=== PATIENT | female | born 1940 | race Caucasian/White ===

== ENCOUNTER → 2017-11-06 15:48 | Outpatient (CLI) | payer MEDICARE, SELFPAY ==
--- NOTE | 2017-11-06 | IMM_PTH ---
PATIENT: BRYANT MILIAN LOC: [facility] U#:[id number] AGE/SX: 85/F ROOM: RE11/06/[address]: Dr. Fer Banda MD : 1940 BED: DIS: SPEC #: [id number] RECD: 11/10/17 10:45 STATUS: PENG REQ #: [id number] LUIS M: 11/06/17 00:[address]: Fer Banda DEPT: IMMUNOHISTOCHEMISTRY RECD BY: Gricel Cooper ENTERED: 11/10/17 10:47 SP TYPE: IMMUNO OTHR DR: JULIA Romo Tissues: Right breast, NOS Procedures: CALPONIN-1 (add) CK5-6 (add) CK8 (add) E-CAD (add) HER2 VERONICA (add) KI-67 (add) P53 (add) MT (add) IN SITU HYBRIDIZATION P40 (add) ER (initial) PHYSICIAN & INSTITUTION [address] [address] SPECIMEN INFORMATION: Tissue Source: Right breast Clinical Info: Abnormal mammogram Specimen Number: [id number] CPT code: 93531, 26488 x6, 74290 x3 METHODOLOGY: Deparaffinized sections of prefer/formalin-fixed tissue or PAP/DQ stained slides are incubated with monoclonal/polyclonal antibodies/oligonucleotide probes. Localization is made via biotin free immunoperoxidase method. Appropriate controls are performed and reacted as expected. Results on target cell population are indicated in the following table: RESULTS: ANTIBODY / CLONE RESULT P53 (DO-7) negative, 0% Ki-67 (30-9) positive, low CK8 (69fcbyY41) positive CK5-6 (D5 & 1684) negative Calponin-1 (JO848C) negative P40 (BC28) negative E-Cad (ECH-6) positive MORPHOMETRIC ANALYSIS ER (clone 6F11) >95%, strong MT (clone 16/1E2) 72%, strong to moderate Her-2Neu (clone CB11) 1-2+ The prognostic test for HER2 is performed on formalin-fixed paraffin embedded tissue. A 3+ (positive) staining pattern is defined as intense, homogeneous, complete, circumferential membranous staining in >10% of contiguous tumor cells. A similar weak (2+) staining pattern is interpreted as equivocal. ZACARIAS follow-up testing is recommended for all equivocal cases. Positivity/negativity for ER/MT is reported if > or < 1% of the tumor cells are immuno- reactive, respectively. The ASCO/CAP criteria is used for scoring. Reference: Journal of Clinical Oncology, 2013; 31:8926-5680 & 2010; 16:0679-0579. Duration of fixation: 77 Hrs; Sample Adequate: Yes. These assays have not been validated on decalcified tissues. Results should be interpreted with caution given the likelihood of false negativity on decalcified specimens. These tests were developed and their performance characteristics determined by [facility]. They may not have been cleared or approved by the U.S. Food and Drug Administration. The FDA has determined that such clearance or approval is not necessary. 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 Positive for estrogen receptors (favorable prognostic indicator). Positive for progesterone receptors (favorable prognostic indicator). Equivocal for overexpression of ITQ3wxt. SJ:radha 11/11/17 ADDENDUM ADDENDUM ADDENDUM ADDENDUM ADDENDUM ADDENDUM ADDENDUM ADDENDUM ADDENDUM ADDENDUM ADDENDUM ADDENDUM ADDENDUM ADDENDUM ADDENDUM ADDENDUM ADDENDUM ADDENDUM ADDENDUM ADDENDUM ADDENDUM 11/12/2017 14:09 ADDENDUM 11/12/2017 14:09 ADDENDUM 11/12/2017 14:09 ADDENDUM 11/12/2017 14:09 ADDENDUM 11/12/2017 14:09 IN SITU HYBRIDIZATION (ZACARIAS) FOR HER2 Interpretation: Not Amplified HER2 : CEP-17 Ratio: 1.17 Average HER2 Signal: 3.75 Average CEP-17 Signal: 3.2 Number of Tumor Cells Scanned: 50 Interpretative Information: The INFORM HER2 Dual ZACARIAS DNA Probe Cocktail assay is performed on formalin-fixed paraffin embedded tissue and determines HER2 gene status by detecting HER2 copies via silver in situ hybridization (SISH) and Chromosome 17 copies via chromogenic red in situ hybridization on tumor cells. A minimum of 20 cells representing > 10% of contiguous and homogeneous invasive tumor cells were analyzed. HER2 gene status is classified as Non-amplified (HER2/Chr17 ratio < 2.0) or Amplified (HER2/Chr17 ratio greater than or equal to 2.0). If the resulting HER2/Chr17 ratio falls within 1.8 - 2.2 (Borderline), retesting by FISH is recommended. Reference: Jerri AC, Ambrosio NICOLE, Mildred DG, et al: Recommendations for Human Epidermal Growth Factor Receptor 2 Testing in Breast Cancer: [place] Society of Clinical Oncology / College of [employer] Clinical Practice Guideline Update. J Clin Oncol 31:3134-3836, 2013.
--- NOTE | 2017-11-06 14:15 | BRBX_PTH ---
PATIENT: BRYANT MILIAN LOC: [facility] U#:[id number] AGE/SX: 85/F ROOM: RE11/06/[address]: Dr. Fer Banda MD : 1940 BED: DIS: SPEC #: [id number] RECD: 11/06/17 15:38 STATUS: PENG MERI #: [id number] LUIS M: 11/06/17 14:[address]: Fer Banda DEPT: SURGICAL PATHOLOGY RECD BY: Gricel Cooper ENTERED: 11/07/17 15:30 SP TYPE: BREAST BX OTHR DR: JULIA Romo Tissues: Right breast, NOS Procedures: Surgery Specimen Level IV HEADER OPERATION: Ultrasound-guided needle core biopsy right breast PRE-OP DIAGNOSIS: Abnormal mammogram right breast TISSUE SUBMITTED: Needle core biopsy right breast ISCHEMIC TIME: 30 seconds FIXATION TIME: 77 hours MICROSCOPIC DIAGNOSIS Right breast, ultrasound-guided core biopsy: Invasive ductal carcinoma. Nuclear grade ? 2 Maximal length ? 7 mm AM:radha 11/10/17 COMMENT ER/OR/Wtl0xuo studies are being performed on sections of tumor and the results from this study will be reported separately ([id number]). Case has been reviewed in consultation with Dr. Miles who concurs with the above diagnosis. IDC:[id number] MICROSCOPIC DESCRIPTION Slides are reviewed. GROSS DESCRIPTION Received in fixative is one container labeled with the patient's name and designated right breast biopsy. The specimen consists of multiple elongated fragments of bond-yellow fibroadipose tissue that in aggregate measure 1.6 x 0.2 x 0.1 cm. The entire specimen is submitted in one cassette. / SJ:radha 11/07/17 TC:0 CPT: 62902 ADDENDUM ADDENDUM ADDENDUM ADDENDUM ADDENDUM ADDENDUM ADDENDUM ADDENDUM ADDENDUM ADDENDUM 05/24/2019 09:33 ADDENDUM 05/24/2019 09:33 ADDENDUM 05/24/2019 09:33 ADDENDUM 05/24/2019 09:33 ADDENDUM 05/24/2019 09:33 This addendum is added to incorporate an outside pathology consultation report. The case was examined at [facility] (#[id number]) and the following diagnosis was rendered. Right breast, ultrasound-guided core biopsy: Invasive ductal carcinoma, provisional histologic grade 2. Please see complete above mentioned consultation report in EMR
== END ==
PROVIDERS: Family Provider Physician Assistant; PCP Physician Assistant; Visit Provider Surgery
DX: R92.8 Other abnormal and inconclusive findings on diagnostic imaging of breast (principal); C50.911 Malignant neoplasm of unspecified site of right female breast
CPT/HCPCS: 88305; 88341; 88342; 88368

== ENCOUNTER → 2017-11-24 10:53 | Outpatient (CLI) | payer MEDICARE, SELFPAY ==
--- NOTE | 2017-11-24 11:30 | PET_ITS ---
EXAMINATION: FDG PET CT INDICATIONS: A 77-year-old female with reported history of carcinoma of the breast presenting for initial staging examination. COMPARISON EXAMINATION: None available. INDEX LESION SIZE SUV INTERPRETATION Right breast 14.2 mm x 24.5 mm (frame 165) 3.7 Fulfills quantitative criteria for viable neoplasm Right axilla (n R 2) 14.8 mm largest (frame 186) 2.5 (max) Fulfills quantitative criteria for viable neoplasm NON-INDEX LESION SIZE SUV INTERPRETATION Bilateral thoracic perihilum 2.0 (max) Quantitative criteria for viable neoplasm are not fulfilled TECHNIQUE: Following the intravenous administration of 13.62 mCi of F-18 deoxyglucose via the left antecubital fossa, multiplanar image acquisitions of the neck, chest, abdomen and pelvis to level of mid thigh, obtained at one hour post radiopharmaceutical administration contemporaneously interpreted with the current CT of the neck, chest, abdomen and pelvis to level of mid thigh, dated 11/24/17 via coregistration reveal: SERUM GLUCOSE LEVEL: 89 mg/dl. HEIGHT: 65 inches. WEIGHT: 102 lbs. FINDINGS: 1. Focal increased glucose metabolism is defined in the right breast generating a calculated maximum standard uptake value of 3.7. The maximal axial diameter of the corresponding hypermetabolic soft tissue density on review of CT of the thorax dated 11/24/17 is 14.2 mm (transverse) x 24.5 mm (AP). 2. Several foci of increased glucose concentration are manifest within the right axilla generating a calculated maximum standard uptake value of 2.5. The maximal axial diameter of the largest, most conspicuous hypermetabolic soft tissue density on review of CT of the thorax dated 11/24/17 is 14.8 mm (AP). 3. Normal physiologic distribution of the radiopharmaceutical is apparent in the hepatic (2.6) and splenic parenchyma, both renal units, bladder and visualized intestinal tract. There is symmetric and preserved glucose metabolism noted in the visualized portion of the frontal, occipital, temporal and parietal lobes of the cerebral cortex, as well as cerebral hemispheres and basal ganglia. Diffuse intestinal tract activity is noted throughout all four quadrants of the abdominal-pelvic retroperitoneum, mesentery consistent with normal physiologic distribution of the radiopharmaceutical. There is an increase in glucose concentration observed in the ascending and descending thoracic aorta. Prominent glucose concentration is demonstrated in the second-fifth lumbar vertebrae contiguous to the facet joints most consistent with degenerative arthritis. An increase in glucose concentration is defined in the paravertebral soft tissue musculature of the upper thoracic and lower lumbar spine most consistent with a component of muscle tension artifact. Pertinent CT findings are as follows. CHEST: Atherosclerotic calcification is defined in the thoracic aorta without evidence of dilatation, aneurysm formation. Coronary arterial calcification is observed. Bilateral axillary soft tissue densities are non-glucose avid. There are no parenchymal densities-nodules defined in the right-left hemithorax demonstrating discernible, quantitatively significant increased glucose metabolism. Calcification is defined within the right breast. A small hiatal hernia is defined. ABDOMEN AND PELVIS: Atherosclerotic calcification is defined in the abdominal aorta without evidence of dilatation, aneurysm formation. Pelvic arterial calcification is demonstrated. Right-left inguinal soft tissue densities are ametabolic. Calcifications are noted in the bilateral lower hemipelvis. SKELETAL: Degenerative changes defined in the cervical, thoracic and lumbar spine demonstrate no evidence for glucose hypermetabolism. PET/PET/CT Tumor Base -Thigh Init IMPRESSION: 1. ABNORMAL EXAMINATION INDICATIVE OF MALIGNANT VIABLE NEOPLASM. 2. Increased glucose concentration defined in the right breast fulfills quantitative criteria for viable neoplasm. 3. Right axillary hypermetabolic foci fulfill quantitative criteria for malignant transformation. 4. Enhanced glucose concentration visualized in the ascending and descending thoracic aorta is commensurate with activated leukocytes associated with atherosclerotic plaque formation. (Lenore et al, Clinical Nuclear Medicine 29:93, 2004). 5. Bilateral thoracic perihilar mild increased glucose concentration does not fulfill quantitative criteria for viable neoplasm. (Faiza et al, Journal of Clinical Oncology 16:2142, 1998). 6. No other quantitatively significant hypermetabolic abnormalities are noted. There is no definitive scintigraphic evidence of distant metastatic disease. Electronic Signature Ike Lucero D.O. Electronically Signed: Ike Lucero DO at 23:55 EDT Tel , Service support ,
== END ==
PROVIDERS: Family Provider Physician Assistant; PCP Physician Assistant; Visit Provider Internal Medicine Hematology & Oncology
DX: C50.111 Malignant neoplasm of central portion of right female breast (principal)
CPT/HCPCS: 78815; A9552; A4216

== ENCOUNTER → 2017-11-26 13:13 | Outpatient (CLI) | payer MEDICARE, SELFPAY ==
--- NOTE | 2017-11-26 13:15 | ECHOCS_ITS ---
Reason For Study: PRE OP (pre chemo) Procedure This was a 2D Doppler, Color Flow transthoracic echocardiogram. The study was technically limited. The study was technically difficult. Contrast injection was performed. Poor accoustic windows. Exam performed in department. Left Ventricle Normal size and thickness. The estimated ejection fraction is 75 %. Stage 1 diastolic dysfunction. No regional wall motion abnormalities noted. Right Ventricle Normal size and thickness. Normal systolic function. Atria Normal left atrium. Normal right atrium. Normal atrial septum. Mitral Valve The mitral valve is structurally normal. No prolapse or stenosis seen. Tricuspid Valve Normal tricuspid valve. Trivial tricuspid valve insufficiency. Right ventricular systolic pressure estimated to be 20 mmHg. Aortic Valve Normal aortic valve. Trisinus/trileaflet aortic valve. Pulmonic Valve Normal pulmonic valve. Trivial pulmonic valve insufficiency. Great Vessels Normal aortic root. Normal arch. Normal inferior vena cava. Inferior vena cava collapse with sniff. Pericardium/Pleural No pericardial effusion. MMode/2D Measurements & Calculations LVIDd: 3.4 cm IVSd: 1.2 cm Ao root diam: 3.0 cm LVIDs: 2.0 cm LVPWd: 1.1 cm LA dimension: 2.4 cm FS: 41.3 % Doppler Measurements & Calculations MV E max cecil: 74.7 cm/sec Lat Peak E' Cecil: 6.5 cm/sec Med Peak E' Cecil: 8.5 cm/sec MV A max cecil: 92.1 cm/sec E/E' lat: 11.5 E/E' med: 8.8 MV E/A: 0.81 Ao V2 max: 96.2 cm/sec LV V1 max: 64.0 cm/sec PA V2 max: 143.8 cm/sec Ao max P.7 mmHg LV V1 max P.7 mmHg TR max cecil: 191.4 cm/sec TR max P.7 mmHg Interpretation Summary The estimated ejection fraction is 75 %. Stage 1 diastolic dysfunction. Trivial tricuspid valve insufficiency. Right ventricular systolic pressure estimated to be 20 mmHg. The study was technically adequate. There is no comparison study available. Contrast injection was performed. Ordering Physician: Javan Castro Referring Physician: Javan Castro Performed By: Chelita Vasquez RDCS, RVT
== END ==
PROVIDERS: Family Provider Physician Assistant; PCP Physician Assistant; Visit Provider Internal Medicine Hematology & Oncology
DX: Z01.818 Encounter for other preprocedural examination (principal)
CPT/HCPCS: 93306; Q9957; A4216; C8929

== ENCOUNTER → 2018-11-03 | Outpatient (CLI) | payer MEDICARE, SELFPAY ==
[2018-10-27 11:29] VITALS: BMI 17.1
--- NOTE | 2018-11-03 10:53 | MRI_ITS ---
STUDY: BILATERAL BREAST MR WITHOUT AND WITH CONTRAST REASON FOR EXAM: Female, 78 years old. History of right breast cancer diagnosed in October 2017. Follow-up. TECHNIQUE: Multi-sequence multi-echo imaging of both breasts was performed with a dedicated breast coil. T1-weighted and T2-weighted images were performed before the administration of contrast. T1-weighted images were also performed after the administration of 9 IV Dotarem without complications. COMPARISON: Prior breast ultrasound dated August 25, 2018. Prior bilateral diagnostic mammogram dated October 09, 2017. FINDINGS: RIGHT BREAST: The breast tissue is scattered fibroglandular densities with minimal background enhancement. There are postsurgical changes noted in the right breast. There are no abnormal enhancing masses or areas of non-mass enhancement in the right breast. LEFT BREAST: The breast tissue is scattered fibroglandular densities with minimal background enhancement. There are no abnormal enhancing masses or areas of non-mass enhancement in the left breast. There are no enlarged or abnormal lymph nodes. There is no abnormality in the visualized regions of the chest or liver. MRI/Breast Bilateral W/O and W IMPRESSION: No abnormality noted on the bilateral breast MRI examination with contrast. CATEGORY: BIRADS Category 2: Benign. A letter regarding these results will be sent to the patient by the facility within 30 days. Electronically Signed: Rakesh Roque MD at 11:42 EDT , Service support ,
== END | disposition home or self-care (01) ==
PROVIDERS: Family Provider Physician Assistant; PCP Physician Assistant; Referring Provider Internal Medicine Hematology & Oncology; Visit Provider Internal Medicine Hematology & Oncology
DX: C50.911 Malignant neoplasm of unspecified site of right female breast (principal); C77.9 Secondary and unspecified malignant neoplasm of lymph node, unspecified
CPT/HCPCS: 77049; A9575; A4216; C8908

== ENCOUNTER 2019-06-30 10:32 | Inpatient (IN) | payer MEDICARE, SELFPAY ==
[2018-11-05 13:41] VITALS: BMI 17.1
[2019-06-30 10:33] VITALS: BP 167/65; PULSE 91; RESP 16; TEMP 37.2; O2SAT 98; BMI 18.1
[2019-06-30] MEDS: morphine 8 MG/ML Syringe SC (11:04)
--- NOTE | 2019-06-30 11:34 | ED.VIS.GEN ---
History of Present Illness Chief Complaint: Lower Extremity Injury Informant: Patient, Family Onset: Today Current Severity: Mild Narrative: Patient is status post right mastectomy related to breast cancer, she indicates she basically was trying to get up from the chair the seat cushion moved and she fell landing on her right hip this morning she did not strike her head, her only complaint is right hip pain she is unable to walk and brought in for evaluation Past Medical History - Allergies and Home Meds Allergies/Adverse Reactions: Allergies Penicillins Allergy (Intermediate, Verified 06/30/19 10:40) Magalis Primary Care Physician: Dannielle Blanco PA [Primary Care Provider] - Past Medical History: - - Recent right mastectomy related to breast cancer at [facility] Smoking Status: Current every day smoker Review of Systems General: Denies: Chills, Fever, Sweats Eyes: Denies: Visual changes - bilaterally, Diplopia ENT: Denies: Rhinorrhea, Sore throat Cardiovascular: Denies: Chest pain, Palpitations Respiratory: Denies: Dyspnea, Cough, Dyspnea on exertion Gastrointestinal: Denies: Abdominal pain, Nausea, Vomiting, Diarrhea, Melena, Hematochezia Genitourinary: Denies: Dysuria, Hematuria, Frequency Musculoskeletal: Reports: Extremity Pain, - - Right hip pain. Denies: Back pain Skin: Reports: - - Some minor postop discomfort related to the right mastectomy nothing related to the fall. Denies: Rash, Wounds Neurological: Denies: Headache, Weakness, Numbness Physical Exam Vital Signs/Narrative: Vital Signs Temp Pulse Resp BP Pulse Ox 06/30/19 10:33 99 F 91 16 167/65 H 98 General: Well nourished, Well developed, No Acute Distress Head: Normocephalic, Atraumatic Eyes: Perrl, EOMI ENT: Moist mucous membranes, No rhinorrhea Neck: Supple, Nontender Cardiovascular: Regular rate, Regular rhythm, No murmurs Respiratory: No distress, CTA bilaterally, Chest nontender, - - Right mastectomy incisions intact there is minor discomfort she states is basically postoperative nothing new or different Abdomen: Soft, Nontender, Nondistended, Normal bowel sounds Back: Nontender, Normal Inspection Extremities: No edema, Tenderness, - - She has decreased range of motion to the right hip with pain on palpation the knee tib-fib ankle and foot are unremarkable dorsi and plantar flexion normal neurovascular function normal the back is unremarkable the pelvis is stable the left lower extremity is unremarkable Skin: Normal color, No rash Neurological: Alert, Oriented x3, Cranial nerves II-XII grossly intact, Normal Strength, Normal Sensation Psychological: Normal affect, Normal Mood Diagnostic/Tx/Re-eval - Medical Decision Making Given all of the above x-rays obtained morphine for pain The patient's hip x-ray shows femoral neck subcapital fracture right screening labs chest x-ray other work-up pending at this time given all the above she was told of the above she would like to stay at [facility] for management of hip fracture we have contacted the hospitalist orthopedics [employer] will arrange admission Screening labs will be reviewed by the inpatient team Admit stable Final impression Right hip fracture secondary to fall Recent right mastectomy related to breast cancer ED Disposition - Plan for ED Patient: Referrals: Dannielle Blanco PA [Primary Care Provider] -
--- NOTE | 2019-06-30 11:51 | RAD_ITS ---
STUDY: X-RAY - PELVIS AND RIGHT HIP REASON FOR EXAM: Female, 79 years old. Right hip pain TECHNIQUE: 3 views of the pelvis and hip. COMPARISON: None. FINDINGS: There is impacted nondisplaced fracture of the right proximal femur at the femoral neck. The remainder of the osseous structures appear intact Moderate degenerative bilateral hip joint space narrowing. No significant soft tissue swelling. Prominent stool burden. IMPRESSION: Impacted right femoral neck fracture. Electronically Signed: Mike Alatorre, at 12:50 EST Tel , Service support , RAD/HIP, UNI W/ Pelvis 2-3 Views
--- NOTE | 2019-06-30 11:51 | RAD_ITS ---
STUDY: X-RAY CHEST REASON FOR EXAM: Female, 79 years old. Trauma TECHNIQUE: Single frontal view of the chest. COMPARISON: None. FINDINGS: Cardiac silhouette unremarkable. Pulmonary vascularity unremarkable. Aorta unremarkable. Surgical clips are seen overlying the right chest wall. No focal airspace opacities. No pleural effusions. Upper abdomen unremarkable. Osseous structures intact. No pneumothorax. RAD/Chest 1 View (Portable) IMPRESSION: No acute cardiopulmonary findings Electronically Signed: Mike Alatorre, at 12:52 EST Tel , Service support ,
--- NOTE | 2019-06-30 11:53 | EKG12_ITS ---
Test Reason : FALL Blood Pressure : / mmHG Vent. Rate : 072 BPM Atrial Rate : 072 BPM P-R Int : 172 ms QRS Dur : 072 ms QT Int : 404 ms P-R-T Axes : 080 058 075 degrees QTc Int : 442 ms Normal sinus rhythm Low voltage QRS Septal infarct , age undetermined Abnormal ECG Confirmed by BHARAT OCHOA, ISAIAH ([id number]), science editor OFE LOPEZ ([id number]) on 07/04/2019 9:48:34 AM Referred By: Chico Veliz Confirmed By:ROSA NICHOLSON MD
--- NOTE | 2019-06-30 11:57 | NURSING ---
NO OLD EKGS
[2019-06-30 12:39] LABS: Bacteria 0 SEEN /hpf (None Seen); Mucous, Urine 0 SEEN /hpf (<or=2+); Red Blood Cells-Urine 0 SEEN /hpf (0-5); Squamous Epithelial Cells - UA 0 SEEN /hpf (5-10); White Blood Cells 0 SEEN /hpf (0-5)
[2019-06-30 12:40] LABS: Color, Urine Yellow (Yellow); Glucose, Dipstick Normal (Normal); Ketone-Dipstick Negative (Negative); Leukocyte Esterase-Dipstick Negative /ul (Negative); Nitrite-Dipstick Negative (Negative); Occult Blood-Urine Negative /ul (Negative); Protein-Dipstick Negative (Negative); Urine Bilirubin Dipstick Negative (Negative); Urine Clarity Clear (Clear); Urine Urobilinogen Normal (Normal)
--- NOTE | 2019-06-30 12:56 | HP.PCM_ITS ---
Problem List (1) Status post fall Status: Acute (2) Hip fracture, right Status: Acute Qualifiers: Encounter type: initial encounter Fracture type: closed Qualified Code(s): S72.001A - Fracture of unspecified part of neck of right femur, initial encounter for closed fracture (3) Primary cancer of right female breast Status: Chronic (4) Regional lymph node metastasis present Status: Chronic (5) Tobacco dependency Status: Chronic (6) Bruit of left carotid artery Status: Chronic (7) Chronic rhinitis Status: Chronic (8) Thyromegaly Status: Chronic (9) Multinodular goiter Status: Chronic (10) Mild anemia Status: Chronic (11) Cholelithiases Status: Chronic (12) History of skin cancer Status: Chronic (13) Hemangioma Status: Chronic (14) Lentigo Status: Chronic (15) Keratosis Status: Chronic (16) Tobacco abuse Status: Chronic (17) Lung nodule Status: Chronic (18) Breast mass in female Status: Chronic (19) SOB (shortness of breath) Status: Acute History of Present Illness Date of Admission: 06/30/19 Chief Complaint: Right hip pain The patient is a 79 year old F with past medical history single for tobacco dependence, hypertension, right breast cancer for which she underwent mastectomy with axillary lymph node dissection couple of weeks prior to her admission at [facility] who presented to the ED with right hip pain. Patient states she was in her usual state of health when she slipped off a kitchen stool and fell to the ground subsequently developed right hip pain. Presented to the ED as a result. Imaging studies obtained in the emergency department demonstrated subcapital femoral neck fracture involving the right hip. Orthopedic surgeon on-call was notified and patient admitted to regular nursing floor for further management. Past Medical History Past Medical History (Chronic Problems): Chronic Problems (Last Reviewed 06/30/19 @ 12:59 by Chico Veliz MD) Primary cancer of right female breast (Chronic) Regional lymph node metastasis present (Chronic) Tobacco dependency (Chronic) Bruit of left carotid artery (Chronic) Chronic rhinitis (Chronic) Thyromegaly (Chronic) Multinodular goiter (Chronic) Mild anemia (Chronic) Cholelithiases (Chronic) History of skin cancer (Chronic) Hemangioma (Chronic) Lentigo (Chronic) Keratosis (Chronic) Tobacco abuse (Chronic) Lung nodule (Chronic) Breast mass in female (Chronic) Medical History: Medical History (Last Reviewed 06/30/19 @ 12:59 by Chico Veliz MD) Primary cancer of right female breast (Chronic) C50.911 Regional lymph node metastasis present (Chronic) C77.9 Pneumonia (Resolved) J18.9 Status post fall (Acute) Z91.81 Menopause (Resolved) Z78.0 Weight loss (Resolved) R63.4 Fatigue (Resolved) R53.83 Facial pain (Resolved) R51 Nausea (Resolved) R11.0 Bruit of left carotid artery (Chronic) R09.89 Chronic diarrhea (Resolved) K52.9 Bronchitis (Resolved) J40 Chronic rhinitis (Chronic) J31.0 Otitis media (Resolved) H66.90 Hyponatremia (Resolved) E87.1 Thyromegaly (Chronic) E01.0 Multinodular goiter (Chronic) E04.2 Mild anemia (Chronic) D64.9 Cholelithiases (Chronic) K80.20 Neoplasm (Resolved) D49.9 History of skin cancer (Chronic) Z85.828 Hemangioma (Chronic) D18.00 Lentigo (Chronic) L81.4 Keratosis (Chronic) L57.0 Tobacco abuse (Chronic) Z72.0 Lung nodule (Chronic) R91.1 Breast mass in female (Chronic) N63.0 SOB (shortness of breath) (Acute) R06.02 Breast cancer, right Onset Date: ~10/2017 C50.911 Allergies Penicillins Allergy (Intermediate, Verified 06/30/19 10:40) Hives Home Medications: Ambulatory Orders Medication Instructions Recorded calcium carbonate 600 mg calcium 600 mg PO ONCE tab 08/02/17 (1,500 mg) tablet omega-3 fatty acids 1,000 mg 1,000 mg PO QDAY 08/02/17 capsule vitamin B complex no.2 ER 100 mg 1 tab PO DAILY 08/02/17 tablet,extended release lisinopril 10 mg tablet 5 mg PO QDAY 08/07/17 Lorazepam [Ativan] 0.5 mg PO BID PRN PRN 11/20/17 Cannabidiol (Cbd) Extract 100 mg PO DAILY 10/27/18 [Epidiolex] Surgical History: Surgical History (Last Reviewed 06/30/19 @ 12:59 by Chico Veliz MD) S/P partial hysterectomy (Resolved) Z90.711 H/O thyroglossal duct cyst Z87.798 S/P breast biopsy Z98.890 Smoking Status: Current every day smoker - *Family History Maternal Family History: Family History (Last Reviewed 06/30/19 @ 12:59 by Chico Veliz MD) Brother Arthritis Mother Heart disease Review of Systems Constitutional: Denies: Anorexia, Chills, Fever, Night Sweats, Weight Change HEENT: Denies: Head Aches, Sinus Congestion, Sinus Drainage Cardiovascular: Denies: Chest Pain, Orthopnea, Palpitations, Paroxysmal Noc. Dyspnea Respiratory: Denies: Cough, Shortness of breath at rest, Shortness of breath upon exertion, Sputum production Gastrointestinal: Denies: Abdominal Pain, Hematemesis, Hematochezia, Nausea, Melena, Vomiting Genitourinary: Denies: Dysuria, Frequency, Hematuria, Urgency Musculoskeletal: Reports: Joint Pain. Denies: Joint Tenderness Skin: Denies: Rash Neurological: Denies: Focal weakness, Numbness, Tingling Psychiatric: Denies: Homicidal Ideations, Suicidal Ideations Hematologic/ Lymphatic: Denies: Easy Bruising, Easy Bleeding VTE Information - Inpt Only VTE Present on Admission: No VTE Mechan Device Prophylaxis: SCD's VTE Pharm Prophylaxis ordered?: Yes Patient Problems: Active and Suspected Problems (Last Reviewed 06/30/19 @ 12:59 by Chico Veliz MD) Hip fracture, right (Acute) Objective: GENERAL: cooperative HEENT: Atraumatic; EYES; Anicteric, Normal Conjunctiva NECK; supple, normal thyroid, RESPIRATORY: Diminished to auscultation CARDIOVASCULAR: Regular S1 S2, GI: soft, normoactive bowel sounds, : No Renal angle tenderness; EXTREMITIES: No edema, no clubbing, MUSCULOSKELETAL: Right hip tenderness NEURO: Awake; no lateralizing signs. SKIN: No Rash PSYCH; Flat affect - Physical Exam Vitals/I&O's: Vital Signs Temp Pulse Resp BP Pulse Ox 99 F 91 16 167/65 H 98 06/30/19 10:33 06/30/19 10:33 06/30/19 10:33 06/30/19 10:33 06/30/19 10:33 Weight: 50.9 kg Body Mass Index (BMI) 18.1 Laboratory Results 06/30/19 12:35: Urine Color Yellow, Urine Clarity Clear, Urine pH 8.0, Ur Specific [place] 1.010, Urine Protein Negative, Urine Glucose (UA) Normal, Urine Ketones Negative, Urine Occult Blood Negative, Urine Nitrite Negative, Urine Bilirubin Negative, Urine Urobilinogen Normal, Ur Leukocyte Esterase Negative, Urine RBC 0 SEEN, Urine WBC 0 SEEN, Ur Squamous Epith Cells 0 SEEN, Urine Ba cteria 0 SEEN, Urine Mucus 0 SEEN Assessment/Plan All Active Problems (Last Reviewed 06/30/19 @ 12:59 by Chico Veliz MD) Educational circumstance (Resolved) Hip fracture, right (Acute) S/P partial hysterectomy (Resolved) Pneumonia (Resolved) Status post fall (Acute) Menopause (Resolved) Weight loss (Resolved) Fatigue (Resolved) Facial pain (Resolved) Nausea (Resolved) Chronic diarrhea (Resolved) Bronchitis (Resolved) Otitis media (Resolved) Hyponatremia (Resolved) Neoplasm (Resolved) SOB (shortness of breath) (Acute) Patient is an 79-year-old lady who presented with right hip pain following a fall imaging studies demonstrated right femur neck subcapital fracture 1. Status post right femoral neck fracture ~ Patient has been admitted to the regular nursing floor immobilized, started on pain medication, consult placed to orthopedic surgery (Case was discussed with Dr. Herrera) for definitive management Did review patient presurgery diagnostic data including EKG (normal sinus rhythm without any evidence of ischemia); Did review patient electrolytes and CBC. Patient risk for surgery estimated to be low to moderate would recommend pro ceeding with surgery without any further evaluation 2. Right breast cancer ~ Status post mastectomy at [facility] couple of weeks prior to patient admission patient had received neoadjuvant chemotherapy prior to surgery. She is scheduled to undergo radiation therapy 3. Hypertension ~ blood pressure controlled, home medications continued with dose adjustment as needed 4. Tobacco dependence ~counseled on cessation, offered nicotine patch for tobacco cravings 5. DVT prophylaxis ~ SCDs for now with plans to initiate low molecular with heparin following her procedure Advance planning; did discuss with the patient and family regarding advanced directives as well as CODE STATUS. Did explain the various scenarios involved ( FULL CODE, DNR CCA, DNR CCA with no intubation, and DNR CC and what each meant) patient elected to remain full code with intubation and CPR if needed. Order was placed. Time spent on discussion 18 minutes. Clinical Impression(s) from Imaging Studies Chest X-Ray 06/30/19 11:51 IMPRESSION: No acute cardiopulmonary findings Electronically Signed: Mike Alatorre, at 12:52 EST Tel , Service support , Code Visit Inpatient E&M: 88477 Init Hosp L3 Procedures: 03239 Advncd Care Plan 30 Min
[2019-06-30 13:03] VITALS: BP 141/65; PULSE 72; RESP 14; O2SAT 96
[2019-06-30 13:12] LABS: Absolute Neutrophil Count 8.2 X10^3/uL (2.0-7.7); Basophil# 0.02 X10^3/uL; Basophil% 0.2 % (0-1); Eosinophil# 0.03 X10^3/uL; Eosinophils% 0.3 % (0-5); Hematocrit 41.6 % (37-47); Hemoglobin 14.3 g/dL (12.0-15.0); Mean Corp Hgb Conc 34.4 g/dL (32-36); Mean Corpuscular Volume 87.2 fL (81-99); Mean Platelet Vol. 8.6 fl (6.2-12.0); Monocyte# 0.43 X10^3/uL; Monocyte% 4.1 % (0-10); NRBC Flagged by Analyzer 0 % (0-5); Neutrophil # 8.22 X10^3/uL (2.7-7.7); Neutrophil % 77.8 % (47-70); POSITIVE COUNT YES; Platelet Count 175 K/mm3 (150-450); RBC Distribution Width CV 12.2 % (11.6-14.6); RBC Distribution Width SD 39.1 fl (35.1-43.9); Red Blood Count 4.77 M/mm3 (4.2-5.4); White Blood Count 10.6 K/mm3 (4.4-11.0)
[2019-06-30 13:22] LABS: Prothrombin Time (Protime)PT. 12.6 SECONDS (11.7-14.9)
[2019-06-30 13:28] VITALS: BP 141/65; PULSE 72; RESP 17; O2SAT 96
[2019-06-30 13:29] LABS: AST(SGOT) 33 U/L (15-37); Alanine Aminotransfer ALT/SGPT 34 U/L (13-56); Albumin, Serum 3.7 g/dL (3.2-5.0); Alkaline Phosphatase 126 U/L (45-117); Anion Gap 6 (5-15); BUN 13 mg/dL (7-18); Calcium,Total 9.1 mg/dL (8.5-10.1); Chloride 100 mmol/L (98-107); Creatinine, Serum 0.76 mg/dL (0.55-1.02); EST Glomerular Filtration Rate 77 mL/min (>60); Est Glom Filt Rate - Afr Amer 94 mL/min (>60); Estimated Creatinine Clearance 36.05 ml/min; Globulin 3.7 g/dL (2.2-4.2); Glucose 84 mg/dL (74-106); Magnesium 2.1 mg/dL (1.6-2.6); Potassium 4.1 mmol/L (3.5-5.1); Protein, Total 7.4 g/dL (6.4-8.2); Sodium Level 133 mmol/L (136-145)
--- NOTE | 2019-06-30 13:36 | NURSING ---
306 HIP FX KITTOE
[2019-06-30 13:54] LABS: Differential Indicated SCAN CRITERIA MET
[2019-06-30 14:17] VITALS: BMI 18.1
[2019-06-30 15:20] VITALS: BMI 18.4
[2019-06-30 15:26] VITALS: BP 142/72; PULSE 84; RESP 16; TEMP 36.9; O2SAT 95
[2019-06-30] MEDS: Acetaminophen 325 MG Tablet 650 MG PO (16:00)
--- NOTE | 2019-06-30 16:07 | CON.PCM_ITS ---
Reason for Consult Date of Consultation: 06/30/19 History of Present Illness: The patient is a 79 year old F who had an unwitnessed fall onto her right hip. Complains of pain in her right hip only. Patient brought to the emergency room x-rays show a nondisplaced valgus impacted femoral neck fracture. Patient denies pain in other joints. Ortho consulted. See chart for further details regarding complex medical history. [] Past Medical History Past Medical History (Chronic Problems): Chronic Problems (Last Reviewed 06/30/19 @ 12:59 by Chico Veliz MD) Chronic anxiety (Chronic) Primary cancer of right female breast (Chronic) Regional lymph node metastasis present (Chronic) Tobacco dependency (Chronic) Bruit of left carotid artery (Chronic) Chronic rhinitis (Chronic) Thyromegaly (Chronic) Multinodular goiter (Chronic) Mild anemia (Chronic) Cholelithiases (Chronic) History of skin cancer (Chronic) Hemangioma (Chronic) Lentigo (Chronic) Keratosis (Chronic) Tobacco abuse (Chronic) Lung nodule (Chronic) Breast mass in female (Chronic) Medical History: Medical History (Last Reviewed 06/30/19 @ 12:59 by Chico Veliz MD) Primary cancer of right female breast (Chronic) C50.911 Regional lymph node metastasis present (Chronic) C77.9 Pneumonia (Resolved) J18.9 Status post fall (Acute) Z91.81 Menopause (Resolved) Z78.0 Weight loss (Resolved) R63.4 Fatigue (Resolved) R53.83 Facial pain (Resolved) R51 Nausea (Resolved) R11.0 Bruit of left carotid artery (Chronic) R09.89 Chronic diarrhea (Resolved) K52.9 Bronchitis (Resolved) J40 Chronic rhinitis (Chronic) J31.0 Otitis media (Resolved) H66.90 Hyponatremia (Resolved) E87.1 Thyromegaly (Chronic) E01.0 Multinodular goiter (Chronic) E04.2 Mild anemia (Chronic) D64.9 Cholelithiases (Chronic) K80.20 Neoplasm (Resolved) D49.9 History of skin cancer (Chronic) Z85.828 Hemangioma (Chronic) D18.00 Lentigo (Chronic) L81.4 Keratosis (Chronic) L57.0 Tobacco abuse (Chronic) Z72.0 Lung nodule (Chronic) R91.1 Breast mass in female (Chronic) N63.0 SOB (shortness of breath) (Acute) R06.02 Breast cancer, right Onset Date: ~10/2017 C50.911 Allergies Penicillins Allergy (Intermediate, Verified 06/30/19 10:40) Hives Home Medications: Ambulatory Orders Medication Instructions Recorded lisinopril 10 mg tablet 5 mg PO DAILY 08/07/17 Vitamin B Complex 1 tab PO DAILY 06/30/19 Acetaminophen [Tylenol Tablet] 650 mg PO Q6H PRN PRN tab 07/05/19 Calcium Carbonate/Vitamin D3 1 ea PO BID #1 tab 07/05/19 [Os-Johnie 500+D3 Caplet] Docusate Sodium [Colace] 100 mg PO BID cap 07/05/19 Enoxaparin [Lovenox] 40 mg SUBCUT DAILY@0600 syringe 07/05/19 Ensure Enlive 120 ml PO 4X/DAY liquid 07/05/19 Lorazepam [Ativan] 0.5 mg PO BID PRN PRN #14 tab 07/05/19 Nicotine [Nicoderm Cq] 21 mg TRANSDERM. DAILY patch 07/05/19 Ondansetron [Zofran] 4 mg PO Q8H PRN PRN vial 07/05/19 Polyethylene Glycol 3350 [Miralax] 17 gm PO BID packet 07/05/19 Sodium Chloride 0.65% [Bates Nasal 2 spray NASAL TID PRN PRN 07/05/19 [place]] spray.btl Surgical History: Surgical History (Last Reviewed 06/30/19 @ 12:59 by Chico Veliz MD) S/P partial hysterectomy (Resolved) Z90.711 H/O thyroglossal duct cyst Z87.798 S/P breast biopsy Z98.890 Smoking Status: Current every day smoker Tobacco Use: Cigarettes - *Family History Maternal Family History: Family History (Last Reviewed 06/30/19 @ 12:59 by Chico Veliz MD) Brother Arthritis Mother Heart disease Review of Systems Constitutional: Denies: Chills, Fever, Weight Change HEENT: Denies: Head Aches, Sinus Congestion, Sinus Drainage Cardiovascular: Denies: Chest Pain, Palpitations Respiratory: Denies: Cough, Shortness of breath at rest, Sputum production Gastrointestinal: Denies: Abdominal Pain, Nausea, Vomiting Genitourinary: Denies: Dysuria Musculoskeletal: Reports: Joint Pain - Right hip. Denies: Joint Tenderness Skin: Denies: Rash, Wounds Neurological: Denies: Numbness, Tingling, Focal weakness Psychiatric: Denies: Anxiety, Depression, Homicidal Ideations, Suicidal Ideations Hematologic/ Lymphatic: Denies: Easy Bruising, Easy Bleeding - Physical Exam Vitals/I&O's: Vital Signs Temp Pulse Resp BP Pulse Ox 98.4 F 84 16 142/72 H 95 06/30/19 15:26 06/30/19 15:26 06/30/19 15:26 06/30/19 15:26 06/30/19 15:26 Oxygen Delivery Method Room Air Weight: 111 lb Body Mass Index (BMI) 18.4 General: Alert, Oriented x3, Cooperative HEENT: Atraumatic, PERRLA, EOMI, Normocephalic Neck: Supple, No JVD, Negative Carotid Bruits Lungs: Clear to auscultation, Normal air movement Cardiovascular: Regular rate, No murmurs Abdomen: Bowel Sounds Present, Soft, Non Tender Extremities: No edema, Capillary Refill Less than 3 Seconds Skin: No rashes, No breakdown Musculoskeletal: No Tenderness to Palpation of Joints or Extremities, Tenderness - Date of Homans sign, pain with motion of the right hip, secondary survey negative, active range of motion passive range of motion intact ankle, negative Homans Neurological: Cranial nerves II-XII grossly intact Psych/Mental Status: Normal Affect, Appropriate Laboratory Results 06/30/19 12:35: Urine Color Yellow, Urine Clarity Clear, Urine pH 8.0, Ur Specific [place] 1.010, Urine Protein Negative, Urine Glucose (UA) Normal, Urine Ketones Negative, Urine Occult Blood Negative, Urine Nitrite Negative, Urine Bilirubin Negative, Urine Urobilinogen Normal, Ur Leukocyte Esterase Negative, Urine RBC 0 SEEN, Urine WBC 0 SEEN, Ur Squamous Epith Cells 0 SEEN, Urine Bacteria 0 SEEN, Urine Mucus 0 SEEN 06/30/19 13:02: WBC 10.6, RBC 4.77, Hgb 14.3, Hct 41.6, MCV 87.2, MCH 30.0, MCHC 34.4, RDW Std Deviation 39.1, RDW Coeff of [place] 12.2, Plt Count 175, MPV 8.6, Immature Gran % (Auto) 0.600, Neut % (Auto) 77.8 H, Lymph % (Auto) 17.0 L, [place] % (Auto) 4.1, Eos % (Auto) 0.3, Baso % (Auto) 0.2, Absolute Neuts (auto) 8.2 H, Absolute Lymphs (auto) 1.80, Nucleated RBC % 0 06/30/19 13:02: PT 12.6, INR 1.0 06/30/19 13:02: Sodium 133 L, Potassium 4.1, Chloride 100, Carbon Dioxide 27.0, Anion Gap 6, BUN 13, Creatinine 0.76, Estim Creat Clear Calc 36.05, Est GFR (MDRD) Af Amer 94, Est GFR (MDRD) Non-Af 77, BUN/Creatinine Ratio 17.0, Glucose 84, Calcium 9.1, Magnesium 2.1, Total Bilirubin 0.30, AST 33, ALT 34, Alkaline Phosphatase 126 H, Total Protein 7.4, Albumin 3.7, Globulin 3.7, Albumin/Globulin Ratio 1.0 Current Medications Acetaminophen (Tylenol) 650 mg PO Q6H PRN PRN PRN Reason: Pain Score 1-3/Temp > 100.7 F Al Hydroxide/Mg Hydroxide (Mylanta Ii) 30 ml PO Q6H PRN PRN PRN Reason: Gastric Burning Albuterol Sulfate (Ventolin Aerosols) 2.5 mg INHALATION Q2H PRN PRN PRN Reason: Shortness of Breath/Wheezing Enoxaparin Sodium (Lovenox) 40 mg SC DAILY@0600 [facility] Guaifenesin (Robitussin) 20 ml PO Q4H PRN PRN PRN Reason: COUGH Lisinopril (Zestril) 5 mg PO DAILY [facility] Lorazepam (Ativan) 0.5 mg PO BID PRN PRN PRN Reason: ANXIETY Magnesium Hydroxide (Milk Of Magnesia) 30 ml PO DAILY PRN PRN PRN Reason: Constipation Melatonin (Melatonin) 3 mg PO QHS PRN PRN PRN Reason: INSOMNIA Morphine Sulfate () 4 mg IV Q3H PRN PRN PRN Reason: Pain Score 6-10/10 Nicotine (Nicoderm Cq (Pbkc)) 21 mg TRANSDERM. DAILY [facility] Nitroglycerin (Nitrostat) 0.4 mg SUBLINGUAL Q5M PRN PRN Reason: CARDIAC/CHEST PAIN Ondansetron HCl (Zofran) 4 mg IV Q8H PRN PRN PRN Reason: NAUSEA/VOMITING Oxycodone HCl (Oxyir) 10 mg PO Q4H PRN PRN PRN Reason: Pain Score 4-5/10 Sodium Chloride () 10 - 40 ml IV UD PRN PRN Reason: SALINE FLUSH Assessment/Plan All Active Problems (Last Reviewed 06/30/19 @ 12:59 by Chico Veliz MD) Educational circumstance (Resolved) Hip fracture, right (Acute) S/P partial hysterectomy (Resolved) Pneumonia (Resolved) Status post fall (Acute) Menopause (Resolved) Weight loss (Resolved) Fatigue (Resolved) Facial pain (Resolved) Nausea (Resolved) Chronic diarrhea (Resolved) Bronchitis (Resolved) Otitis media (Resolved) Hyponatremia (Resolved) Neoplasm (Resolved) SOB (shortness of breath) (Acute) 2 OR tomorrow for right hip 3 cannulated screw fixation valgus impacted femoral neck fracture Discussed pros and cons to a 3 screws versus hemiarthroplasty. Patient is unable to be weightbearing on her right upper extremity due to the fact that she does had a mastectomy and tubes pulled recently due to her breast cancer and since she will be nonweightbearing and just had surgery recently we will attempt 3 screw fixation discussed in detail the risks associated with this including avascular necrosis and nonhealing of this and conversion to a hemiarthroplasty. Patient would like to try to the less invasive procedure as she is just again had surgery for breast cancer for her on her right side and this is a ipsilateral femoral neck fracture. We will follow her closely get repeat serial x-rays and if this does fail just remove the screws and converted to a theresa-at that time. Patient states no antecedent pain however we will still send reamings at the time of surgery d/t her breast CA Reviewed the pre-operative plans with the patient. Risks and benefits of the procedure were fully explained, including but not limited to infection, neurovascular injury, continued pain, arthritis, stiffness, need for further surgery, re-injury, DVT, PE, general risks of anesthesia, and loss of limb or life. The patient understands all the risks and does wish to proceed with written consent. Ancef 2 g on-call to the OR N.p.o. after midnight discussed with nurse Call with any concerns or questions This note was generated with [employer] software. It may contain incorrect words, spelling, and punctuation that were not noted in checking the note before signing. [id number] dr rdz
[2019-06-30] MEDS: Ondansetron 4 MG/2 ML Vial IV (16:08)
[2019-06-30] MEDS: 0.9% Saline Lock 10 ML Syringe IV ×2 (16:09→21:06)
[2019-06-30] MEDS: Dextrose 5%/0.9% NaCl 1,000 ML 75 ML IV (16:49)
[2019-06-30 19:40] VITALS: RESP 18; O2SAT 96
[2019-06-30 20:53] VITALS: BP 167/76; PULSE 93; RESP 18; TEMP 36.7; O2SAT 93
[2019-06-30] MEDS: Morphine 4 MG/ML Syringe IV (21:06)
[2019-07-01] VITALS (10 sets, daily range): BP systolic 140–185; BP diastolic 66–83; PULSE 78–96; RESP 16–28; TEMP 36.3–37.2; O2SAT 93–100; BMI 18.6; BMI 18.1
--- NOTE | 2019-07-01 | HIP_PTH ---
PATIENT: BRYANT MILIAN LOC: MS3 U#:[id number] AGE/SX: 79/F ROOM: PR306 RE06/30/[address]: Dr. Choco Quintero DO : 1940 BED: 1 DIS: 07/05/2019 SPEC #: [id number] RECD: 07/01/19 14:13 STATUS: PENG REQ #: [id number] LUIS M: 07/01/19 00:[address]: Diamond Herrera DEPT: SURGICAL PATHOLOGY RECD BY: Ludwin Renae ENTERED: 07/01/19 14:13 SP TYPE: TOTAL HIP OTHR DR: DO Dr. Chico Shine MD Melissa Palmer, PA Tissues: Hip, NOS Procedures: Decalcification bone/plaque Surgery Specimen Level IV Comments: @ Ordering doctor for DEC edited from to @ by DARION at 07/01/19 1448 @ Ordering doctor for SUIV edited from to @ by DARION at 07/01/19 1448 @ Submitting doctor edited from to @ by DARION at 07/01/19 1448 HEADER OPERATION: Percutaneous screw pinning PRE-OP DIAGNOSIS: Right hip fracture, acute TISSUE SUBMITTED: Bone and tissue right hip MICROSCOPIC DIAGNOSIS Bone and tissue, right hip: Pieces of benign fibroadipose tissue, fibroconnective tissue, skeletal muscle tissue and bone, with focal area of hemorrhage, clinically right hip fracture. SUKUMAR:jose 07/07/19 MICROSCOPIC DESCRIPTION Slides are reviewed. GROSS DESCRIPTION Received is one container labeled with the patient's name and designated bone and tissue right hip. The specimen consists of multiple minute fragments of reddish-bond soft tissue measuring in aggregate 1.5 x 0.5 x 0.1 cm. The specimen is submitted in its entirety in one cassette after decalcification. / AM:radha 07/01/19 TC: 5 CPT: 20136, 08371
[2019-07-01 05:48] LABS: Absolute Lymphocyte Count 0.99 X10^3/uL (0.83-4.51); Absolute Neutrophil Count 6.3 X10^3/uL (2.0-7.7); Basophil# 0.02 X10^3/uL; Basophil% 0.3 % (0-1); Eosinophil# 0.06 X10^3/uL; Eosinophils% 0.8 % (0-5); Hematocrit 33.3 % (37-47); Hemoglobin 11.4 g/dL (12.0-15.0); Lymphocyte # 0.99 X10^3/ul (4.0); Lymphocyte % 12.8 % (19-41); Mean Corp Hgb Conc 34.2 g/dL (32-36); Mean Corpuscular Hgb 29.9 pg (27.0-32.0); Mean Corpuscular Volume 87.4 fL (81-99); Mean Platelet Vol. 8.5 fl (6.2-12.0); Monocyte# 0.37 X10^3/uL; Monocyte% 4.8 % (0-10); NRBC Flagged by Analyzer 0 % (0-5); Neutrophil # 6.27 X10^3/uL (2.7-7.7); Neutrophil % 80.9 % (47-70); Platelet Count 230 K/mm3 (150-450); RBC Distribution Width CV 12.4 % (11.6-14.6); RBC Distribution Width SD 39.7 fl (35.1-43.9); Red Blood Count 3.81 M/mm3 (4.2-5.4); White Blood Count 7.7 K/mm3 (4.4-11.0)
[2019-07-01] MEDS: Dextrose 5%/0.9% NaCl 1,000 ML 75 ML IV (05:55)
[2019-07-01 06:05] LABS: Anion Gap 5 (5-15); BUN 17 mg/dL (7-18); BUN/Creat Ratio 23.3 RATIO (10-20); Calcium,Total 7.9 mg/dL (8.5-10.1); Chloride 105 mmol/L (98-107); Creatinine, Serum 0.73 mg/dL (0.55-1.02); EST Glomerular Filtration Rate 81 mL/min (>60); Est Glom Filt Rate - Afr Amer 99 mL/min (>60); Estimated Creatinine Clearance 35.66 ml/min; Glucose 241 mg/dL (74-106); Magnesium 1.8 mg/dL (1.6-2.6); Potassium 3.9 mmol/L (3.5-5.1); Sodium Level 134 mmol/L (136-145)
[2019-07-01 06:20] LABS: Thyroid Stim Hormone (TSH) 0.25 uIU/mL (0.358-3.74)
--- NOTE | 2019-07-01 08:46 | PCM.PN.HOSP ---
Patient Problems: Active and Suspected Problems (Last Reviewed 06/30/19 @ 12:59 by Chico Veliz MD) Hip fracture, right (Acute) Reason for Visit: right hip fracture Subjective: right hip fracture Objective: GENERAL: cooperative HEENT: Atraumatic; EYES; Anicteric, Normal Conjunctiva NECK; supple, normal thyroid, RESPIRATORY: Diminished to auscultation CARDIOVASCULAR: Regular S1 S2, GI: soft, normoactive bowel sounds, : No Renal angle tenderness; EXTREMITIES: No edema, no clubbing, MUSCULOSKELETAL: Right hip tenderness NEURO: Awake; no lateralizing signs. SKIN: No Rash PSYCH; Flat affect Vitals/I&O's: Vital Signs Temp Pulse Resp BP Pulse Ox 97.9 F 88 16 161/77 H 94 07/01/19 03:22 07/01/19 03:22 07/01/19 03:22 07/01/19 03:22 07/01/19 03:22 Oxygen Delivery Method Room Air Weight: 50.349 kg Body Mass Index (BMI) 18.4 Intake and Output for Last 24 Hours 06/29/19 06/30/19 07/01/19 23:59 23:59 23:59 Intake Total 1032.5 / 1032.5 Output Total 100 / 150 300 / 300 Balance -100 / -100 732.5 / 732.5 Laboratory Results 06/30/19 12:35: Urine Color Yellow, Urine Clarity Clear, Urine pH 8.0, Ur Specific [place] 1.010, Urine Protein Negative, Urine Glucose (UA) Normal, Urine Ketones Negative, Urine Occult Blood Negative, Urine Nitrite Negative, Urine Bilirubin Negative, Urine Urobilinogen Normal, Ur Leukocyte Esterase Negative, Urine RBC 0 SEEN, Urine WBC 0 SEEN, Ur Squamous Epith Cells 0 SEEN, Urine Bacteria 0 SEEN, Urine Mucus 0 SEEN 06/30/19 13:02: WBC 10.6, RBC 4.77, Hgb 14.3, Hct 41.6, MCV 87.2, MCH 30.0, MCHC 34.4, RDW Std Deviation 39.1, RDW Coeff of Fernando 12.2, Plt Count 175, MPV 8.6, Immature Gran % (Auto) 0.600, Neut % (Auto) 77.8 H, Lymph % (Auto) 17.0 L, [place] % (Auto) 4.1, Eos % (Auto) 0.3, Baso % (Auto) 0.2, Absolute Neuts (auto) 8.2 H, Absolute Lymphs (auto) 1.80, Nucleated RBC % 0 06/30/19 13:02: PT 12.6, INR 1.0 06/30/19 13:02: Sodium 133 L, Potassium 4.1, Chloride 100, Carbon Dioxide 27.0, Anion Gap 6, BUN 13, Creatinine 0.76, Estim Creat Clear Calc 36.05, Est GFR (MDRD) Af Amer 94, Est GFR (MDRD) Non-Af 77, BUN/Creatinine Ratio 17.0, Glucose 84, Calcium 9.1, Magnesium 2.1, Total Bilirubin 0.30, AST 33, ALT 34, Alkaline Phosphatase 126 H, Total Protein 7.4, Albumin 3.7, Globulin 3.7, Albumin/Globulin Ratio 1.0 07/01/19 05:18: WBC 7.7, RBC 3.81 L, Hgb 11.4 L, Hct 33.3 L, MCV 87.4, MCH 29.9, MCHC 34.2, RDW Std Deviation 39.7, RDW Coeff of Fernando 12.4, Plt Count 230, MPV 8.5, Immature Gran % (Auto) 0.400, Neut % (Auto) 80.9 H, Lymph % (Auto) 12.8 L, [place] % (Auto) 4.8, Eos % (Auto) 0.8, Baso % (Auto) 0.3, Absolute Neuts (auto) 6.3, Absolute Lymphs (auto) 0.99, Nucleated RBC % 0 07/01/19 05:18: Sodium 134 L, Potassium 3.9, Chloride 105, Carbon Dioxide 24.0, Anion Gap 5, BUN 17, Creatinine 0.73, Estim Creat Clear Calc 35.66, Est GFR (MDRD) Af Amer 99, Est GFR (MDRD) Non-Af 81, BUN/Creatinine Ratio 23.3 H, Glucose 241 H, Calcium 7.9 L, Magnesium 1.8 07/01/19 05:18: TSH 0.25 L 07/01/19 05:18: Blood Type O POSITIVE, Antibody Screen NEGATIVE Current Medications Acetaminophen (Tylenol) 650 mg PO Q6H PRN PRN PRN Reason: Pain Score 1-3/Temp > 100.7 F Last Admin: 06/30/19 16:00 Dose: 650 mg Documented by: Al Hydroxide/Mg Hydroxide (Mylanta Ii) 30 ml PO Q6H PRN PRN PRN Reason: Gastric Burning Albuterol Sulfate (Ventolin Aerosols) 2.5 mg INHALATION Q2H PRN PRN PRN Reason: Shortness of Breath/Wheezing Enoxaparin Sodium (Lovenox) 40 mg SC DAILY@0600 [facility] Guaifenesin (Robitussin) 20 ml PO Q4H PRN PRN PRN Reason: COUGH Dextrose/Sodium Chloride (Dextrose 5%/0.9% Nacl) 1,000 mls @ 75 mls/hr IV .[id number] [facility] Last Admin: 07/01/19 05:55 Dose: 75 mls/hr Documented by: Lisinopril (Zestril) 5 mg PO DAILY [facility] Lorazepam (Ativan) 0.5 mg PO BID PRN PRN PRN Reason: ANXIETY Magnesium Hydroxide (Milk Of Magnesia) 30 ml PO DAILY PRN PRN PRN Reason: Constipation Melatonin (Melatonin) 3 mg PO QHS PRN PRN PRN Reason: INSOMNIA Morphine Sulfate () 4 mg IV Q3H PRN PRN PRN Reason: Pain Score 6-10/10 Last Admin: 06/30/19 21:06 Dose: 4 mg Documented by: Nicotine (Nicoderm Cq (Pbkc)) 21 mg TRANSDERM. DAILY [facility] Last Admin: 06/30/19 16:48 Dose: 21 mg Documented by: Nitroglycerin (Nitrostat) 0.4 mg SUBLINGUAL Q5M PRN PRN Reason: CARDIAC/CHEST PAIN Ondansetron HCl (Zofran) 4 mg IV Q8H PRN PRN PRN Reason: NAUSEA/VOMITING Last Admin: 06/30/19 16:08 Dose: 4 mg Documented by: Oxycodone HCl (Oxyir) 10 mg PO Q4H PRN PRN PRN Reason: Pain Score 4-5/10 Sodium Chloride () 10 - 40 ml IV UD PRN PRN Reason: SALINE FLUSH Last Admin: 06/30/19 21:06 Dose: 10 ml Documented by: Medical Necessity - Tobacco Use Smoking Status: Current every day smoker Tobacco Use: Cigarettes Assessment/Plan All Active Problems (Last Reviewed 06/30/19 @ 12:59 by Chico Veliz MD) Educational circumstance (Resolved) Hip fracture, right (Acute) S/P partial hysterectomy (Resolved) Pneumonia (Resolved) Status post fall (Acute) Menopause (Resolved) Weight loss (Resolved) Fatigue (Resolved) Facial pain (Resolved) Nausea (Resolved) Chronic diarrhea (Resolved) Bronchitis (Resolved) Otitis media (Resolved) Hyponatremia (Resolved) Neoplasm (Resolved) SOB (shortness of breath) (Acute) Patient is an 79-year-old lady who presented with right hip pain following a fall imaging studies demonstrated right femur neck subcapital fracture 1. Status post right femoral neck fracture ~ Patient has been admitted to the regular nursing floor immobilized, started on pain medication, consult placed to orthopedic surgery (Case was discussed with Dr. Herrera) for definitive management Did review patient presurgery diagnostic data including EKG (normal sinus rhythm without any evidence of ischemia); Did review patient electrolytes and CBC. Patient has no previous history of congestive heart failure ischemic heart disease CVA diabetes or renal insufficiency. Patient risk for surgery estimated to be low to moderate would recommend proceeding with surgery without any further evaluation 2. Right breast cancer ~ Status post mastectomy at [facility] couple of weeks prior to patient admission patient had received neoadjuvant chemotherapy prior to surgery. She is scheduled to undergo radiation therapy 3. Hypertension ~ blood pressure controlled, home medications continued with dose adjustment as needed 4. Tobacco dependence ~counseled on cessation, offered nicotine patch for tobacco cravings 5. DVT prophylaxis ~ SCDs for now with plans to initiate low molecular with heparin following her procedure Code Visit Inpatient E&M: 23126 Subs Hosp L2
[2019-07-01] MEDS: Ondansetron 4 MG/2 ML Vial IV (10:08)
[2019-07-01] MEDS: Morphine 4 MG/ML Syringe IV (10:08)
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
--- NOTE | 2019-07-01 11:31 | NURSING ---
report given to mónica gill in ac-pt to or area
--- NOTE | 2019-07-01 12:00 | RAD_ITS ---
STUDY: X-RAY - RIGHT HIP REASON FOR EXAM: ORIF of hip fracture. TECHNIQUE: 2 intraoperative images of the hip. COMPARISON: Radiographs 06/30/2019. FINDINGS: There are 3 orthopedic screws transfixing a right femoral neck fracture in satisfactory alignment and position. Electronically Signed: Wes Fuentes MD at 14:04 EST Tel , Service support , RAD/Hip Min 2 Views (Portable)
[2019-07-01] MEDS: Cefazolin 2 GM in 0.9% Normal Saline 100 ML IV (12:15)
--- NOTE | 2019-07-01 12:28 | OP.PCM_ITS ---
Report of Operation Date of Procedure: 07/01/19 Anesthesiologist: Jose Luis Jeffrey Specimen's removed: bone from femoral neck Estimated Blood Loss (mL): 50cc Fluids Replaced: 600cc lr Description of Procedure: Preop note Patient is an 79-year-old female who fell onto her buttock right side at home. Patient sustained immediate pain x-rays in the ER showed a nondisplaced valgus impacted femoral neck fracture. Patient has a recent history can significant for breast cancer with radical mastectomy as well as lymph node dissection and is nonweightbearing on her right upper extremity. We discussed different treatment options for this including percutaneous screws versus hemiarthroplasty. Patient does has significant surgery as she is going to be nonweightbearing on her right upper extremity regardless we will attempt to do a less invasive surgical procedure with the risk of it not healing and converting to a hemiarthroplasty versus a larger hemiarthroplasty blood loss given the fact that this is valgus impacted nondisplaced is still treatment is 3 cannulated screws however we did discuss risks and benefits with the family. Risks including but not limited to blood loss, blood clot, infection, neurovascular, failure procedure, loss of life and loss of limb. We discussed morbidity mortality associated with hip fractures in the elderly's within the first year family acknowledge awareness. We will proceed with right hip cannulated screw fixation. Operative note Patient seen and examined preop holding area. Right leg was marked. Patient brought to the operating room placed supine on the operative table. Signed, anesthesia, antibiotics were administered. The right leg was prepped and draped in usual sterile fashion after she was placed in the fracture table. The left leg was then flexed Right-sided and all bony promises well-padded. We then attempted to see if we could reduce her at all we did do a slight reduction in abduction took a little bit of the valgus impaction out we confirmed lateral planes with an further malrotated bowel reduce the hip fracture. We then prepped and draped the right leg standard technique. We measured the with a guidepin for our correct angle insertion for our inferior central screw percutaneous. Timeout was performed. We then made incision over the lateral aspect of the femur right over the lesser trochanter the patient first guidewire center on the AP plane and inferior along the neck. We then placed using the bullet guide of superior and posterior or anterior superior and anterior posterior guidepins as well confirming in both AP and lateral planes good fixation and crossing the fracture site we then measured accordingly and plate and placed our screw fixation using short threads confirming in AP and lateral planes with the front thrusted across the fracture site which they did. We then irrigated the incision with copious amounts of sterile saline. The incision was closed with deep 2-0 Vicryl and samson on the skin. Sterile dressings were applied. Patient tired procedure well no complication transferred recovery room in stable condition. Postoperative note Nonweightbearing right lower extremity is nonweightbearing right upper stomach from breast surgery recently [facility] Physical therapy [facility] This note was generated with [employer]en[employer] dictation software. It may contain incorrect words, spelling, and punctuation that were not noted in checking the note before signing. Discussed with family in detail preoperatively and answered any questions that they had postoperatively as well about the need for her to most likely go to inpatient rehab if she is going be nonweightbearing for at least minimum of 6 weeks until we can see some healing and again the risk associated with this does not heal she develops avascular necrosis the need to conversion to hemiarthroplasty family is aware.
[2019-07-01] MEDS: Mupirocin Ointment 22gm Tube 1 APPLIC (13:33)
[2019-07-01] MEDS: 0.9% Normal Saline 1,000 ML 75 ML IV ×2 (14:30→23:06)
--- NOTE | 2019-07-01 14:32 | CASEMGMT ---
Social Work Note GENARO faxed initial referral to [facility]. GENARO placed a call to Gifty at [facility] and provided referral. GENARO informed Gifty that this worker doesn't have PT/OT yet but will fax PT/OT once available. Plan: [facility] pending acceptance and pre-cert Thao Fry SENIOR MECHANICAL ENGINEER, MEDICATION CARE MANAGER
--- NOTE | 2019-07-01 14:59 | CHAPLAIN ---
patient is out of the room; left a calling card
[2019-07-01] MEDS: Lisinopril 5 MG Tablet PO (15:09)
--- NOTE | 2019-07-01 15:39 | CASEMGMT ---
Social Work Note SW received call from Gifty at [facility] asking if pt has radiation treatment scheduled. GENARO updated Gifty that per pt she doesn't have radiation treatment scheduled yet and she needs to follow up with Dr. Adamson to discuss radiation treatment options. Gifty also states that pt currently takes CBC oils and pt won't be able to take those while at [facility]. GENARO informed Gifty that pt just got back to floor from surgery and this worker will update her tomorrow. GENARO also updated Gifty that PT/OT will likely work with pt tomorrow and then this worker will fax PT/OT when available. Gifty states understanding, states she is able to accept and will submit for pre-cert once PT/OT evaluations are completed. Plan: [facility] pending pre-cert Thao Fry MSW, RETAIL SALESWORKER
[2019-07-01] MEDS: Cefazolin 1 GM/50 ML BAG IV (20:43)
[2019-07-01] MEDS: Acetaminophen 325 MG Tablet 650 MG PO (20:55)
[2019-07-02 02:27] VITALS: BP 125/47; PULSE 71; RESP 16; TEMP 37; O2SAT 96
[2019-07-02] MEDS: Cefazolin 1 GM/50 ML BAG IV (04:51)
[2019-07-02] MEDS: Enoxaparin 40 MG/0.4 ML Syringe SC (04:51)
[2019-07-02 05:14] LABS: Absolute Lymphocyte Count 1.31 X10^3/uL (0.83-4.51); Absolute Neutrophil Count 5.5 X10^3/uL (2.0-7.7); Basophil# 0.01 X10^3/uL; Basophil% 0.1 % (0-1); Eosinophil# 0.02 X10^3/uL; Eosinophils% 0.3 % (0-5); Hemoglobin 9.9 g/dL (12.0-15.0); Lymphocyte # 1.31 X10^3/ul (4.0); Lymphocyte % 17.8 % (19-41); Mean Corp Hgb Conc 34.1 g/dL (32-36); Mean Corpuscular Hgb 29.8 pg (27.0-32.0); Mean Corpuscular Volume 87.3 fL (81-99); Mean Platelet Vol. 8.8 fl (6.2-12.0); Monocyte# 0.53 X10^3/uL; Monocyte% 7.2 % (0-10); NRBC Flagged by Analyzer 0 % (0-5); Neutrophil # 5.46 X10^3/uL (2.7-7.7); Neutrophil % 74.2 % (47-70); Platelet Count 179 K/mm3 (150-450); RBC Distribution Width CV 12.4 % (11.6-14.6); RBC Distribution Width SD 40.1 fl (35.1-43.9); Red Blood Count 3.32 M/mm3 (4.2-5.4); White Blood Count 7.4 K/mm3 (4.4-11.0)
[2019-07-02 05:29] LABS: BUN 14 mg/dL (7-18); Creatinine, Serum 0.66 mg/dL (0.55-1.02); EST Glomerular Filtration Rate 92 mL/min (>60); Estimated Creatinine Clearance 37.12 ml/min; Glucose 104 mg/dL (74-106)
[2019-07-02 05:30] LABS: Anion Gap 6 (5-15); BUN/Creat Ratio 21.2 RATIO (10-20); Chloride 107 mmol/L (98-107); Est Glom Filt Rate - Afr Amer 111 mL/min (>60); Potassium 4.1 mmol/L (3.5-5.1); Sodium Level 133 mmol/L (136-145)
[2019-07-02 07:11] VITALS: O2SAT 96
--- NOTE | 2019-07-02 07:18 | PCM.PN.HOSP ---
Patient Problems: Active and Suspected Problems (Last Reviewed 06/30/19 @ 12:59 by Chico Veliz MD) Hip fracture, right (Acute) Reason for Visit: Follow-up right hip fracture status post ORIF Subjective: Patient underwent right hip cannulated screw fixation on 07/01/[address] Nash. Seen this a.m. complains of some discomfort Objective: GENERAL: cooperative HEENT: Atraumatic; EYES; Anicteric, Normal Conjunctiva NECK; supple, normal thyroid, RESPIRATORY: Diminished to auscultation CARDIOVASCULAR: Regular S1 S2, GI: soft, normoactive bowel sounds, : No Renal angle tenderness; EXTREMITIES: No edema, no clubbing, MUSCULOSKELETAL: Right hip tenderness NEURO: Awake; no lateralizing signs. SKIN: No Rash PSYCH; Flat affect Vitals/I&O's: Vital Signs Temp Pulse Resp BP Pulse Ox 98.6 F 71 16 125/47 H 96 07/02/19 02:27 07/02/19 02:27 07/02/19 02:27 07/02/19 02:27 07/02/19 02:27 Oxygen Flow Rate (L/min) 2 Oxygen Delivery Method Room Air Weight: 52.4 kg Body Mass Index (BMI) 18.6 Intake and Output for Last 24 Hours 06/30/19 07/01/19 07/02/19 23:59 23:59 23:59 Intake Total 3012.50 / 3212.50 732.5 / 732.5 Output Total 100 / 150 875 / 1350 650 / 650 Balance -100 / -100 2137.50 / 1862.50 82.5 / 82.5 Laboratory Results 07/02/19 04:50: WBC 7.4, RBC 3.32 L, Hgb 9.9 L, Hct 29.0 L, MCV 87.3, MCH 29.8, MCHC 34.1, RDW Std Deviation 40.1, RDW Coeff of Fernando 12.4, Plt Count 179, MPV 8.8, Immature Gran % (Auto) 0.400, Neut % (Auto) 74.2 H, Lymph % (Auto) 17.8 L, [place] % (Auto) 7.2, Eos % (Auto) 0.3, Baso % (Auto) 0.1, Absolute Neuts (auto) 5.5, Absolute Lymphs (auto) 1.31, Nucleated RBC % 0 07/02/19 04:50: Sodium 133 L, Potassium 4.1, Chloride 107, Carbon Dioxide 20.0 L, Anion Gap 6, BUN 14, Creatinine 0.66, Estim Creat Clear Calc 37.12, Est GFR (MDRD) Af Amer 111, Est GFR (MDRD) Non-Af 92, BUN/Creatinine Ratio 21.2 H, Glucose 104, Calcium 8.0 L Current Medications Acetaminophen (Tylenol) 650 mg PO Q6H PRN PRN PRN Reason: Pain Score 1-3/Temp > 100.7 F Last Admin: 07/01/19 20:55 Dose: 650 mg Documented by: Al Hydroxide/Mg Hydroxide (Mylanta Ii) 30 ml PO Q6H PRN PRN PRN Reason: Gastric Burning Albuterol Sulfate (Ventolin Aerosols) 2.5 mg INHALATION Q2H PRN PRN PRN Reason: Shortness of Breath/Wheezing Enoxaparin Sodium (Lovenox) 40 mg SC DAILY@0600 [facility] Last Admin: 07/02/19 04:51 Dose: 40 mg Documented by: Guaifenesin (Robitussin) 20 ml PO Q4H PRN PRN PRN Reason: COUGH Sodium Chloride () 1,000 mls @ 75 mls/hr IV .[id number] [facility] Last Infusion: 07/02/19 05:11 Dose: 75 mls/hr Documented by: Lisinopril (Zestril) 5 mg PO DAILY [facility] Last Admin: 07/01/19 15:09 Dose: 5 mg Documented by: Lorazepam (Ativan) 0.5 mg PO BID PRN PRN PRN Reason: ANXIETY Magnesium Hydroxide (Milk Of Magnesia) 30 ml PO DAILY PRN PRN PRN Reason: Constipation Melatonin (Melatonin) 3 mg PO QHS PRN PRN PRN Reason: INSOMNIA Morphine Sulfate () 4 mg IV Q3H PRN PRN PRN Reason: Pain Score 6-10/10 Last Admin: 07/01/19 10:08 Dose: 4 mg Documented by: Nicotine (Nicoderm Cq (Pbkc)) 21 mg TRANSDERM. DAILY [facility] Last Admin: 07/01/19 15:09 Dose: 21 mg Documented by: Nitroglycerin (Nitrostat) 0.4 mg SUBLINGUAL Q5M PRN PRN Reason: CARDIAC/CHEST PAIN Nutritional Formula (Lactose Free) (Ensure Enlive) 120 ml PO 4X/DAY [facility] Ondansetron HCl (Zofran) 4 mg IV Q8H PRN PRN PRN Reason: NAUSEA/VOMITING Last Admin: 07/01/19 10:08 Dose: 4 mg Documented by: Oxycodone HCl (Oxyir) 10 mg PO Q4H PRN PRN PRN Reason: Pain Score 4-5/10 Sodium Chloride () 10 - 40 ml IV UD PRN PRN Reason: SALINE FLUSH Last Admin: 06/30/19 21:06 Dose: 10 ml Documented by: Medical Necessity - Tobacco Use Smoking Status: Current every day smoker Tobacco Use: Cigarettes Assessment/Plan All Active Problems (Last Reviewed 06/30/19 @ 12:59 by Chico Veliz MD) Educational circumstance (Resolved) Hip fracture, right (Acute) S/P partial hysterectomy (Resolved) Pneumonia (Resolved) Status post fall (Acute) Menopause (Resolved) Weight loss (Resolved) Fatigue (Resolved) Facial pain (Resolved) Nausea (Resolved) Chronic diarrhea (Resolved) Bronchitis (Resolved) Otitis media (Resolved) Hyponatremia (Resolved) Neoplasm (Resolved) SOB (shortness of breath) (Acute) Patient is an 79-year-old lady who presented with right hip pain following a fall imaging studies demonstrated right femur neck subcapital fracture 1. Status post right femoral neck fracture ~ Patient has been admitted to the regular nursing floor immobilized, started on pain medication, consult placed to orthopedic surgery (Case was discussed with Dr. Herrera) for definitive management ~07/02/2019; Patient underwent right hip cannulated screw fixation on 07/01/[address] Nash. Seen this a.m. complains of some discomfort 2. Right breast cancer ~ Status post mastectomy at [facility] couple of weeks prior to patient admission patient had received neoadjuvant chemotherapy prior to surgery. She is scheduled to undergo radiation therapy ?07/02/2019 Case was discussed with Dr. Tal Adamson patient's oncologist regarding subsequent care once patient is medically stable. Patient informed of our discussion. 3. Hypertension ~ blood pressure controlled, home medications continued with dose adjustment as needed 4. Tobacco dependence ~counseled on cessation, offered nicotine patch for tobacco cravings 5. DVT prophylaxis ~ on enoxaparin 6. Anemia ~ secondary to acute blood loss anemia following surgery monitoring H&H no indication for blood transfusion at this point Code Visit Inpatient E&M: 61361 Subs Hosp L2
[2019-07-02] MEDS: Lisinopril 5 MG Tablet PO (08:24)
[2019-07-02 08:25] VITALS: BP 143/66; PULSE 74; RESP 18; TEMP 37; O2SAT 95
--- NOTE | 2019-07-02 09:35 | CASEMGMT ---
Addendum entered by Thao Fry 07/02/19 11:58: GENARO did call Gifty at [facility] and updated her that PT/OT have been faxed and to submit for pre-cert. Gifty states she already submitted pre-cert to [facility] Addendum entered by Thao Fry 07/02/19 11:49: PT/OT evaluations are available. GENARO faxed PT/OT to [facility]. GENARO met with pt and updated her that [facility] is able to accept pt pending pre-cert. SW updated pt that she wont be able to take CBC oils at [facility]. Pt states understanding. SW updated pt that if pre-cert is not obtained today then pt will be at [facility] through weekend. Pt states understanding. GENARO completed [facility]escent [facility] in [place] and placed on chart with transportation form. GENARO placed green sheet on the chart in the event pre-cert is obtained. Plan: [facility] pending pre-cert Original Note: Social Work Note GENARO spoke with PT/OT who states they will see pt next. GENARO spoke with physician. Pt is not ready for discharge today but could discharge tomorrow to SNF if pre-cert is obtained today. SW to fax PT/OT when available. Plan: [facility] pending pre-cert Thao Fry PLACEMENT COORDINATOR, VELOCITY SHOOTER
--- NOTE | 2019-07-02 11:30 | PN.ORTHO_ITS ---
Subjective: Patient seen and examined at bedside. No complaints. Patient tolerating p.o.'s. No shortness of breath nausea vomiting diarrhea constipation or other issues. Neurovascularly intact. - Physical Exam Vitals/I&O's: Vital Signs Temp Pulse Resp BP Pulse Ox 98.6 F 74 18 143/66 H 95 07/02/19 08:25 07/02/19 08:25 07/02/19 08:25 07/02/19 08:25 07/02/19 08:25 Oxygen Flow Rate (L/min) 2 Oxygen Delivery Method Room Air Weight: 115 lb 8.356 oz Body Mass Index (BMI) 18.6 Intake and Output for Last 24 Hours 06/30/19 07/01/19 07/02/19 23:59 23:59 23:59 Intake Total 3012.50 / 3212.50 732.5 / 732.5 Output Total 100 / 150 875 / 1350 650 / 650 Balance -100 / -100 2137.50 / 1862.50 82.5 / 82.5 General: Alert, Oriented x3, Cooperative HEENT: Atraumatic, PERRLA, EOMI, Normocephalic Neck: Supple, No JVD, Negative Carotid Bruits Lungs: Clear to auscultation, Normal air movement Cardiovascular: Regular rate, No murmurs Abdomen: Bowel Sounds Present, Soft, Non Tender Extremities: No edema, Capillary Refill Less than 3 Seconds Skin: No rashes, No breakdown Musculoskeletal: No Tenderness to Palpation of Joints or Extremities, Tenderness - Incision site, no drainage, incision clean dry intact, active range of motion passive range of motion ankle intact, compartment soft sensation grossly intact, negative Homans Neurological: Cranial nerves II-XII grossly intact Psych/Mental Status: Normal Affect, Appropriate Laboratory Results 07/02/19 04:50: WBC 7.4, RBC 3.32 L, Hgb 9.9 L, Hct 29.0 L, MCV 87.3, MCH 29.8, MCHC 34.1, RDW Std Deviation 40.1, RDW Coeff of Fernando 12.4, Plt Count 179, MPV 8.8, Immature Gran % (Auto) 0.400, Neut % (Auto) 74.2 H, Lymph % (Auto) 17.8 L, Leslie % (Auto) 7.2, Eos % (Auto) 0.3, Baso % (Auto) 0.1, Absolute Neuts (auto) 5.5, Absolute Lymphs (auto) 1.31, Nucleated RBC % 0 07/02/19 04:50: Sodium 133 L, Potassium 4.1, Chloride 107, Carbon Dioxide 20.0 L , Anion Gap 6, BUN 14, Creatinine 0.66, Estim Creat Clear Calc 37.12, Est GFR (MDRD) Af Amer 111, Est GFR (MDRD) Non-Af 92, BUN/Creatinine Ratio 21.2 H, Glucose 104, Calcium 8.0 L Current Medications Acetaminophen (Tylenol) 650 mg PO Q6H PRN PRN PRN Reason: Pain Score 1-3/Temp > 100.7 F Last Admin: 07/01/19 20:55 Dose: 650 mg Documented by: Al Hydroxide/Mg Hydroxide (Mylanta Ii) 30 ml PO Q6H PRN PRN PRN Reason: Gastric Burning Albuterol Sulfate (Ventolin Aerosols) 2.5 mg INHALATION Q2H PRN PRN PRN Reason: Shortness of Breath/Wheezing Enoxaparin Sodium (Lovenox) 40 mg SC DAILY@0600 [facility] Last Admin: 07/02/19 04:51 Dose: 40 mg Documented by: Guaifenesin (Robitussin) 20 ml PO Q4H PRN PRN PRN Reason: COUGH Sodium Chloride () 1,000 mls @ 75 mls/hr IV .[id number] [facility] Last Infusion: 07/02/19 05:11 Dose: 75 mls/hr Documented by: Lisinopril (Zestril) 5 mg PO DAILY [facility] Last Admin: 07/02/19 08:24 Dose: 5 mg Documented by: Lorazepam (Ativan) 0.5 mg PO BID PRN PRN PRN Reason: ANXIETY Magnesium Hydroxide (Milk Of Magnesia) 30 ml PO DAILY PRN PRN PRN Reason: Constipation Melatonin (Melatonin) 3 mg PO QHS PRN PRN PRN Reason: INSOMNIA Morphine Sulfate () 4 mg IV Q3H PRN PRN PRN Reason: Pain Score 6-10/10 Last Admin: 07/01/19 10:08 Dose: 4 mg Documented by: Nicotine (Nicoderm Cq (Pbkc)) 21 mg TRANSDERM. DAILY [facility] Last Admin: 07/02/19 08:22 Dose: 21 mg Documented by: Nitroglycerin (Nitrostat) 0.4 mg SUBLINGUAL Q5M PRN PRN Reason: CARDIAC/CHEST PAIN Nutritional Formula (Lactose Free) (Ensure Enlive) 120 ml PO 4X/DAY [facility] Last Admin: 07/02/19 08:22 Dose: 120 ml Documented by: Ondansetron HCl (Zofran) 4 mg IV Q8H PRN PRN PRN Reason: NAUSEA/VOMITING Last Admin: 07/01/19 10:08 Dose: 4 mg Documented by: Oxycodone HCl (Oxyir) 10 mg PO Q4H PRN PRN PRN Reason: Pain Score 4-5/10 Sodium Chloride () 10 - 40 ml IV UD PRN PRN Reason: SALINE FLUSH Last Admin: 06/30/19 21:06 Dose: 10 ml Documented by: Medical Necessity - Tobacco Use Smoking Status: Current every day smoker Tobacco Use: Cigarettes Assessment/Plan All Active Problems (Last Reviewed 06/30/19 @ 12:59 by Chico Veliz MD) Educational circumstance (Resolved) Hip fracture, right (Acute) S/P partial hysterectomy (Resolved) Pneumonia (Resolved) Status post fall (Acute) Menopause (Resolved) Weight loss (Resolved) Fatigue (Resolved) Facial pain (Resolved) Nausea (Resolved) Chronic diarrhea (Resolved) Bronchitis (Resolved) Otitis media (Resolved) Hyponatremia (Resolved) Neoplasm (Resolved) SOB (shortness of breath) (Acute) pod1 right hip 3 cannulated screw fixation valgus impacted femoral neck fracture Patient discussed the patient her weightbearing status is predicated on whether or not she can weight-bear through her right upper extremity we are waiting phone call I discussed with nurse to call to see who performed her initial surgery this the for her breast mastectomy to get the phone number not even I can call him to determine whether or not her when she will be able to weight- bear through her right upper extremity that will dictate whether not when she can dictate ambulate to her lower extremity. When she is able to ambulate the right lower extremity she will be toe-touch weightbearing 30% Ancef Heparin Call with crease pain numbness tingling there is issues arise Follow-up in 2 weeks, staple removal at that time or if she is inpatient here at the hospital please call me and I will see the patient in the unit. Call with any concerns or questions This note was generated with [employer] dictation software. It may contain incorrect words, spelling, and punctuation that were not noted in checking the note before signing. [id number] dr rdz
[2019-07-02] MEDS: Acetaminophen 325 MG Tablet 650 MG PO (11:32)
[2019-07-02] MEDS: LORazepam 1 MG Tablet 0.5 MG PO (11:32)
--- NOTE | 2019-07-02 11:32 | RAD_ITS ---
STUDY: X-RAY - PELVIS AND RIGHT HIP REASON FOR EXAM: Follow-up right hip surgery 07/01/2019. TECHNIQUE: 3 views of the pelvis and hip. COMPARISON: Intraoperative images 07/01/2019. FINDINGS: There is vascular calcification. There are skin samson at the lateral aspect of the proximal right thigh and mild postoperative gas in the soft tissues. Normal bilateral iliac wings, sacroiliac joints and visualized sacrum. Normal bilateral superior and inferior pubic rami. Normal pubic symphysis. Normal bilateral ischial tuberosities. There are orthopedic screws transfixing a right femoral neck fracture in satisfactory alignment and position. Normal acetabulum. Normal hip joint. RAD/HIP, UNI W/ Pelvis 2-3 Views IMPRESSION: ORIF of right femoral neck fracture without interval change. Electronically Signed: Wes Fuentes MD at 15:48 EST Tel , Service support ,
[2019-07-02] MEDS: 0.9% Saline Lock 10 ML Syringe IV (13:04)
[2019-07-02 13:40] VITALS: BP 145/57; PULSE 83; RESP 18; TEMP 36.9; O2SAT 96
--- NOTE | 2019-07-02 14:54 | CHAPLAIN ---
Type of Pastoral Visit _x__ Initial Visit ___ Follow-up Visit ___ On-call Visit ___ General Patient Visit ___ Spiritual Assessment ___ Family Conference ___ Bereavement ___ Rapid Response ___ Code Blue ___ Other (describe below) Pastoral Care Referral From _x__ Patient _x__ Family ___ Nurse ___ Physician ___ Local Truck Driver ___ Chocolate Temperer ___ Other (describe below) Sacrament/Intervention _x__ Active listening ___ Anointing ___ Voodoo ___ Bereavement ___ Communion ___ Cheryle exploration ___ _x__ Life review _x__ Prayer ___ Reconciliation ___ Sacrament of Sick _x__ Supportive presence ___ Wedding ___ Other (describe below) Pastoral Comments
[2019-07-02 15:01] VITALS: PULSE 80
[2019-07-02] MEDS: Sodium Chloride 0.65% 1 SPRAY SPRAY.BTL 2 SPRAY NASAL (17:30)
[2019-07-02 19:45] VITALS: BP 157/68; PULSE 80; RESP 16; TEMP 36.8; O2SAT 96
[2019-07-02] MEDS: oxyCODONE 5 MG Tablet 10 MG PO (21:16)
[2019-07-03] VITALS (7 sets, daily range): BP systolic 137–165; BP diastolic 61–80; PULSE 80–96; RESP 16–20; TEMP 36.6–37.6; O2SAT 95–98
[2019-07-03] MEDS: Enoxaparin 40 MG/0.4 ML Syringe SC (06:19)
--- NOTE | 2019-07-03 07:37 | PN_ITS ---
Patient Problems: Active and Suspected Problems (Last Reviewed 06/30/19 @ 12:59 by Chico Veliz MD) Hip fracture, right (Acute) Reason for Visit: Follow-up hip fracture Subjective: Patient seen pain is tolerable. Awaiting insurance precertification prior to transfer to half-way facility Objective: GENERAL: cooperative HEENT: Atraumatic; EYES; Anicteric, Normal Conjunctiva NECK; supple, normal thyroid, RESPIRATORY: Diminished to auscultation CARDIOVASCULAR: Regular S1 S2, GI: soft, normoactive bowel sounds, : No Renal angle tenderness; EXTREMITIES: No edema, no clubbing, MUSCULOSKELETAL: Right hip tenderness NEURO: Awake; no lateralizing signs. SKIN: No Rash PSYCH; Flat affect Vitals/I&O's: Vital Signs Temp Pulse Resp BP Pulse Ox 99.7 F H 80 16 152/78 H 97 07/03/19 01:45 07/03/19 01:45 07/03/19 01:45 07/03/19 01:45 07/03/19 01:45 Oxygen Flow Rate (L/min) 2 Oxygen Delivery Method Room Air Weight: 52.4 kg Body Mass Index (BMI) 18.6 Intake and Output for Last 24 Hours 07/01/19 07/02/19 07/03/19 23:59 23:59 23:59 Intake Total 3012.50 / 3212.50 1750.0 / 1750.0 200 / 200 Output Total 875 / 1350 2900 / 3100 550 / 550 Balance 2137.50 / 1862.50 -1150.0 / -1350.0 -350 / -350 Current Medications Acetaminophen (Tylenol) 650 mg PO Q6H PRN PRN PRN Reason: Pain Score 1-3/Temp > 100.7 F Last Admin: 07/02/19 11:32 Dose: 650 mg Documented by: Al Hydroxide/Mg Hydroxide (Mylanta Ii) 30 ml PO Q6H PRN PRN PRN Reason: Gastric Burning Albuterol Sulfate (Ventolin Aerosols) 2.5 mg INHALATION Q2H PRN PRN PRN Reason: Shortness of Breath/Wheezing Enoxaparin Sodium (Lovenox) 40 mg SC DAILY@0600 [facility] Last Admin: 07/03/19 06:19 Dose: 40 mg Documented by: Guaifenesin (Robitussin) 20 ml PO Q4H PRN PRN PRN Reason: COUGH Lisinopril (Zestril) 5 mg PO DAILY [facility] Last Admin: 07/02/19 08:24 Dose: 5 mg Documented by: Lorazepam (Ativan) 0.5 mg PO BID PRN PRN PRN Reason: ANXIETY Last Admin: 07/02/19 11:32 Dose: 0.5 mg Documented by: Magnesium Hydroxide (Milk Of Magnesia) 30 ml PO DAILY PRN PRN PRN Reason: Constipation Melatonin (Melatonin) 3 mg PO QHS PRN PRN PRN Reason: INSOMNIA Morphine Sulfate () 4 mg IV Q3H PRN PRN PRN Reason: Pain Score 6-10/10 Last Admin: 07/01/19 10:08 Dose: 4 mg Documented by: Nicotine (Nicoderm Cq (Pbkc)) 21 mg TRANSDERM. DAILY [facility] Last Admin: 07/02/19 08:22 Dose: 21 mg Documented by: Nitroglycerin (Nitrostat) 0.4 mg SUBLINGUAL Q5M PRN PRN Reason: CARDIAC/CHEST PAIN Nutritional Formula (Lactose Free) (Ensure Enlive) 120 ml PO 4X/DAY [facility] Last Admin: 07/02/19 21:16 Dose: 120 ml Documented by: Ondansetron HCl (Zofran) 4 mg IV Q8H PRN PRN PRN Reason: NAUSEA/VOMITING Last Admin: 07/01/19 10:08 Dose: 4 mg Documented by: Oxycodone HCl (Oxyir) 10 mg PO Q4H PRN PRN PRN Reason: Pain Score 4-5/10 Last Admin: 07/02/19 21:16 Dose: 10 mg Documented by: Sodium Chloride () 10 - 40 ml IV UD PRN PRN Reason: SALINE FLUSH Last Admin: 07/02/19 13:04 Dose: 10 ml Documented by: Sodium Chloride ([place] Nasal [place]) 2 spray NASAL TID PRN PRN PRN Reason: NASAL DRYNESS Last Admin: 07/02/19 17:30 Dose: 2 sprays Documented by: Medical Necessity - Tobacco Use Smoking Status: Current every day smoker Tobacco Use: Cigarettes Assessment/Plan All Active Problems (Last Reviewed 06/30/19 @ 12:59 by Chico Veliz MD) Educational circumstance (Resolved) Hip fracture, right (Acute) S/P partial hysterectomy (Resolved) Pneumonia (Resolved) Status post fall (Acute) Menopause (Resolved) Weight loss (Resolved) Fatigue (Resolved) Facial pain (Resolved) Nausea (Resolved) Chronic diarrhea (Resolved) Bronchitis (Resolved) Otitis media (Resolved) Hyponatremia (Resolved) Neoplasm (Resolved) SOB (shortness of breath) (Acute) Patient is an 79-year-old lady who presented with right hip pain following a fall imaging studies demonstrated right femur neck subcapital fracture 1. Status post right femoral neck fracture ~ Patient has been admitted to the regular nursing floor immobilized, started on pain medication, consult placed to orthopedic surgery (Case was discussed with Dr. Herrera) for definitive management ~07/02/2019; Patient underwent right hip cannulated screw fixation on 07/01/[address] Nash. Seen this a.m. complains of some discomfort 07/03/2019.Patient seen pain is tolerable. Awaiting insurance precertification prior to transfer to half-way facility 2. Right breast cancer ~ Status post mastectomy at [facility] couple of weeks prior to patient admission patient had received neoadjuvant chemotherapy prior to surgery. She is scheduled to undergo radiation therapy ?07/02/2019 Case was discussed with Dr. Tal Adamson patient's oncologist regarding subsequent care once patient is medically stable. Patient informed of our discussion. 3. Hypertension ~ blood pressure controlled, home medications continued with dose adjustment as needed 4. Tobacco dependence ~counseled on cessation, offered nicotine patch for tobacco cravings 5. DVT prophylaxis ~ on enoxaparin 6. Anemia ~ secondary to acute blood loss anemia following surgery monitoring H&H no indication for blood transfusion at this point Code Visit Inpatient E&M: 55289 Subs Hosp L2
[2019-07-03] MEDS: oxyCODONE 5 MG Tablet 10 MG PO (09:29)
[2019-07-03] MEDS: Lisinopril 5 MG Tablet PO (10:43)
[2019-07-03] MEDS: LORazepam 1 MG Tablet 0.5 MG PO (12:48)
[2019-07-04] VITALS (7 sets, daily range): BP systolic 140–162; BP diastolic 71–86; PULSE 93–105; RESP 16–20; TEMP 36.6–37.3; O2SAT 93–97
[2019-07-04] MEDS: 0.9% Saline Lock 10 ML Syringe IV ×2 (05:32→15:33)
[2019-07-04] MEDS: Ondansetron 4 MG/2 ML Vial IV ×2 (05:33→15:33)
[2019-07-04] MEDS: Magnesium Hydroxide 30 ML UDC PO (05:33)
[2019-07-04] MEDS: Enoxaparin 40 MG/0.4 ML Syringe SC (05:39)
--- NOTE | 2019-07-04 07:57 | PN_ITS ---
Patient Problems: Active and Suspected Problems (Last Reviewed 06/30/19 @ 12:59 by Chico Veliz MD) Hip fracture, right (Acute) Reason for Visit: Follow-up right hip fracture Subjective: Patient seen had a relatively uneventful night. She did request for no further lab work to be drawn. Still awaiting for insurance precertification prior to [facility] Objective: GENERAL: cooperative HEENT: Atraumatic; EYES; Anicteric, Normal Conjunctiva NECK; supple, normal thyroid, RESPIRATORY: Diminished to auscultation CARDIOVASCULAR: Regular S1 S2, GI: soft, normoactive bowel sounds, : No Renal angle tenderness; EXTREMITIES: No edema, no clubbing, MUSCULOSKELETAL: Right hip tenderness NEURO: Awake; no lateralizing signs. SKIN: No Rash PSYCH; Flat affect Vitals/I&O's: Vital Signs Temp Pulse Resp BP Pulse Ox 99.2 F H 98 19 H 162/75 H 97 07/04/19 02:00 07/04/19 02:00 07/04/19 02:00 07/04/19 02:00 07/04/19 02:00 Oxygen Flow Rate (L/min) 2 Oxygen Delivery Method Room Air Weight: 52.4 kg Body Mass Index (BMI) 18.6 Intake and Output for Last 24 Hours 07/02/19 07/03/19 07/04/19 23:59 23:59 23:59 Intake Total 1750.0 / 1750.0 800 / 1040 440 / 440 Output Total 2900 / 3100 1050 / 1350 700 / 700 Balance -1150.0 / -1350.0 -250 / -310 -260 / -260 Current Medications Acetaminophen (Tylenol) 650 mg PO Q6H PRN PRN PRN Reason: Pain Score 1-3/Temp > 100.7 F Last Admin: 07/02/19 11:32 Dose: 650 mg Documented by: Al Hydroxide/Mg Hydroxide (Mylanta Ii) 30 ml PO Q6H PRN PRN PRN Reason: Gastric Burning Albuterol Sulfate (Ventolin Aerosols) 2.5 mg INHALATION Q2H PRN PRN PRN Reason: Shortness of Breath/Wheezing Enoxaparin Sodium (Lovenox) 40 mg SC DAILY@0600 [facility] Last Admin: 07/04/19 05:39 Dose: 40 mg Documented by: Guaifenesin (Robitussin) 20 ml PO Q4H PRN PRN PRN Reason: COUGH Lisinopril (Zestril) 5 mg PO DAILY [facility] Last Admin: 07/03/19 10:43 Dose: 5 mg Documented by: Lorazepam (Ativan) 0.5 mg PO BID PRN PRN PRN Reason: ANXIETY Last Admin: 07/03/19 12:48 Dose: 0.5 mg Documented by: Magnesium Hydroxide (Milk Of Magnesia) 30 ml PO DAILY PRN PRN PRN Reason: Constipation Last Admin: 07/04/19 05:33 Dose: 30 ml Documented by: Melatonin (Melatonin) 3 mg PO QHS PRN PRN PRN Reason: INSOMNIA Morphine Sulfate () 4 mg IV Q3H PRN PRN PRN Reason: Pain Score 6-10/10 Last Admin: 07/01/19 10:08 Dose: 4 mg Documented by: Nicotine (Nicoderm Cq (Pbkc)) 21 mg TRANSDERM. DAILY [facility] Last Admin: 07/03/19 10:43 Dose: 21 mg Documented by: Nitroglycerin (Nitrostat) 0.4 mg SUBLINGUAL Q5M PRN PRN Reason: CARDIAC/CHEST PAIN Nutritional Formula (Lactose Free) (Ensure Enlive) 120 ml PO 4X/DAY [facility] Last Admin: 07/03/19 22:07 Dose: 120 ml Documented by: Ondansetron HCl (Zofran) 4 mg IV Q8H PRN PRN PRN Reason: NAUSEA/VOMITING Last Admin: 07/04/19 05:33 Dose: 4 mg Documented by: Oxycodone HCl (Oxyir) 10 mg PO Q4H PRN PRN PRN Reason: Pain Score 4-5/10 Last Admin: 07/03/19 09:29 Dose: 10 mg Documented by: Sodium Chloride () 10 - 40 ml IV UD PRN PRN Reason: SALINE FLUSH Last Admin: 07/04/19 05:32 Dose: 10 ml Documented by: Sodium Chloride ([place] Nasal [place]) 2 spray NASAL TID PRN PRN PRN Reason: NASAL DRYNESS Last Admin: 07/02/19 17:30 Dose: 2 sprays Documented by: Medical Necessity - Tobacco Use Smoking Status: Current every day smoker Tobacco Use: Cigarettes Assessment/Plan All Active Problems (Last Reviewed 12/04/19 @ 12:59 by Chico Veliz MD) Educational circumstance (Resolved) Hip fracture, right (Acute) S/P partial hysterectomy (Resolved) Pneumonia (Resolved) Status post fall (Acute) Menopause (Resolved) Weight loss (Resolved) Fatigue (Resolved) Facial pain (Resolved) Nausea (Resolved) Chronic diarrhea (Resolved) Bronchitis (Resolved) Otitis media (Resolved) Hyponatremia (Resolved) Neoplasm (Resolved) SOB (shortness of breath) (Acute) Patient is an 79-year-old lady who presented with right hip pain following a fall imaging studies demonstrated right femur neck subcapital fracture 1. Status post right femoral neck fracture ~ Patient has been admitted to the regular nursing floor immobilized, started on pain medication, consult placed to orthopedic surgery (Case was discussed with Dr. Herrera) for definitive management ~07/02/2019; Patient underwent right hip cannulated screw fixation on 07/01/[address] Nash. Seen this a.m. complains of some discomfort 07/03/2019.Patient seen pain is tolerable. Awaiting insurance precertification prior to [facility] to [facility] 07/04/2019:Patient seen had a relatively uneventful night. She did request for no further lab work to be drawn. Still awaiting for insurance precertification prior to transfer to penitentiary facility 2. Right breast cancer ~ Status post mastectomy at [facility] couple of weeks prior to patient admission patient had received neoadjuvant chemotherapy prior to surgery. She is scheduled to undergo radiation therapy ?07/02/2019 Case was discussed with Dr. Tal Adamson patient's oncologist regarding subsequent care once patient is medically stable. Patient informed of our discussion. 3. Hypertension ~ blood pressure controlled, home medications continued with dose adjustment as needed 4. Tobacco dependence ~counseled on cessation, offered nicotine patch for tobacco cravings 5. DVT prophylaxis ~ on enoxaparin 6. Anemia ~ secondary to acute blood loss anemia following surgery monitoring H&H no indication for blood transfusion at this point Code Visit Inpatient E&M: 16076 Subs Hosp L2
[2019-07-04] MEDS: LORazepam 1 MG Tablet 0.5 MG PO (08:31)
[2019-07-04] MEDS: oxyCODONE 5 MG Tablet 10 MG PO ×2 (09:09→17:34)
[2019-07-04] MEDS: Lisinopril 5 MG Tablet PO (09:11)
[2019-07-05 03:48] VITALS: BP 153/78; PULSE 86; RESP 16; TEMP 36.9; O2SAT 96
[2019-07-05] MEDS: Polyethylene Glycol 3350 17 GM PACKET PO ×2 (03:49→09:28)
[2019-07-05] MEDS: Docusate Sodium 100 MG Capsule PO ×2 (03:49→09:29)
[2019-07-05] MEDS: Enoxaparin 40 MG/0.4 ML Syringe SC (06:09)
[2019-07-05 08:07] VITALS: BP 128/69; PULSE 90; RESP 16; TEMP 36.7; O2SAT 96
--- NOTE | 2019-07-05 09:24 | CASEMGMT ---
Addendum entered by Thao Fry 07/05/19 15:40: Discharge paperwork is complete. GENARO faxed completed discharge paperwork to [facility] including transfer to extended care facility, signed medication list and any scripts. Original in SNF folder and copy on pt's chart. GENARO completed [facility] last week, original in SNF folder and copy on pt's chart. Pt's DIL Pat is present in room at this time. Pt is able to discharge to SNF. Plan: [facility] today skilled with pt's family transporting via private vehicle Thao Fry MUTUEL DEPARTMENT MANAGER, [employer] Addendum entered by Thao Fry 07/05/19 14:12: RN updated this worker that pt's DIL Pat is now requesting to come to [facility] sooner than 4:00pm to transport pt. SW in to speak with pt. Pt currently on phone with Pat. 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 SW updated pt that this worker will relay the message to physician to complete discharge so Pat can come to [facility] as soon as she wants to to transport pt. Pt states understanding. Physician updated, states will complete discharge paperwork. Addendum entered by Thao Fry 07/05/19 13:26: Charge Nurse updated this worker that pt's DIL Pat will be at [facility] around 4:00pm. GENARO placed a call to Gifty at [facility] and left her a message that as soon as physician completes discharge paperwork this worker will fax them to SNF. GENARO also informed Gifty that pt's DIL Pat will be at [facility] around 4:00pm to transport pt. Addendum entered by Thao Fry 07/05/19 12:31: GENARO placed a call to Gifty at [facility] to get update on pre-cert. Gifty states pre-cert has been obtained and pt is able to discharge today to SNF. Physician and RN updated. Physician states pt plans on calling DIL to transport pt. Physician states he spoke with ortho physician who confirms pt is able to transport via private vehicle. Physician states pt's DIL will be later this afternoon and physician will complete discharge paperwork soon. GENARO updated RN. SW to fax discharge paperwork once completed. Pt's family to transport pt. Original Note: Social Work Note SW faxed updated clinicals to [facility]. Pt is medically ready once pre-cert is obtained. Plan: [facility] pending pre-cert Thao Fry MUTUEL DEPARTMENT MANAGER, [employer]RER
[2019-07-05] MEDS: Lisinopril 5 MG Tablet PO (09:29)
[2019-07-05] MEDS: oxyCODONE 5 MG Tablet 10 MG PO (12:23)
[2019-07-05] MEDS: LORazepam 1 MG Tablet 0.5 MG PO (12:25)
--- NOTE | 2019-07-05 15:20 | PCM.TXEXTCAR ---
- Diet 07/01/19 15:51 Diet: Regular Diet Is pt able to select menu?: No - Routine Orders/Code Status Code Status: Full Code - Wound(s) R breast Wound Type: Surgical Incision RIGHT HIP Wound Type: Surgical Incision - change dressing daily - Therapies Weight Bearing: Toe-touch weight bearing - 30 % right leg until seen by Orthopedics Physical Therapy: Eval and Treat Occupational Therapy: Eval and Treat - Problem/Diagnosis (1) Chronic anxiety Status: Chronic Current Visit: Yes (2) Hip fracture, right Status: Acute Current Visit: Yes (3) Primary cancer of right female breast Status: Chronic Current Visit: No (4) Tobacco dependency Status: Chronic Current Visit: No - Allergies/Procedures Done in Hospital Allergies/Adverse Reactions: Allergies Penicillins Allergy (Intermediate, Verified 06/30/19 10:40) Hives Procedures: - - stabilizing screws right hip - Type of Care/Length of Stay Estimated LOS: Convalescent Care Less Than 30 days Type of Care Needed: Skilled Rehab Potential: Good Prognosis: Good - Additional Orders/Day of Discharge Additional Orders: remove samson in two weeks H&P will serve as current which was dated: 06/30/19 Day of Discharge: 07/05/19 - Dietary and Speech Recommendations Dietitian Recommendations/Changes: Recommend advance diet to Regular Diet as medically able. Will provide Ensure Enlive 120ml 4xday once diet advances. - Follow Up Care Primary Care Physician: Dannielle Blanco PA [Primary Care Provider] - Please Follow Up With: Diamond Herrera DO When: in two weeks call for appointment-call Pat with appointment date
[2019-07-05 15:41] VITALS: BP 145/81; PULSE 95; RESP 16; TEMP 36.6; O2SAT 94
--- NOTE | 2019-07-08 08:46 | PCM.DC.SUM ---
Discharge Date and Diagnosis Date of Admission: 06/30/19 Date of Discharge: 07/05/19 - Primary Discharge Diagnosis #1 right femoral neck fracture secondary to osteoporosis #2 breast cancer newly diagnosed earlier this year #3 essential hypertension #4 anemia of blood loss secondary to expected blood loss from right femoral neck fracture - Secondary Discharge Diagnosis Chronic Problems (Last Reviewed 06/30/19 @ 12:59 by Chico Veliz MD) Chronic anxiety (Chronic) Primary cancer of right female breast (Chronic) Regional lymph node metastasis present (Chronic) Tobacco dependency (Chronic) Bruit of left carotid artery (Chronic) Chronic rhinitis (Chronic) Thyromegaly (Chronic) Multinodular goiter (Chronic) Mild anemia (Chronic) Cholelithiases (Chronic) History of skin cancer (Chronic) Hemangioma (Chronic) Lentigo (Chronic) Keratosis (Chronic) Tobacco abuse (Chronic) Lung nodule (Chronic) Breast mass in female (Chronic) Hospital Course and Treatment Operations: - - Insertion of percutaneous cannulated screws right hip 07/01/2019 Procedures: None Summary of Care Provided: The patient is a 79 year old F who was seen in the emergency room at [facility] after sustaining a fall at her home, she landed on her right side and was unable to bear weight following the fall. Work-up in the emergency room revealed her to have a nondisplaced valgus impacted femoral neck fracture on the right. Labs were unremarkable, patient was admitted to [place] [address], she was seen in consultation by orthopedic surgery and on 07/01/2019 underwent insertion of right hip cannulated screws to fixate the hip fracture. Patient did well postop and had no complications. On 07/05/2019, patient was seen and examined: On examination she appeared in good health and spirits. Vital signs as documented. Skin warm and dry and without overt rashes. Neck without JVD. Lungs clear. Heart exam notable for regular rhythm, normal sounds and absence of murmurs, rubs or gallops. Abdomen unremarkable and without evidence of organomegaly, masses, or abdominal aortic enlargement. Extremities nonedematous. Neuro: Cranial nerves II through XII are grossly intact, no focal motor deficits were noted, sensation to light touch and pinprick is intact. Psych: Patient is alert and oriented x3, she does not appear anxious or depressed On 07/05/2019, patient was seen and examined and felt to be in stable condition for discharge to an extended care facility for inpatient shelter services. I contacted the patient's surgeon who had performed a mastectomy on the patient several weeks before, the office called me back and told me the patient could use a walker without limitation. - Physical Exam Vitals/I&O's: Vital Signs Temp Pulse Resp BP Pulse Ox 97.9 F 95 16 145/81 H 94 07/05/19 15:41 07/05/19 15:41 07/05/19 15:41 07/05/19 15:41 07/05/19 15:41 Oxygen Flow Rate (L/min) 2 Oxygen Delivery Method Room Air Weight: 52.4 kg Body Mass Index (BMI) 18.6 Home Medications: Medications to take at Discharge lisinopril 10 mg tablet 5 mg PO DAILY 08/07/17 Vitamin B Complex 1 tab PO DAILY 06/30/19 Acetaminophen [Tylenol Tablet] 650 mg PO Q6H PRN PRN tab 07/05/19 Calcium Carbonate/Vitamin D3 [Os-Johnie 500+D3 Caplet] 1 ea PO BID #1 tab 07/05/19 Docusate Sodium [Colace] 100 mg PO BID cap 07/05/19 Enoxaparin [Lovenox] 40 mg SUBCUT DAILY@0600 syringe 07/05/19 Ensure Enlive 120 ml PO 4X/DAY liquid 07/05/19 Lorazepam [Ativan] 0.5 mg PO BID PRN PRN #14 tab 07/05/19 Nicotine [Nicoderm Cq] 21 mg TRANSDERM. DAILY patch 07/05/19 Ondansetron [Zofran] 4 mg PO Q8H PRN PRN vial 07/05/19 Oxycodone [Oxyir] 10 mg PO Q4H PRN PRN 7 Days #20 tab 07/05/19 Polyethylene Glycol 3350 [Miralax] 17 gm PO BID packet 07/05/19 Sodium Chloride 0.65% [[place] Nasal [place]] 2 spray NASAL TID PRN PRN spray.btl 07/05/19 Following Prescrptions Were Given to Patient: Lorazepam [Ativan] 0.5 mg PO BID PRN PRN #14 tab PRN Reason: Anxiety Prescription Printed Calcium Carbonate/Vitamin D3 [Os-Johnie 500+D3 Caplet] 1 ea PO BID #1 tab Oxycodone [Oxyir] 10 mg PO Q4H PRN PRN 7 Days #20 tab PRN Reason: Pain Score 4-5/10 Prescription Printed Primary Care Physician: Dannielle Blanco PA [Primary Care Provider] - Please Follow Up With: Diamond Herrera DO When: in two weeks call for appointment-call Pat with appointment date Disposition: Senior Care facility Minutes spent on discharge:: 33 Patient Condition:: Stable Medical Necessity - Tobacco Use Smoking Status: Current every day smoker Tobacco Use: Cigarettes Meaningful Use Info Meaningful Use Diagnoses (Choose all that apply): None applicable Code Visit Inpatient E&M: 92225 Disch Hosp
== END 2019-07-05 16:30 | disposition skilled nursing facility (03) | DRG 481 ==
LOC: ED 11:30 → MS3 13:02
PROVIDERS: Anesthesiology; Orthopaedic Surgery; Admitting Provider Internal Medicine; Emergency Provider Emergency Medicine; Family Provider Physician Assistant; PCP Physician Assistant; Referring Provider Internal Medicine; Visit Provider Internal Medicine
PROC: 0QS634Z Reposition Right Upper Femur with Internal Fixation Device, Percutaneous Approach (ICD-10-PCS; principal; 2019-07-01 11:30)
DX: S72.011A Unspecified intracapsular fracture of right femur, initial encounter for closed fracture (principal); D62 Acute posthemorrhagic anemia; Z68.1 Body mass index [BMI] 19.9 or less, adult; W08.XXXA Fall from other furniture, initial encounter; Y92.010 Kitchen of single-family (private) house as the place of occurrence of the external cause; F17.210 Nicotine dependence, cigarettes, uncomplicated; Z90.11 Acquired absence of right breast and nipple; C50.911 Malignant neoplasm of unspecified site of right female breast; I10 Essential (primary) hypertension; R63.6 Underweight
CPT/HCPCS: 36415; 71045; 73502; 76000; 80048; 80053; 81001; 83735; 84443; 85025; 85610; 86850; 86900; 86901; 88305; 88311; 93005; 97110; 97116; 97163; 97166; 97530; 97535; 97802; 99251; 99284; 99406; C1776; J7030; A4216; G0463; J2405

== ENCOUNTER → 2019-07-22 14:10 | Outpatient (CLI) | payer MEDICARE, SELFPAY ==
[2019-07-19 09:48] VITALS: BMI 18.1
--- NOTE | 2019-07-22 14:10 | RAD_ITS ---
STUDY: X-RAY - PELVIS AND RIGHT HIP REASON FOR EXAM: Female, 79 years old. POST OP TECHNIQUE: 3 views of the pelvis and hip. COMPARISON: July 02, 2019 FINDINGS: There is a non-specific bowel gas pattern. Normal visualized soft tissue structures. Normal bilateral iliac wings, sacroiliac joints and visualized sacrum. Normal bilateral superior and inferior pubic rami. Normal pubic symphysis. Normal bilateral ischial tuberosities. 3 cortical screws transfixing the right femur is stable since prior study. There is mild degenerative change of both hip joints. There is degenerative change in the lumbar spine. RAD/HIP, UNI W/ Pelvis 2-3 Views IMPRESSION: Status post open reduction internal fixation right hip. There is a persistent visualized subcapital femoral neck fracture. Degenerative change. Electronically Signed: Kaykay Beltran MD at 10:27 EST Tel , Service support ,
== END ==
PROVIDERS: Family Provider Physician Assistant; PCP Physician Assistant; Referring Provider Physician Assistant; Visit Provider Physician Assistant
DX: S72.001A Fracture of unspecified part of neck of right femur, initial encounter for closed fracture (principal)
CPT/HCPCS: 73502

== ENCOUNTER → 2019-08-12 13:42 | Outpatient (CLI) | payer MEDICARE, SELFPAY ==
[2019-07-22 14:17] VITALS: BMI 18.1
--- NOTE | 2019-08-12 13:43 | RAD_ITS ---
STUDY: X-RAY - PELVIS AND RIGHT HIP REASON FOR EXAM: Female, 79 years old. FOLLOW UP SURGERY VISIT TECHNIQUE: 3 views of the pelvis and hip. COMPARISON: Prior pelvis and hip radiographs of July 22, 2019 FINDINGS: There is a non-specific bowel gas pattern. Normal visualized soft tissue structures. There are multiple calcified phleboliths. The pelvic ring is intact. Stable degenerative changes of the sacroiliac joints. Normal bilateral superior and inferior pubic rami. Mild degenerative changes of the symphysis pubis. Normal bilateral ischial tuberosities. Status post right subcapital femoral fracture repair with 3 partially threaded femoral head and neck screws unchanged in alignment from prior exam. Normal acetabulum. There is mild articular joint space narrowing of the hip. RAD/HIP, UNI W/ Pelvis 2-3 Views IMPRESSION: Healing right subcapital femoral neck fracture with no change in bone or hardware alignment. Electronically Signed: Isabel Ureña MD at 17:15 EST , Service support ,
== END ==
PROVIDERS: PCP Physician Assistant; Referring Provider Physician Assistant; Visit Provider Physician Assistant
DX: S72.001A Fracture of unspecified part of neck of right femur, initial encounter for closed fracture (principal)
CPT/HCPCS: 73502

== ENCOUNTER 2019-11-11 18:40 | Emergency (ER) | payer MEDICARE, SELFPAY ==
[2019-08-12 14:06] VITALS: BMI 18.1
[2019-11-11 18:42] VITALS: BP 172/78; PULSE 102; RESP 17; TEMP 36.8; O2SAT 97; BMI 16.1
--- NOTE | 2019-11-11 19:32 | ED.DCSUM_ITS ---
History of Present Illness Chief Complaint: Lower Extremity Injury Informant: Patient Occurred: Days - 4 Mechanism/Context: Fall - tripped Context: Sudden Onset Timing: Continuous Quality of Pain: Aching Location: right hip/buttock Current Severity: Gone Maximum Severity: Severe Worsened by: WBing RLE, walking Relieved by: remaining still Associated Symptoms: Negative for: Parasthesia, Weakness, Loss of Funtion Narrative: Patient had a remote ORIF of the right hip due to a fall and fracture. She had a fall 4 days ago and has had difficulty walking on her right lower extremity since then, she fell to her buttock, she was complaining to her orthopedic doctor of the phone that she had pain in her right hip since the fall difficulty walking as a result. She was referred to the emergency department for further evaluation and radiography. - Past Medical History (1) Chronic anxiety Status: Chronic (2) Chronic rhinitis Status: Chronic (3) Lung nodule Status: Chronic (4) Mild anemia Status: Chronic (5) Multinodular goiter Status: Chronic (6) Primary cancer of right female breast Status: Chronic Past Medical History - Allergies and Home Meds Allergies/Adverse Reactions: Allergies Penicillins Allergy (Intermediate, Verified 11/11/19 18:42) [facility] Primary Care Physician: Dannielle Blanco PA [Primary Care Provider] - Lives: Alone Smoking Status: Current every day smoker Review of Systems General: Denies: Chills, Fever, Sweats Respiratory: Denies: Dyspnea, Cough, Dyspnea on exertion Gastrointestinal: Denies: Abdominal pain, Nausea, Vomiting, Diarrhea, Melena, Hematochezia Musculoskeletal: Reports: Extremity Pain. Denies: Neck pain, Back pain Skin: Reports: Rash - itchy redness right forearm. Denies: Abscess, Abrasions, Wounds Neurological: Denies: Headache, Weakness, Numbness Physical Exam Vital Signs/Narrative: Vital Signs Temp Pulse Resp BP Pulse Ox 11/11/19 18:42 98.2 F 102 H 17 172/78 H 97 Inital Vital Signs reviewed: Yes - Extremity Exam Right Pelvis: - - Tender to palpation in the right ischial tuberosity, focally. No crepitance or deformity. Stable pelvis, no other pelvic bone tenderness. Right Hip: - - Full range of motion, no tenderness at the greater trochanter, no pain in the groin or elsewhere with internal/external rotation.. Negative for: Limited ROM General: Well nourished, Well developed, - - nad Head: Normocephalic, Atraumatic Eyes: Perrl, EOMI ENT: No Trauma, Moist Mucous Membranes Neck: Nontender, Full ROM Back: Nontender. Negative for: CVA Tenderness - Right, CVA Tenderness - Left, Spinal Tenderness, Paraspinal Tenderness Skin: Normal color, No rash, No Trauma - Skin intact Neurological: Alert, Oriented x3, Cranial nerves II-XII grossly intact, Normal Strength, Normal Sensation Psychological: Normal affect, Normal Mood Diagnostic/Tx/Re-eval - Medical Decision Making On my interpretation, 3 view x-ray of the right hip and pelvis show a nondisplaced right inferior pubic ramus fracture. Since the patient is tender on her ischial tuberosity, and has full range of motion of the hip joint without any pain, this is consistent with her clinical exam. We discussed weightbearing as tolerated and pain control for treatment of this fracture. We also discussed safety at home and ADLs. She states she has an aide coming but not 24/7, and she does have a walker. We offered admission for placement/short-term rehab, she declines and states I will try it at home for now. We talked about analgesics, she declines narcotics since they have gave her significant constipation in the past, and she is doing okay with [id number]-[id number] medications and will try her walker for additional help. Message sent to orthopedics who agrees with this general plan. ED Disposition - Plan for ED Patient: Disposition: Home or Assisted Living Diagnosis: Closed fracture of right inferior pubic ramus Instructions: ED Fx Pelvis Referrals: Dannielle Blanco PA [Primary Care Provider] - Diamond Herrera DO [STAFF PHYSICIAN] - As Needed
--- NOTE | 2019-11-11 19:40 | RAD_ITS ---
STUDY: X-RAY - PELVIS AND RIGHT HIP REASON FOR EXAM: Female, 79 years old. Fall on Friday onto right hip. Continued pain. History of hip surgery in June. Patient currently receiving radiation therapy for breast cancer. TECHNIQUE: 3 views of the pelvis and hip. COMPARISON: The pelvis and right hip, August 12, 2019. FINDINGS: There is a non-specific bowel gas pattern. Normal visualized soft tissue structures. 4 Normal bilateral iliac wings, sacroiliac joints and visualized sacrum. Normal bilateral superior and inferior pubic rami. Normal pubic symphysis. Normal bilateral ischial tuberosities. Again seen a history of gamma nails transfixing femoral head and neck. There is no evidence of acute fracture or displacement. Normal acetabulum. There is mild articular joint space narrowing of the hip. RAD/HIP, UNI W/ Pelvis 2-3 Views IMPRESSION: Evidence of surgical fixation of a right femoral neck fracture. No acute fracture or dislocation. There is no major interval change. Electronically Signed: Jamie Espinosa DO at 19:57 EDT Tel [phone], Service support ,
[2019-11-11 20:50] VITALS: BP 164/71; PULSE 87; RESP 16; O2SAT 96
--- NOTE | 2019-11-15 11:25 | CM.ED ---
SOCIAL WORK RECEIVED CALL FROM PATIENT. PATIENT INQUIRING ABOUT [facility] PLACEMENT. PATIENT WAS SEEN IN THE EMERGENCY DEPARTMENT ON 11/11/19 AND IS THINKING MAY NEED [facility] PLACEMENT. PATIENT STATES HER INSURANCE IS IN NETWORK WITH [employer]. PATIENT IS STILL DECIDING IF SHE SHOULD GO TO [facility]. PATIENT OPEN TO THIS WORKER CONTACTING [facility] TO DISCUSS OPTIONS FOR PATIENT. CALL TO [employer], SPOKE WITH ANGELA. PER ANGELA, IS NOT TAKING ANYONE FROM HOME AND IS CURRENTLY NOT TAKING ANY ADMISSIONS. RETURNED CALL TO PATIENT AND UPDATED ON THE ABOVE. PATIENT STATES WILL DISCUSS WITH PRIMARY CARE PHYSICIAN, DR. LAWTON. PATIENT DOES HAVE PEOPLE ASSISTING HER IN HER HOME. PATIENT VOICES NO OTHER QUESTIONS AT THIS TIME. Leandra ALVES, TAB CUTTING MACHINE OPERATOR, SHOWROOM CONSULTANT.
== END 2019-11-11 20:52 | disposition home or self-care (01) ==
PROVIDERS: Emergency Provider Emergency Medicine; PCP Physician Assistant
DX: S32.591A Other specified fracture of right pubis, initial encounter for closed fracture (principal); F17.200 Nicotine dependence, unspecified, uncomplicated; W01.0XXA Fall on same level from slipping, tripping and stumbling without subsequent striking against object, initial encounter; Y93.89 Activity, other specified; Y92.009 Unspecified place in unspecified non-institutional (private) residence as the place of occurrence of the external cause; Y99.8 Other external cause status
CPT/HCPCS: 73502; 99282

== ENCOUNTER 2020-09-30 21:56 | Inpatient (IN) | payer MEDICARE, SELFPAY ==
[2020-09-30 21:57] VITALS: BP 150/81; PULSE 93; RESP 15; TEMP 36.4; O2SAT 97; BMI 15.5
--- NOTE | 2020-09-30 22:22 | RAD_ITS ---
HISTORY: fall EXAM: XR Chest 1 View: COMPARISON: June 30, 2019 FINDINGS: # of images incl. paperwork: 1 Right axillary surgical clips remain. Right hilar and mediastinal clips remain. Soft tissue within the region of the thyroid gland abuts displaces and narrows the trachea. This is unchanged. Lungs are hyperexpanded Calcific plaque within the aortic arch persists Lungs are clear. Heart is not enlarged. No acute osseous pathology perceived. Pulmonary vascularity is distinct. No effusions. RAD/Chest 1 View (Portable) IMPRESSION: Prominent soft tissue within the left side of the neck on the left side of the trachea abutting and displacing and narrowing the trachea likely related to thyromegaly. Right axillary and mediastinal clips. No acute cardiopulmonary disease.. at 2335 Reported and signed by: Ranjan Thornton MD Electronically Signed: Ranjan Thornton MD at 23:34 EST Tel , Service support ,
--- NOTE | 2020-09-30 22:22 | RAD_ITS ---
HISTORY: Fall. Injury. Exam is AP pelvis and 2 views of the left hip. Most recent comparison study is an AP pelvis and 2 views of the right hip from November 11, 2019. Findings: Fixation screws within the right femoral neck traversing an old, healed, right subcapital femoral neck fracture remain. Acute displaced left femoral neck fracture is present. The distal femoral neck and femur fracture fragments have migrated cranially by one half shaft width. Phleboliths are present. Atherosclerosis is present. Degenerative disc disease and scoliosis is present. Sacroiliac joints appear symmetric. RAD/HIP, UNI W/ Pelvis 2-3 Views IMPRESSION: Acute left femoral neck fracture with cranial migration of the distal fracture fragment by one half shaft width. at 2340 Reported and signed by: Ranjan Thornton MD Electronically Signed: Ranjan Thornton MD at 23:39 EST Tel , Service support ,
--- NOTE | 2020-09-30 22:23 | ED.DCSUM_ITS ---
History of Present Illness Chief Complaint: Fall Informant: Patient Occurred: Today Mechanism/Context: Same level fall Location: Left hip Quality of Pain: Aching Current Severity: Severe Maximum Severity: Severe Worsened by: Moving left lower extremity Relieved by: Nothing Associated Symptoms: Loss of function, Inability to ambulate. Negative for: Parasthesias, Weakness, Loss of consciousness, Amnesia Narrative: Patient states she was in her kitchen making coffee and she is not sure how she fell, but thinks it had something to do with her legs being weak and may be giving out, she denies any prodromal symptoms of any type and was feeling fine before this except for weakness in her legs for the past several weeks since she was discharged home from the hospital (not this one). She fell onto her left hip, she complains of pain there and inability to bear weight since then, she denies any other injury or hitting her head. She takes no anticoagulants. She remembers nothing about the fall. She states although she knows her legs have been weak lately, she lives at home by herself and she has not used anything to help her get around such as a cane, walker, etc. - Past Medical History (1) Chronic anxiety Status: Chronic (2) Chronic rhinitis Status: Chronic (3) Mild anemia Status: Chronic (4) Multinodular goiter Status: Chronic (5) Primary cancer of right female breast Status: Chronic Past Medical History - Allergies and Home Meds Allergies/Adverse Reactions: Allergies Penicillins Allergy (Intermediate, Verified 09/30/20 21:59) [facility] Doctors: [facility] Surgical History: - - Right hip ORIF Lives: Alone Smoking Status: Current every day smoker Review of Systems General: Denies: Chills, Fever, Sweats Eyes: Denies: Visual changes - bilaterally, Diplopia ENT: Denies: Rhinorrhea, Sore throat Cardiovascular: Denies: Chest pain, Palpitations Respiratory: Denies: Dyspnea, Cough, Dyspnea on exertion Gastrointestinal: Denies: Abdominal pain, Nausea, Vomiting, Diarrhea, Melena, Hematochezia Genitourinary: Denies: Dysuria, Hematuria, Frequency Musculoskeletal: Reports: Extremity Pain - Left hip only radiating down to her knee. Denies: Neck pain, Back pain, Swelling Skin: Denies: Rash, Wounds Neurological: Reports: Weakness - Both legs see HPI. Denies: Headache, Numbness Physical Exam Vital Signs/Narrative: Vital Signs Temp Pulse Resp BP Pulse Ox 09/30/20 21:57 97.5 F L 93 15 150/81 H 97 Inital Vital Signs reviewed: Yes General: Well nourished, Well developed, - - Thin no acute distress Head: Normocephalic, Atraumatic Eyes: Perrl, EOMI ENT: TM's clear, No hemotympanum or drainage, No trauma Neck: Nontender, Full ROM Cardiovascular: Regular rate, Regular rhythm, No murmurs. Negative for: Tachycardia Respiratory: No distress, CTA bilaterally, Chest nontender Abdomen: Soft, Nontender, Nondistended, Normal bowel sounds Back: Nontender. Negative for: Spinal Tenderness Extremeties: Tenderness left greater trochanter, left lower extremity in neutral position slightly externally rotated, shortened compared with the contralateral side. Limited range of motion left hip due to significant pain. Neurovascularly intact distally with 2+ dorsalis pedis pulse. No other bony tenderness or signs of injury. No other deformities. Other 3 extremities range fully without any pain or limitation. Skin: Normal color, No rash Neurological: Alert, Oriented x3, Cranial nerves II-XII grossly intact, Normal Strength, Normal Sensation Psychological: Normal affect, Normal Mood Diagnostic/Tx/Re-eval Laboratory Results 09/30/20 09/30/20 22:45 22:45 WBC 12.0 H RBC 4.66 Hgb 13.9 Hct 40.1 MCV 86.1 MCH 29.8 MCHC 34.7 RDW Std Deviation 42.8 RDW Coeff of Fernando 13.6 Plt Count 296 MPV 8.3 Immature Gran % (Auto) 0.700 Neut % (Auto) 87.7 H Lymph % (Auto) 7.3 L Robertson % (Auto) 3.8 Eos % (Auto) 0.3 Baso % (Auto) 0.2 Absolute Neuts (auto) 10.5 H Absolute Lymphs (auto) 0.88 Nucleated RBC % 0 Sodium 130 L Potassium 4.2 Chloride 99 Carbon Dioxide 24.0 Anion Gap 7 BUN 22 H Creatinine 0.96 Estim Creat Clear Calc 30.61 Est GFR (MDRD) Af Amer 71 Est GFR (MDRD) Non-Af 59 L BUN/Creatinine Ratio 22.8 H Glucose 142 H Calcium 8.9 - Rhythm Strip Rhythm Strip: Sinus Rhythm Rate: 93 Ectopy: None - EKG Initial EKG Interpretation: Sinus Rhythm, No Acute Injury Pattern Prior: Unchanged - Medical Decision Making On my interpretation, 1 view chest x-ray shows chronic hyperinflation but no acute abnormalities. On my interpretation, 3 view x-ray series of the left hip is consistent with a displaced transcervical femoral neck fracture of the left hip. Patient was given fentanyl after she asked for something other than morphine. This helped her pain significantly. She was given prophylactic Zofran. Her labs do not show anything specific or acute except for a mild leukocytosis which could be due to her injury and demargination. She states she had a low calcium before but it is WNL now. Discussed with Dr. Caldwell who is covering for her orthopedist Dr. Herrera, who will see the patient tomorrow, will admit to hospitalist. ED Disposition - Plan for ED Patient: Disposition: Acute Care Hospital [facility] Diagnosis: Closed left hip fracture
[2020-09-30] MEDS: Ondansetron 4 MG/2 ML Vial IV (22:54)
[2020-09-30 22:55] LABS: Absolute Lymphocyte Count 0.88 X10^3/uL (0.83-4.51); Absolute Neutrophil Count 10.5 X10^3/uL (2.0-7.7); Basophil# 0.02 X10^3/uL; Basophil% 0.2 % (0-1); Eosinophil# 0.03 X10^3/uL; Eosinophils% 0.3 % (0-5); Hematocrit 40.1 % (37-47); Hemoglobin 13.9 g/dL (12.0-15.0); Lymphocyte # 0.88 X10^3/ul (4.0); Lymphocyte % 7.3 % (19-41); Mean Corp Hgb Conc 34.7 g/dL (32-36); Mean Corpuscular Hgb 29.8 pg (27.0-32.0); Mean Corpuscular Volume 86.1 fL (81-99); Mean Platelet Vol. 8.3 fl (6.2-12.0); Monocyte# 0.45 X10^3/uL; Monocyte% 3.8 % (0-10); NRBC Flagged by Analyzer 0 % (0-5); Neutrophil # 10.53 X10^3/uL (2.7-7.7); Neutrophil % 87.7 % (47-70); Platelet Count 296 K/mm3 (150-450); RBC Distribution Width CV 13.6 % (11.6-14.6); RBC Distribution Width SD 42.8 fl (35.1-43.9); Red Blood Count 4.66 M/mm3 (4.2-5.4)
[2020-09-30] MEDS: fentaNYL 100 MCG/2 ML Ampul 50 MCG IV (22:55)
[2020-09-30 23:05] LABS: Anion Gap 7 (5-15); BUN 22 mg/dL (7-18); BUN/Creat Ratio 22.8 RATIO (10-20); Calcium,Total 8.9 mg/dL (8.5-10.1); Chloride 99 mmol/L (98-107); Creatinine, Serum 0.96 mg/dL (0.55-1.02); EST Glomerular Filtration Rate 59 mL/min (>60); Est Glom Filt Rate - Afr Amer 71 mL/min (>60); Estimated Creatinine Clearance 30.61 ml/min; Glucose 142 mg/dL (74-106); Potassium 4.2 mmol/L (3.5-5.1); Sodium Level 130 mmol/L (136-145)
--- NOTE | 2020-09-30 23:26 | EKG12_ITS ---
Test Reason : FALL Blood Pressure : / mmHG Vent. Rate : 085 BPM Atrial Rate : 085 BPM P-R Int : 172 ms QRS Dur : 074 ms QT Int : 396 ms P-R-T Axes : 083 053 085 degrees QTc Int : 471 ms Normal sinus rhythm Possible Left atrial enlargement Septal infarct , age undetermined Abnormal ECG Confirmed by GRACIELA OCHOA, FIDELINA ([id number]), copy editor EMILIO HUGO ([id number]) on 10/03/2020 12:21:36 PM Referred By: CAPRI Confirmed By:FIDELINA OWENS MD
[2020-09-30 23:41] VITALS: BP 178/87; PULSE 88; RESP 18; TEMP 36.1; O2SAT 92
--- NOTE | 2020-09-30 23:49 | ED.RN ---
Pt asked for ric to be called to let him know about being admitted.
--- NOTE | 2020-09-30 23:52 | PCM.HP.STD ---
Problem List (1) Educational circumstance Status: Inactive (2) Hip fracture, right Status: Resolved Qualifiers: Encounter type: initial encounter Fracture type: closed Qualified Code(s): S72.001A - Fracture of unspecified part of neck of right femur, initial encounter for closed fracture (3) Chronic anxiety Status: Chronic (4) Closed left hip fracture Status: Acute (5) Primary cancer of right female breast Status: Chronic (6) Regional lymph node metastasis present Status: Chronic (7) Tobacco dependency Status: Chronic (8) S/P partial hysterectomy Status: Resolved (9) Pneumonia Status: Resolved (10) Status post fall Status: Acute (11) Menopause Status: Resolved (12) Weight loss Status: Resolved (13) Fatigue Status: Resolved (14) Facial pain Status: Resolved (15) Nausea Status: Resolved (16) Bruit of left carotid artery Status: Chronic (17) Chronic diarrhea Status: Resolved (18) Bronchitis Status: Resolved (19) Chronic rhinitis Status: Chronic (20) Otitis media Status: Resolved (21) Hyponatremia Status: Resolved (22) Thyromegaly Status: Chronic (23) Multinodular goiter Status: Chronic (24) Mild anemia Status: Chronic (25) Cholelithiases Status: Chronic (26) Neoplasm Status: Resolved (27) History of skin cancer Status: Chronic (28) Hemangioma Status: Chronic (29) Lentigo Status: Chronic (30) Keratosis Status: Chronic (31) Tobacco abuse Status: Chronic (32) Lung nodule Status: Chronic (33) Breast mass in female Status: Chronic (34) SOB (shortness of breath) Status: Inactive (35) Severe protein-calorie malnutrition Status: Chronic History of Present Illness Date of Admission: 09/30/20 Chief Complaint: Fall with left hip pain The patient is a 80 year old F with a significant history of right breast cancer status post mastectomy, chemotherapy and radiation; and tobacco abuse who presents emergency department with a fall and left hip pain. Recently she was at a hospital at [place] with the flu. She has not completely recuperated from her recent illness and has weakness. She attributes her fall to the weakness. She turned at the kitchen and fell. After the fall she had excruciating pain at the left hip. The pain improves with not moving her left lower extremity and it worsens with moving her lower extremity X-ray at emergency department showed left hip fracture. Past Medical History Past Medical History (Chronic Problems): Chronic Problems (Last Reviewed 10/01/20 @ 02:[address] Ilia Pan MD) Chronic anxiety (Chronic) Severe protein-calorie malnutrition (Chronic) Primary cancer of right female breast (Chronic) Regional lymph node metastasis present (Chronic) Tobacco dependency (Chronic) Bruit of left carotid artery (Chronic) Chronic rhinitis (Chronic) Thyromegaly (Chronic) Multinodular goiter (Chronic) Mild anemia (Chronic) Cholelithiases (Chronic) History of skin cancer (Chronic) Hemangioma (Chronic) Lentigo (Chronic) Keratosis (Chronic) Tobacco abuse (Chronic) Lung nodule (Chronic) Breast mass in female (Chronic) Medical History: Medical History (Last Reviewed 10/01/20 @ 02:[address] Ilia Pan MD) Primary cancer of right female breast (Chronic) C50.911 Regional lymph node metastasis present (Chronic) C77.9 Pneumonia (Resolved) J18.9 Status post fall (Acute) Z91.81 Menopause (Resolved) Z78.0 Weight loss (Resolved) R63.4 Fatigue (Resolved) R53.83 Facial pain (Resolved) R51 Nausea (Resolved) R11.0 Bruit of left carotid artery (Chronic) R09.89 Chronic diarrhea (Resolved) K52.9 Bronchitis (Resolved) J40 Chronic rhinitis (Chronic) J31.0 Otitis media (Resolved) H66.90 Hyponatremia (Resolved) E87.1 Thyromegaly (Chronic) E01.0 Multinodular goiter (Chronic) E04.2 Mild anemia (Chronic) D64.9 Cholelithiases (Chronic) K80.20 Neoplasm (Resolved) D49.9 History of skin cancer (Chronic) Z85.828 Hemangioma (Chronic) D18.00 Lentigo (Chronic) L81.4 Keratosis (Chronic) L57.0 Tobacco abuse (Chronic) Z72.0 Lung nodule (Chronic) R91.1 Breast mass in female (Chronic) N63.0 SOB (shortness of breath) (Acute) R06.02 Breast cancer, right Onset Date: ~10/2017 C50.911 Allergies Penicillins Allergy (Intermediate, Verified 09/30/20 21:59) Hives Home Medications: Ambulatory Orders Medication Instructions Recorded lisinopril 10 mg tablet 2.5 mg PO DAILY 08/07/17 Vitamin B Complex 1 tab PO DAILY 06/30/19 Acetaminophen [Tylenol Tablet] 650 mg PO Q6H PRN PRN tab 07/05/19 Calcium Carbonate/Vitamin D3 1 ea PO BID #1 tab 07/05/19 [Os-[place] 500+D3 Caplet] Lorazepam [Ativan] 0.5 mg PO BID PRN PRN #14 tab 07/05/19 Nicotine [Nicoderm Cq] 21 mg TRANSDERM. DAILY patch 07/05/19 Sodium Chloride 0.65% [[place] Nasal 2 spray NASAL TID PRN PRN 07/05/19 [place]] spray.btl Ascorbic Acid [Vitamin C] 1,000 mg PO DAILY 09/30/20 Polyethylene Glycol 3350 [Miralax] 17 gm PO DAILY PRN 09/30/20 Ensure Enlive 120 mg PO DAILY 10/01/20 Surgical History: Surgical History (Last Reviewed 10/01/20 @ 00:[address] 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 Ilia Pan MD) Brother Arthritis Mother Heart disease Review of Systems Constitutional: Denies: Chills, Fever, Weight Change HEENT: Denies: Head Aches, Sinus Congestion, Sinus Drainage Cardiovascular: Denies: Chest Pain, Palpitations Respiratory: Reports: Shortness of Breath - Report secondary to recent flu.. Denies: Cough, Shortness of breath at rest, Sputum production Gastrointestinal: Denies: Abdominal Pain, Nausea, Vomiting Genitourinary: Denies: Dysuria Musculoskeletal: Reports: Joint Pain - Left hip, Joint Tenderness - Left hip Skin: Denies: Rash, Wounds Neurological: Denies: Numbness, Tingling, Focal weakness Psychiatric: Denies: Anxiety, Depression, Homicidal Ideations, Suicidal Ideations Hematologic/ Lymphatic: Denies: Easy Bruising, Easy Bleeding VTE Information - Inpt Only VTE Present on Admission: No VTE Mechan Device Prophylaxis: SCD's VTE Pharm Prophylaxis ordered?: No Patient Problems: Active and Suspected Problems (Last Reviewed 10/01/20 @ 02:[address] Ilia Pan MD) Closed left hip fracture (Acute) Status post fall (Acute) - Physical Exam Vitals/I&O's: Vital Signs Temp Pulse Resp BP Pulse Ox 97 F L 88 18 178/87 H 92 09/30/20 23:41 09/30/20 23:41 09/30/20 23:41 09/30/20 23:41 09/30/20 23:41 Oxygen Delivery Method Room Air Weight: 42.184 kg Body Mass Index (BMI) 15.5 General: Alert, Oriented x3, Cooperative HEENT: Atraumatic, PERRLA, EOMI, Normocephalic Neck: Supple, No JVD, Negative Carotid Bruits Lungs: Clear to auscultation, Normal air movement Cardiovascular: Regular rate, No murmurs Abdomen: Bowel Sounds Present, Soft, Non Tender Extremities: No edema, Capillary Refill Less than 3 Seconds Skin: No rashes, No breakdown Musculoskeletal: Cachexia, Tenderness - Left hip. Internally rotated left hip Neurological: Cranial nerves II-XII grossly intact Psych/Mental Status: Normal Affect, Appropriate Laboratory Results 09/30/20 22:45: WBC 12.0 H, RBC 4.66, Hgb 13.9, Hct 40.1, MCV 86.1, MCH 29.8, MCHC 34.7, RDW Std Deviation 42.8, RDW Coeff of Fernando 13.6, Plt Count 296, MPV 8.3, Immature Gran % (Auto) 0.700, Neut % (Auto) 87.7 H, Lymph % (Auto) 7.3 L, [place] % (Auto) 3.8, Eos % (Auto) 0.3, Baso % (Auto) 0.2, Absolute Neuts (auto) 10.5 H, Absolute Lymphs (auto) 0.88, Nucleated RBC % 0 09/30/20 22:45: Sodium 130 L, Potassium 4.2, Chloride 99, Carbon Dioxide 24.0, Anion Gap 7, BUN 22 H, Creatinine 0.96, Estim Creat Clear Calc 30.61, Est GFR (MDRD) Af Amer 71, Est GFR (MDRD) Non-Af 59 L, BUN/Creatinine Ratio 22.8 H, Glucose 142 H, Calcium 8.9 Assessment/Plan All Active Problems (Last Reviewed 10/01/20 @ 02:[address] Ilia Pan MD) Hip fracture, right (Resolved) Closed left hip fracture (Acute) S/P partial hysterectomy (Resolved) Pneumonia (Resolved) Status post fall (Acute) Menopause (Resolved) Weight loss (Resolved) Fatigue (Resolved) Facial pain (Resolved) Nausea (Resolved) Chronic diarrhea (Resolved) Bronchitis (Resolved) Otitis media (Resolved) Hyponatremia (Resolved) Neoplasm (Resolved) The patient is a 80 year old F with a significant history of right breast cancer status post mastectomy, chemotherapy and radiation; and tobacco abuse who presents emergency department with a fall and left hip pain was found to have radiographic evidence of left hip fracture. Fall with acute left hip fracture Radiologist impression of hip/pelvis x-ray. Acute left femoral neck fracture with cranial migration of the distal fracture fragment by one half shaft width. Pain control with IV fentanyl. Patient reported that in the past when she had had a right hip replaced she was given morphine and got very sick from it. Bowel protocol and antiemetics in place. No weightbearing on left lower extremity. We will keep patient n.p.o. and start on gentle IV hydration. Previous hip replacement was done by Dr. Herrera. The doctor discussed the case with Dr. Flores who was on-call for Dr. Herrera's group. ACS NSQIP surgical risk calculator showed below average risk of cardiopulmonary complications. Severe protein calorie malnutrition BMI of 15.5 kg/m? On protein shakes at home. We will keep n.p.o. for procedure at this time. After n.p.o. status consider resuming protein shakes. Hypertension Blood pressure is not within goal Lisinopril continued. As needed hydralazine ordered. Trend blood pressure and adjust blood pressure medications. Tobacco abuse Nicotine patch continued DVT prophylaxis SCD ordered. No chemical prophylaxis since patient is a surgical candidate. Inpatient E&M: 31396 Init Hosp L3
[2020-09-30] MEDS: fentaNYL 100 MCG/2 ML Ampul 25 MCG IV (23:56)
[2020-10-01] VITALS (22 sets, daily range): BP systolic 98–176; BP diastolic 50–114; PULSE 86–124; RESP 16–20; TEMP 35.6–37.1; O2SAT 92–98; BMI 15.4
[2020-10-01 00:42] LABS: Mucous, Urine 0 SEEN /hpf (<or=2+)
[2020-10-01 00:57] LABS: Color, Urine Yellow (Yellow); Glucose, Dipstick Normal (Normal); Ketone-Dipstick 5 mg/dl (Negative); Leukocyte Esterase-Dipstick 500 /ul (Negative); Nitrite-Dipstick Positive (Negative); Occult Blood-Urine 25 /ul (Negative); Protein-Dipstick 30 mg/dl (Negative); Specific Gravity, Urine 1.015 (1.002-1.030); Urine Bilirubin Dipstick Negative (Negative); Urine Clarity Cloudy (Clear); Urine Urobilinogen Normal (Normal)
[2020-10-01 01:23] LABS: Bacteria 4+ /hpf (None Seen); Red Blood Cells-Urine 5-10 SEEN /hpf (0-5); Squamous Epithelial Cells - UA 25-50 SEEN /hpf (5-10); White Blood Cells 50-100 SEEN /hpf (0-5)
[2020-10-01] MEDS: LORazepam 0.5 MG Tablet PO (01:44)
[2020-10-01] MEDS: Lactated Ringers 1,000 ML 50 ML IV ×2 (01:44→20:35)
[2020-10-01] MEDS: 0.9% Saline Lock 10 ML Syringe IV ×2 (01:44→01:52)
[2020-10-01] MEDS: MELATONIN 3 MG TABLET PO (01:44)
[2020-10-01] MEDS: Ondansetron 4 MG/2 ML Vial IV ×2 (01:52→14:13)
[2020-10-01 05:26] LABS: Absolute Lymphocyte Count 0.97 X10^3/uL (0.83-4.51); Absolute Neutrophil Count 8.6 X10^3/uL (2.0-7.7); Basophil# 0.01 X10^3/uL; Basophil% 0.1 % (0-1); Hematocrit 36.9 % (37-47); Hemoglobin 12.7 g/dL (12.0-15.0); Lymphocyte # 0.97 X10^3/ul (4.0); Lymphocyte % 9.6 % (19-41); Mean Corp Hgb Conc 34.4 g/dL (32-36); Mean Corpuscular Hgb 29.7 pg (27.0-32.0); Mean Corpuscular Volume 86.2 fL (81-99); Mean Platelet Vol. 8.1 fl (6.2-12.0); Monocyte# 0.41 X10^3/uL; Monocyte% 4.1 % (0-10); NRBC Flagged by Analyzer 0 % (0-5); Neutrophil # 8.63 X10^3/uL (2.7-7.7); Neutrophil % 85.8 % (47-70); Platelet Count 278 K/mm3 (150-450); RBC Distribution Width CV 13.4 % (11.6-14.6); RBC Distribution Width SD 42.5 fl (35.1-43.9); Red Blood Count 4.28 M/mm3 (4.2-5.4); White Blood Count 10.1 K/mm3 (4.4-11.0)
[2020-10-01 05:49] LABS: Prothrombin Time (Protime)PT. 12.6 SECONDS (11.7-14.9)
[2020-10-01 05:50] LABS: Partial Thromboplast Time 29.8 Seconds (24.1-36.2)
[2020-10-01 06:22] LABS: Anion Gap 7 (5-15); BUN 21 mg/dL (7-18); BUN/Creat Ratio 27.3 RATIO (10-20); Calcium,Total 8.6 mg/dL (8.5-10.1); Chloride 98 mmol/L (98-107); Creatinine, Serum 0.77 mg/dL (0.55-1.02); EST Glomerular Filtration Rate 76 mL/min (>60); Est Glom Filt Rate - Afr Amer 92 mL/min (>60); Estimated Creatinine Clearance 29.32 ml/min; Glucose 139 mg/dL (74-106); Potassium 4.1 mmol/L (3.5-5.1); Sodium Level 130 mmol/L (136-145); Thyroid Stim Hormone (TSH) 0.43 uIU/mL (0.358-3.74)
--- NOTE | 2020-10-01 07:35 | PN_ITS ---
Patient Problems: Active and Suspected Problems (Last Reviewed 10/01/20 @ 02:[address] Ilia Pan MD) Closed left hip fracture (Acute) Status post fall (Acute) Reason for Visit: Follow-up on acute hip fracture Subjective: Patient was seen in the immediate postop.. She is still groggy. No acute ev ents. Objective: Physical exam: General: Lethargic, Cooperative HEENT: Atraumatic, PERRLA, EOMI, Normocephalic Neck: Supple, No JVD, Negative Carotid Bruits Lungs: Clear to auscultation, Normal air movement Cardiovascular: Regular rate, No murmurs Abdomen: Bowel Sounds Present, Soft, Non Tender Extremities: No edema, Capillary Refill Less than 3 Seconds Skin: No rashes, No breakdown Musculoskeletal: Cachexia, Tenderness -left hip, dressing on, cold compresses to hip Neurological: Cranial nerves II-XII grossly intact Psych/Mental Status: Normal Affect, Appropriate Vitals/I&O's: Vital Signs Temp Pulse Resp BP Pulse Ox 98.0 F 86 18 143/70 H 95 10/01/20 04:09 10/01/20 04:20 10/01/20 04:09 10/01/20 04:09 10/01/20 04:09 Oxygen Delivery Method Room Air Weight: 42.1 kg Body Mass Index (BMI) 15.4 Intake and Output for Last 24 Hours 09/29/20 09/30/20 10/01/20 23:59 23:59 23:59 Output Total 300 / 300 Balance -300 / -300 Microbiology Past 72 Hours 10/01/20 02:30 Mucosa - Nose SARS-CoV-2 Antigen (Rapid) - Final Laboratory Results 09/30/20 22:45: WBC 12.0 H, RBC 4.66, Hgb 13.9, Hct 40.1, MCV 86.1, MCH 29.8, MCHC 34.7, RDW Std Deviation 42.8, RDW Coeff of Fernando 13.6, Plt Count 296, MPV 8.3 , Immature Gran % (Auto) 0.700, Neut % (Auto) 87.7 H, Lymph % (Auto) 7.3 L, [place] % (Auto) 3.8, Eos % (Auto) 0.3, Baso % (Auto) 0.2, Absolute Neuts (auto) 10.5 H, Absolute Lymphs (auto) 0.88, Nucleated RBC % 0 09/30/20 22:45: Sodium 130 L, Potassium 4.2, Chloride 99, Carbon Dioxide 24.0, Anion Gap 7, BUN 22 H, Creatinine 0.96, Estim Creat Clear Calc 30.61, Est GFR (MDRD) Af Amer 71, Est GFR (MDRD) Non-Af 59 L, BUN/Creatinine Ratio 22.8 H, Glucose 142 H, Calcium 8.9 10/01/20 00:35: Urine Color Yellow, Urine Clarity Cloudy, Urine pH 7.0, Ur Specific [place] 1.015, Urine Protein 30 H, Urine Glucose (UA) Normal, Urine Ketones 5 H, Urine Occult Blood 25 H, Urine Nitrite Positive H, Urine Bilirubin Negative, Urine Urobilinogen Normal, Ur Leukocyte Esterase 500 H, Urine RBC 5-10 SEEN, Urine WBC 50-100 SEEN, Ur Squamous Epith Cells 25-50 SEEN, Urine Bacteria 4+, Urine Mucus 0 SEEN 10/01/20 05:11: WBC 10.1, RBC 4.28, Hgb 12.7, Hct 36.9 L, MCV 86.2, MCH 29.7, MCHC 34.4, RDW Std Deviation 42.5, RDW Coeff of Fernando 13.4, Plt Count 278, MPV 8.1, Immature Gran % (Auto) 0.400, Neut % (Auto) 85.8 H, Lymph % (Auto) 9.6 L, [place] % (Auto) 4.1, Eos % (Auto) 0.0, Baso % (Auto) 0.1, Absolute Neuts (auto) 8.6 H, Absolute Lymphs (auto) 0.97, Nucleated RBC % 0 10/01/20 05:11: PT 12.6, INR 1.0, APTT 29.8 10/01/20 05:11: Sodium 130 L, Potassium 4.1, Chloride 98, Carbon Dioxide 25.0, Anion Gap 7, BUN 21 H, Creatinine 0.77, Estim Creat Clear Calc 29.32, Est GFR (MDRD) Af Amer 92, Est GFR (MDRD) Non-Af 76, BUN/Creatinine Ratio 27.3 H, Glucose 139 H, Calcium 8.6, TSH 0.43 10/01/20 05:11: Blood Type O POSITIVE, Antibody Screen NEGATIVE 10/01/20 05:11: Vitamin D 25-Hydroxy Pending Current Medications Acetaminophen (Acetaminophen 325 Mg Tablet) 650 mg PO Q6H PRN PRN PRN Reason: Pain Score 1-10/Temp > 100.7 F Ascorbic Acid (Ascorbic Acid 500 Mg Tablet) 1,000 mg PO DAILY [facility] Calcium/Vitamin D (Calcium Carb/Vitamin D 1 Tablet Tablet) 1 tablet PO BID [facility] Fentanyl Citrate (Fentanyl 100 Mcg/2 Ml Ampul) 25 mcg IV Q2H PRN PRN PRN Reason: Pain 6-10 Hydralazine HCl (Hydralazine 20 Mg/Ml Vial) 5 mg IV Q4H PRN PRN PRN Reason: SBP > 160 OR DBP > 120 Lactated Ringer's () 1,000 mls @ 50 mls/hr IV .Q20H HARISH Last Admin: 10/01/20 01:44 Dose: 50 mls/hr Documented by: Vancomycin HCl (Vancomycin) 1,000 mg in 200 mls @ 200 mls/hr IV SEND TO OR W/PATIENT ONE Stop: 10/01/20 08:23 Lisinopril (Lisinopril 2.5 Mg Tablet) 2.5 mg PO DAILY [facility] Lorazepam (Lorazepam 0.5 Mg Tablet) 0.5 mg PO BID PRN PRN PRN Reason: ANXIETY Last Admin: 10/01/20 01:44 Dose: 0.5 mg Documented by: Melatonin (Melatonin 3 Mg Tablet) 3 mg PO QHS PRN PRN PRN Reason: INSOMNIA Last Admin: 10/01/20 01:44 Dose: 3 mg Documented by: Multivitamins (Vitamin B Comp W-C Capsule) 1 capsule PO DAILY [facility] Nicotine (Nicotine 21 Mg Patch) 21 mg TD DAILY [facility] Ondansetron HCl (Ondansetron 4 Mg/2 Ml Vial) 4 mg IV Q8H PRN PRN PRN Reason: NAUSEA/VOMITING Last Admin: 10/01/20 01:52 Dose: 4 mg Documented by: Senna/Docusate Sodium (Senna/Docusate Sodium 1 Tablet) 2 tablet PO DAILY PRN PRN PRN Reason: CONSTIPATION Sodium Chloride (Sodium Chloride 0.65% 1 [place].Btl) 2 spray NASAL TID PRN PRN PRN Reason: NASAL DRYNESS Sodium Chloride (0.9% Saline Lock 10 Ml Syringe) 10 - 40 ml IV UD PRN PRN Reason: SALINE FLUSH Last Admin: 10/01/20 01:52 Dose: 10 ml Documented by: STROKE Vital Signs/Narrative: Vital Signs Temp Pulse Resp BP Pulse Ox 10/01/20 04:20 86 10/01/20 04:09 98.0 F 87 18 143/70 H 95 Medical Necessity - Tobacco Use Smoking Status: Current every day smoker Tobacco Use: Cigarettes Assessment/Plan All Active Problems (Last Reviewed 10/01/20 @ 02:[address] Ilia Pan MD) Hip fracture, right (Resolved) Closed left hip fracture (Acute) S/P partial hysterectomy (Resolved) Pneumonia (Resolved) Status post fall (Acute) Menopause (Resolved) Weight loss (Resolved) Fatigue (Resolved) Facial pain (Resolved) Nausea (Resolved) Chronic diarrhea (Resolved) Bronchitis (Resolved) Otitis media (Resolved) Hyponatremia (Resolved) Neoplasm (Resolved) 1. POD #0, status post hip hemiarthroplasty, will continue with pain control and wound recommendation according to orthopedics Encourage use of incentive spirometer 2. Hypertension, controlled, continue lisinopril 3. Severe Protein calorie malnutrition, donor relations officer consulted 4. Nicotine dependence, on replacement 5. Anxiety/depression, continue on Ativan as needed 6. History of breast CA status post radical mastectomy Inpatient E&M: 43231 Subs Hosp L2
[2020-10-01] MEDS: Vancomycin IV 1,000 MG/200 ML BAG 200 MG IV (09:11)
--- NOTE | 2020-10-01 10:38 | RAD_ITS ---
STUDY: X-RAY - PELVIS AND LEFT HIP REASON FOR EXAM: Female, 80 years old. Post Op -- left hip TECHNIQUE: 2 views of the pelvis and hip. COMPARISON: 09/30/2020. FINDINGS: Since prior studies, patient has had placement of left hip arthroplasty with a grossly satisfactory appearance. Stable appearance of previously repaired right hip fracture. Normal visualized pelvis. IMPRESSION: Grossly satisfactory appearance of left hip arthroplasty. Electronically Signed: Perfecto Hall MD at 12:09 EST , Service support , RAD/Hip Min 2 Views (Portable)
--- NOTE | 2020-10-01 10:44 | CON.PCM_ITS ---
Reason for Consult Date of Consultation: 10/01/20 History of Present Illness: The patient is a 80 year old F unity ambulator with walker status post ground- level fall. History of right hip fracture with PERC pinning. Past Medical History Past Medical History (Chronic Problems): Chronic Problems (Last Reviewed 10/01/20 @ 02:[address] Ilia Pan MD) Chronic anxiety (Chronic) Severe protein-calorie malnutrition (Chronic) Primary cancer of right female breast (Chronic) Regional lymph node metastasis present (Chronic) Tobacco dependency (Chronic) Bruit of left carotid artery (Chronic) Chronic rhinitis (Chronic) Thyromegaly (Chronic) Multinodular goiter (Chronic) Mild anemia (Chronic) Cholelithiases (Chronic) History of skin cancer (Chronic) Hemangioma (Chronic) Lentigo (Chronic) Keratosis (Chronic) Tobacco abuse (Chronic) Lung nodule (Chronic) Breast mass in female (Chronic) Medical History: Medical History (Last Reviewed 10/01/20 @ 02:[address] Ilia Pan MD) Primary cancer of right female breast (Chronic) C50.911 Regional lymph node metastasis present (Chronic) C77.9 Pneumonia (Resolved) J18.9 Status post fall (Acute) Z91.81 Menopause (Resolved) Z78.0 Weight loss (Resolved) R63.4 Fatigue (Resolved) R53.83 Facial pain (Resolved) R51 Nausea (Resolved) R11.0 Bruit of left carotid artery (Chronic) R09.89 Chronic diarrhea (Resolved) K52.9 Bronchitis (Resolved) J40 Chronic rhinitis (Chronic) J31.0 Otitis media (Resolved) H66.90 Hyponatremia (Resolved) E87.1 Thyromegaly (Chronic) E01.0 Multinodular goiter (Chronic) E04.2 Mild anemia (Chronic) D64.9 Cholelithiases (Chronic) K80.20 Neoplasm (Resolved) D49.9 History of skin cancer (Chronic) Z85.828 Hemangioma (Chronic) D18.00 Lentigo (Chronic) L81.4 Keratosis (Chronic) L57.0 Tobacco abuse (Chronic) Z72.0 Lung nodule (Chronic) R91.1 Breast mass in female (Chronic) N63.0 SOB (shortness of breath) (Inactive) R06.02 Breast cancer, right Onset Date: ~10/2017 C50.911 Allergies Penicillins Allergy (Intermediate, Verified 09/30/20 21:59) Hives morphine Adverse Reaction (Verified 10/01/20 01:03) Vomiting Home Medications: Ambulatory Orders Medication Instructions Recorded lisinopril 10 mg tablet 2.5 mg PO DAILY 08/07/17 Vitamin B Complex 1 tab PO DAILY 06/30/19 Acetaminophen [Tylenol Tablet] 650 mg PO Q6H PRN PRN tab 07/05/19 Calcium Carbonate/Vitamin D3 1 ea PO BID #1 tab 07/05/19 [Os-Johnie 500+D3 Caplet] Lorazepam [Ativan] 0.5 mg PO BID PRN PRN #14 tab 07/05/19 Nicotine [Nicoderm Cq] 21 mg TRANSDERM. DAILY patch 07/05/19 Sodium Chloride 0.65% [[place]kinson Nasal 2 spray NASAL TID PRN PRN 07/05/19 [place]] spray.btl Ascorbic Acid [Vitamin C] 1,000 mg PO DAILY 09/30/20 Polyethylene Glycol 3350 [Miralax] 17 gm PO DAILY PRN 09/30/20 Ensure Enlive 120 mg PO DAILY 10/01/20 Surgical History: Surgical History (Last Reviewed 10/01/20 @ 00:[address] 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 Ilia Pan MD) Brother Arthritis Mother Heart disease Patient Problems: Active and Suspected Problems (Last Reviewed 10/01/20 @ 02:[address] Ilia Pan MD) Closed left hip fracture (Acute) Status post fall (Acute) - Physical Exam Vitals/I&O's: Vital Signs Temp Pulse Resp BP Pulse Ox 98.7 F 87 18 176/114 H 93 10/01/20 08:31 10/01/20 08:31 10/01/20 08:31 10/01/20 08:31 10/01/20 08:31 Oxygen Delivery Method Room Air Weight: 92 lb 13.034 oz Body Mass Index (BMI) 15.4 Intake and Output for Last 24 Hours 09/29/20 09/30/20 10/01/20 23:59 23:59 23:59 Output Total 300 / 300 Balance -300 / -300 General: Alert, Oriented x3, Cooperative, No apparent distress Extremities: - - No open wounds compartments soft able to extend toes and palpable pedal pulses Microbiology Past 72 Hours 10/01/20 02:30 Mucosa - Nose SARS-CoV-2 Antigen (Rapid) - Final Laboratory Results 09/30/20 22:45: WBC 12.0 H, RBC 4.66, Hgb 13.9, Hct 40.1, MCV 86.1, MCH 29.8, MCHC 34.7, RDW Std Deviation 42.8, RDW Coeff of Fernando 13.6, Plt Count 296, MPV 8.3, Immature Gran % (Auto) 0.700, Neut % (Auto) 87.7 H, Lymph % (Auto) 7.3 L, [place] % (Auto) 3.8, Eos % (Auto) 0.3, Baso % (Auto) 0.2, Absolute Neuts (auto) 10.5 H, Absolute Lymphs (auto) 0.88, Nucleated RBC % 0 09/30/20 22:45: Sodium 130 L, Potassium 4.2, Chloride 99, Carbon Dioxide 24.0, Anion Gap 7, BUN 22 H, Creatinine 0.96, Estim Creat Clear Calc 30.61, Est GFR (MDRD) Af Amer 71, Est GFR (MDRD) Non-Af 59 L, BUN/Creatinine Ratio 22.8 H, Glucose 142 H, Calcium 8.9 10/01/20 00:35: Urine Color Yellow, Urine Clarity Cloudy, Urine pH 7.0, Ur Specific [place] 1.015, Urine Protein 30 H, Urine Glucose (UA) Normal, Urine Ketones 5 H, Urine Occult Blood 25 H, Urine Nitrite Positive H, Urine Bilirubin Negative, Urine Urobilinogen Normal, Ur Leukocyte Esterase 500 H, Urine RBC 5-10 SEEN, Urine WBC 50-100 SEEN, Ur Squamous Epith Cells 25-50 SEEN, Urine Bacteria 4+, Urine Mucus 0 SEEN 10/01/20 05:11: WBC 10.1, RBC 4.28, Hgb 12.7, Hct 36.9 L, MCV 86.2, MCH 29.7, MCHC 34.4, RDW Std Deviation 42.5, RDW Coeff of Fernando 13.4, Plt Count 278, MPV 8.1, Immature Gran % (Auto) 0.400, Neut % (Auto) 85.8 H, Lymph % (Auto) 9.6 L, [place] % (Auto) 4.1, Eos % (Auto) 0.0, Baso % (Auto) 0.1, Absolute Neuts (auto) 8.6 H, Absolute Lymphs (auto) 0.97, Nucleated RBC % 0 10/01/20 05:11: PT 12.6, INR 1.0, APTT 29.8 10/01/20 05:11: Sodium 130 L, Potassium 4.1, Chloride 98, Carbon Dioxide 25.0, Anion Gap 7, BUN 21 H, Creatinine 0.77, Estim Creat Clear Calc 29.32, Est GFR (MDRD) Af Amer 92, Est GFR (MDRD) Non-Af 76, BUN/Creatinine Ratio 27.3 H, Glucose 139 H, Calcium 8.6, TSH 0.43 10/01/20 05:11: Blood Type O POSITIVE, Antibody Screen NEGATIVE 10/01/20 05:11: Vitamin D 25-Hydroxy Pending Current Medications Acetaminophen (Acetaminophen 325 Mg Tablet) 650 mg PO Q6H PRN PRN PRN Reason: Pain Score 1-10/Temp > 100.7 F Acetaminophen (Acetaminophen 500 Mg Tablet) 1,000 mg PO Q8 [facility] Ascorbic Acid (Ascorbic Acid 500 Mg Tablet) 1,000 mg PO DAILY [facility] Calcium/Vitamin D (Calcium Carb/Vitamin D 1 Tablet Tablet) 1 tablet PO BID [facility] Fentanyl Citrate (Fentanyl 100 Mcg/2 Ml Ampul) 25 mcg IV Q2H PRN PRN PRN Reason: Pain 6-10 Hydralazine HCl (Hydralazine 20 Mg/Ml Vial) 5 mg IV Q4H PRN PRN PRN Reason: SBP > 160 OR DBP > 120 Lactated Ringer's () 1,000 mls @ 50 mls/hr IV .Q20H [facility] Last Admin: 10/01/20 01:44 Dose: 50 mls/hr Documented by: Vancomycin HCl 1 mg/ Dextrose 250.02 mls @ 250 mls/hr IV RX TO DOSE ONE Stop: 10/01/20 11:35 Lisinopril (Lisinopril 2.5 Mg Tablet) 2.5 mg PO DAILY [facility] Lorazepam (Lorazepam 0.5 Mg Tablet) 0.5 mg PO BID PRN PRN PRN Reason: ANXIETY Last Admin: 10/01/20 01:44 Dose: 0.5 mg Documented by: Melatonin (Melatonin 3 Mg Tablet) 3 mg PO QHS PRN PRN PRN Reason: INSOMNIA Last Admin: 10/01/20 01:44 Dose: 3 mg Documented by: Multivitamins (Vitamin B Comp W-C Capsule) 1 capsule PO DAILY [facility] Nicotine (Nicotine 21 Mg Patch) 21 mg TD DAILY [facility] Ondansetron HCl (Ondansetron 4 Mg/2 Ml Vial) 4 mg IV Q8H PRN PRN PRN Reason: NAUSEA/VOMITING Last Admin: 10/01/20 01:52 Dose: 4 mg Documented by: Oxycodone HCl (Oxycodone 5 Mg Tablet) 5 - 10 mg PO Q4H PRN PRN PRN Reason: Pain Score 4-10 Senna/Docusate Sodium (Senna/Docusate Sodium 1 Tablet) 2 tablet PO DAILY PRN PRN PRN Reason: CONSTIPATION Sodium Chloride (Sodium Chloride 0.65% 1 [place].Btl) 2 spray NASAL TID PRN PRN PRN Reason: NASAL DRYNESS Sodium Chloride (0.9% Saline Lock 10 Ml Syringe) 10 - 40 ml IV UD PRN PRN Reason: SALINE FLUSH Last Admin: 10/01/20 01:52 Dose: 10 ml Documented by: Assessment/Plan All Active Problems (Last Reviewed 10/01/20 @ 02:[address] Ilia Pan MD) Hip fracture, right (Resolved) Closed left hip fracture (Acute) S/P partial hysterectomy (Resolved) Pneumonia (Resolved) Status post fall (Acute) Menopause (Resolved) Weight loss (Resolved) Fatigue (Resolved) Facial pain (Resolved) Nausea (Resolved) Chronic diarrhea (Resolved) Bronchitis (Resolved) Otitis media (Resolved) Hyponatremia (Resolved) Neoplasm (Resolved) Acute displaced left femoral neck fracture Plan for OR hemiarthroplasty
--- NOTE | 2020-10-01 10:47 | OP.PCM_ITS ---
Report of Operation Date of Procedure: 10/01/20 Description of Surgical Findings:: Preoperative diagnosis: Left hip femoral neck fracture displaced Postoperative diagnosis: Same+ nondisplaced greater trochanteric fracture incomplete Procedure: Left hip hemiarthroplasty Implants: [employer] Accolade II stem size 4 [132] degree neck angle -3 neck length 45 mm outer diameter bipolar head Anesthesia: [General l] EBL: [150] cc Condition: Stable to PACU Indication for procedure: This is a 80-year-old female status post ground-level fall sustaining displaced left femoral neck fracture. plans for definitive hemiarthroplasty were discussed including risks benefits and alternatives of the procedure were reviewed with the patient including risk of bleeding infection nerve artery tissue damage need for further surgery continue pain postoperative hip precaution restrictions leg length discrepancy and dislocation. Procedure: Patient was met in the preoperative holding area once again the operative extremity was identified by both patient and physician and was marked. Patient was met by anesthesia and brought to the operating room where anesthesia was started . The patient was then positioned in the lateral decubitus position on a well-padded pegboard with an axillary roll. All bony prominences were checked and padded. The patient was prepped and draped in the usual sterile fashion. A timeout was called to ensure the proper patient procedure and extremity were being contemplated. Anatomic landmarks were palpated and marked for a standard posterior lateral approach. A timeout was called to ensure the proper patient procedure and extremity were being contemplated. A 10 blade scalpel was used to make a posterior incision through the skin and subcutaneous tissue. In retractors were used and electrocautery was used to maintain meticulous hemostasis and dissect full-thickness flaps until the gluteal fascia was reached. The gluteal fascia was incised in line with the gluteal fibers. The bursal tissue was then freed from the underside and a Charnley retractor was placed. The fatpad was elevated off of the external rotators with electrocautery and the external rotators were dissected off of the greater trochanter including the piriformis and were tagged with #1 Ethibond for later repair. The joint capsule opened with posterior trapdoor technique. A femoral neck cutting guide was used to laina the neck with a Bovie and an oscillating saw was used to complete the femoral neck cut. the fracture was visualized and with the use of a corkscrew and a skid the femoral head was removed and sized. We then trialed with the matching sizes . Hohmann was placed around the lesser trochanter. A femoral elevator was used. As well as a pointed wide Hohmann around the lesser trochanter and a Hohmann to help retract the gluteus medius. A box chisel was used to remove excess lateral neck fo llowed by a canal finder and a lateralizing reamer. This was followed by sequential broaches. Attention was made of the version within the canal. Once the final broach was seated, it was noticed that there was a nondisplaced incomplete fracture extending into the greater trochanteric area it was followed laterally only extended about 2 cm. The broach was well fixed it was not felt that it was in a location that cerclage wiring would be beneficial, we then trialed and reduced the hip it was determined that a [132] degree neck angle with a -3 neck length was the appropriate size. We then checked stability with shuck testing as well as flexion and interminal rotation then proceeded with hip extension and checked leg lengths at the knees and heels. At this point trials were removed. The femoral stem was inserted. We re-trialed and then proceeded to impact the femoral head onto the Quinn taper. We then surgically reduce the hip check stability again and leg lengths and were satisfied. irricept rinse was allowed to sit for 1 minutes while everyone changed their gloves. Thorough irrigation was performed. Followed by closure of the external rotators with #2 FiberWire followed by closure of gluteal fascia with #1 Ethibond. 0 Vicryl fat stitches and 2-0 Vicryl subcutaneous stitches and samson in the skin. Dressing was applied in the form of silverlon dressing and an abduction pillow was placed. Patient tolerated the procedure well there was no intraoperative complications all counts were correct and the patient was brought back to the PACU in stable condition
--- NOTE | 2020-10-01 13:59 | CPS ---
Attempted to start SMI with pt but pt stated she did not feel well. SMI placed at bedside and initial start held at this time.
[2020-10-01] MEDS: Acetaminophen 500 MG Tablet 1000 MG PO ×2 (14:21→21:10)
[2020-10-01] MEDS: Calcium Carb/Vitamin D 1 TABLET Tablet PO (21:10)
--- NOTE | 2020-10-01 23:08 | EKG12_ITS ---
Test Reason : CP Blood Pressure : / mmHG Vent. Rate : 113 BPM Atrial Rate : 113 BPM P-R Int : 168 ms QRS Dur : 072 ms QT Int : 326 ms P-R-T Axes : 086 043 117 degrees QTc Int : 447 ms Sinus tachycardia with Premature supraventricular complexes Septal infarct , age undetermined Abnormal ECG When compared with ECG of 30-SEP-2020 23:35, MANUAL COMPARISON REQUIRED, DATA IS UNCONFIRMED Confirmed by GRACIELA OCHOA, FIDELINA ([id number]), film editor EMILIO HUGO ([id number]) on 10/03/2020 12:39:06 PM Referred By: MURPHY Confirmed By:FIDELINA OWENS MD
--- NOTE | 2020-10-01 23:11 | NURSING ---
Respiratory called for EKG.
[2020-10-02] VITALS (10 sets, daily range): BP systolic 141–179; BP diastolic 61–86; PULSE 93–116; RESP 14–20; TEMP 36.7–37.5; O2SAT 95–96; BMI 15.4
[2020-10-02 05:31] LABS: Hematocrit 31.2 % (37-47); Hemoglobin 10.5 g/dL (12.0-15.0); Mean Corp Hgb Conc 33.7 g/dL (32-36); Mean Corpuscular Hgb 29.2 pg (27.0-32.0); Mean Corpuscular Volume 86.7 fL (81-99); Mean Platelet Vol. 8.2 fl (6.2-12.0); Platelet Count 213 K/mm3 (150-450); RBC Distribution Width CV 13.6 % (11.6-14.6); RBC Distribution Width SD 43.8 fl (35.1-43.9); White Blood Count 7.7 K/mm3 (4.4-11.0)
[2020-10-02 05:46] LABS: Anion Gap 7 (5-15); BUN 21 mg/dL (7-18); BUN/Creat Ratio 33.6 RATIO (10-20); Calcium,Total 8.4 mg/dL (8.5-10.1); Chloride 99 mmol/L (98-107); Creatinine, Serum 0.62 mg/dL (0.55-1.02); EST Glomerular Filtration Rate 97 mL/min (>60); Est Glom Filt Rate - Afr Amer 118 mL/min (>60); Estimated Creatinine Clearance 29.32 ml/min; Glucose 113 mg/dL (74-106); Potassium 3.9 mmol/L (3.5-5.1); Sodium Level 131 mmol/L (136-145)
[2020-10-02] MEDS: Acetaminophen 500 MG Tablet 1000 MG PO ×3 (06:27→20:54)
[2020-10-02] MEDS: APIXABAN 2.5 MG TABLET PO ×2 (06:27→20:55)
[2020-10-02] MEDS: Ensure Clear 120 ML Liquid PO ×3 (07:48→20:54)
[2020-10-02] MEDS: Ondansetron 4 MG/2 ML Vial IV (07:51)
[2020-10-02] MEDS: hydrALAZINE 20 MG/ML Vial 5 MG IV (07:51)
--- NOTE | 2020-10-02 07:55 | PCM.PN.ORT ---
Patient Problems: Active and Suspected Problems (Last Reviewed 10/01/20 @ 02:[address] Ilia Pan MD) Closed left hip fracture (Acute) Status post fall (Acute) Subjective: Seen and examined this morning. Patient sleeping. Arousable and comfortable without pain. No complaints - Physical Exam Vitals/I&O's: Vital Signs Temp Pulse Resp BP Pulse Ox 98.8 F 106 H 18 179/86 H 95 10/02/20 07:40 10/02/20 07:51 10/02/20 07:40 10/02/20 07:40 10/02/20 07:40 Oxygen Delivery Method Room Air Weight: 92 lb 13.034 oz Body Mass Index (BMI) 15.4 Intake and Output for Last 24 Hours 09/30/20 10/01/20 10/02/20 23:59 23:59 23:59 Intake Total 1411.67 / 1411.67 100 / 100 Output Total 775 / 825 250 / 250 Balance 636.67 / 586.67 -150 / -150 General: Alert, Oriented x3, Cooperative, No apparent distress Extremities: - - Dressing on clean and dry. Compartments soft neurovascularly intact left lower extremity. Microbiology Past 72 Hours 10/01/20 02:30 Mucosa - Nose SARS-CoV-2 Antigen (Rapid) - Final Laboratory Results 10/02/20 05:06: WBC 7.7, RBC 3.60 L, Hgb 10.5 L, Hct 31.2 L, MCV 86.7, MCH 29.2, MCHC 33.7, RDW Std Deviation 43.8, RDW Coeff of Fernando 13.6, Plt Count 213, MPV 8.2 10/02/20 05:06: Sodium 131 L, Potassium 3.9, Chloride 99, Carbon Dioxide 25.0, Anion Gap 7, BUN 21 H, Creatinine 0.62, Estim Creat Clear Calc 29.32, Est GFR (MDRD) Af Amer 118, Est GFR (MDRD) Non-Af 97, BUN/Creatinine Ratio 33.6 H, Glucose 113 H, Calcium 8.4 L Current Medications Acetaminophen (Acetaminophen 325 Mg Tablet) 650 mg PO Q6H PRN PRN PRN Reason: Pain Score 1-10/Temp > 100.7 F Acetaminophen (Acetaminophen 500 Mg Tablet) 1,000 mg PO Q8 [facility] Last Admin: 10/02/20 06:27 Dose: 1,000 mg Documented by: Apixaban (Apixaban 2.5 Mg Tablet) 2.5 mg PO BID [facility] Last Admin: 10/02/20 06:27 Dose: 2.5 mg Documented by: Ascorbic Acid (Ascorbic Acid 500 Mg Tablet) 1,000 mg PO DAILY [facility] Last Admin: 10/02/20 07:47 Dose: 1,000 mg Documented by: Calcium/Vitamin D (Calcium Carb/Vitamin D 1 Tablet Tablet) 1 tablet PO BID [facility] Last Admin: 10/02/20 07:47 Dose: 1 tablet Documented by: Fentanyl Citrate (Fentanyl 100 Mcg/2 Ml Ampul) 25 mcg IV Q2H PRN PRN PRN Reason: Pain 6-10 Hydralazine HCl (Hydralazine 20 Mg/Ml Vial) 5 mg IV Q4H PRN PRN PRN Reason: SBP > 160 OR DBP > 120 Last Admin: 10/02/20 07:51 Dose: 5 mg Documented by: Lactated Ringer's () 1,000 mls @ 50 mls/hr IV .Q20H [facility] Last Infusion: 10/01/20 21:39 Dose: 50 mls/hr Documented by: Lisinopril (Lisinopril 2.5 Mg Tablet) 2.5 mg PO DAILY [facility] Last Admin: 10/02/20 07:47 Dose: 2.5 mg Documented by: Lorazepam (Lorazepam 0.5 Mg Tablet) 0.5 mg PO BID PRN PRN PRN Reason: ANXIETY Last Admin: 10/01/20 01:44 Dose: 0.5 mg Documented by: Melatonin (Melatonin 3 Mg Tablet) 3 mg PO QHS PRN PRN PRN Reason: INSOMNIA Last Admin: 10/01/20 01:44 Dose: 3 mg Documented by: Multivitamins (Vitamin B Comp W-C Capsule) 1 capsule PO DAILY [facility] Last Admin: 10/02/20 07:47 Dose: 1 capsule Documented by: Nicotine (Nicotine 21 Mg Patch) 21 mg TD DAILY [facility] Last Admin: 10/02/20 07:47 Dose: 21 mg Documented by: Nutritional Formula (Lactose Free) (Ensure Clear 120 Ml Liquid) 120 ml PO TIDCM [facility] Last Admin: 10/02/20 07:48 Dose: 120 ml Documented by: Ondansetron HCl (Ondansetron 4 Mg/2 Ml Vial) 4 mg IV Q8H PRN PRN PRN Reason: NAUSEA/VOMITING Last Admin: 10/02/20 07:51 Dose: 4 mg Documented by: Oxycodone HCl (Oxycodone 5 Mg Tablet) 2.5 mg PO Q4H PRN PRN PRN Reason: Pain Score 4-5 Senna/Docusate Sodium (Senna/Docusate Sodium 1 Tablet) 2 tablet PO DAILY PRN PRN PRN Reason: CONSTIPATION Sodium Chloride (Sodium Chloride 0.65% 1 [place].Btl) 2 spray NASAL TID PRN PRN PRN Reason: NASAL DRYNESS Sodium Chloride (0.9% Saline Lock 10 Ml Syringe) 10 - 40 ml IV UD PRN PRN Reason: SALINE FLUSH Last Admin: 10/01/20 01:52 Dose: 10 ml Documented by: Medical Necessity - Tobacco Use Smoking Status: Current every day smoker Tobacco Use: Cigarettes Assessment/Plan All Active Problems (Last Reviewed 10/01/20 @ 02:[address] Ilia Pan MD) Hip fracture, right (Resolved) Closed left hip fracture (Acute) S/P partial hysterectomy (Resolved) Pneumonia (Resolved) Status post fall (Acute) Menopause (Resolved) Weight loss (Resolved) Fatigue (Resolved) Facial pain (Resolved) Nausea (Resolved) Chronic diarrhea (Resolved) Bronchitis (Resolved) Otitis media (Resolved) Hyponatremia (Resolved) Neoplasm (Resolved) Postop day #1 left hip hemiarthroplasty. Nondisplaced fracture of greater trochanter will necessitate partial weightbearing left lower extremity 50% Dressing to be left on for 72 hours postop. No shower for 72 hours postop. Then may remove dressing prior to first shower may allow warm soapy water antibacterial over incision pat dry and apply ABD over incisional site to be changed daily with daily shower at that point. PT OT 50% weightbearing left lower extremity DVT prophylaxis SCDs SAVANNAH hose Eliquis 2.5 mg twice daily for 3 weeks postop Patient will likely require transitional care prior to returning home as she is independent. Follow-up in office 2 weeks postop for wound check, staple removal and repeat x-rays.
[2020-10-02 08:37] LABS: Vitamin D,25 Hydroxy 45.2 ng/mL
[2020-10-02] MEDS: Vitamin B Comp W-C Capsule 1 CAP PO (09:05)
[2020-10-02] MEDS: Ascorbic Acid 500 MG Tablet 1000 MG PO (09:05)
[2020-10-02] MEDS: Lisinopril 2.5 MG Tablet PO (09:05)
[2020-10-02] MEDS: Calcium Carb/Vitamin D 1 TABLET Tablet PO ×2 (09:05→20:55)
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
--- NOTE | 2020-10-02 11:30 | PCM.NTREPORT ---
Nutrition Therapy Report - History Current diet / nutrition support order:: Regular general w/ ensure clear at meals - Anthropometric Measurements Height:: 5 ft 5 in Weight:: 42.1 kg Body Mass Index (BMI):: 15.4 - Relevant Labs Relevant Labs:: WBC 12.0 K/mm3 (4.4-11.0) H 09/30/20 22:45 RBC 3.60 M/mm3 (4.2-5.4) L 10/02/20 05:06 Hgb 10.5 g/dL (12.0-15.0) L 10/02/20 05:06 Hct 31.2 % (37-47) L 10/02/20 05:06 Neut % (Auto) 85.8 % (47-70) H 10/01/20 05:11 Lymph % (Auto) 9.6 % (19-41) L 10/01/20 05:11 Absolute Neuts (auto) 8.6 X10^3/uL (2.0-7.7) H 10/01/20 05:11 Sodium 131 mmol/L (136-145) L 10/02/20 05:06 BUN 21 mg/dL (7-18) H 10/02/20 05:06 Est GFR (MDRD) Non-Af 59 mL/min (>60) L 09/30/20 22:45 BUN/Creatinine Ratio 33.6 RATIO (10-20) H 10/02/20 05:06 Glucose 113 mg/dL (74-106) H 10/02/20 05:06 Calcium 8.4 mg/dL (8.5-10.1) L 10/02/20 05:06 - Assessment Food / Nutrition-Related History:: Pt w/ poor overall - trying to drink ONS provided - pt thinks too much ONS w/ meal and medpass - wants only at medpass. UBW: 54.5 kg - states lost wt x past few months when she had the flu (22.8% wt loss - significant). [ End ] - Nutrition Diagnosis Problem / Etiology / Signs & Symptoms (PES):: Inadequate oral intake r/t physiological causes increasing nutrient needs d/t having the flu a few mo ago and yesterday surgery and feeling sick to my stomach aeb <50% meal intakes and 22.8% wt loss in past few months - has had fat/muscle loss indicating s/s of malnutrition Evidence of Malnutrition Exists:: Yes Severe PCM:: Acute Illness - Nutrition Intervention Nutrition Prescription:: [id number] leti/day (RMRx1.3+500). 50-60 gm pro/day (1.2 gm/kg). 1800 ml/day (1 ml/leti). [ End ] - Food / Nutrient Delivery Interventions Summary of nutrition intervention:: Will continue liberal regular diet d/t low BMI and s/s of malnutriton. Discontinued ensure clear w/ meals for increased nutrition if consumed and ordered ONS 4x/day w/ medpass. [ End ] Nutrition education provided?: No - MNT Monitoring Further MNT monitoring and evaluation required?: Yes MNT Follow-up in:: 3-5 days - please call RD/LD at [phone] if questions/concerns
[2020-10-02] MEDS: proCHLORPERazine 10 MG/2 ML Vial IV (13:43)
[2020-10-02] MEDS: 0.9% Saline Lock 10 ML Syringe IV (13:43)
--- NOTE | 2020-10-02 13:45 | CASEMGMT ---
Addendum entered by Thao Fry 10/02/20 15:32: SW received message from Gifty at [facility] stating they are able to accept pt and will submit for pre-cert. SW in to speak with pt. SW updated pt that [facility] is not in network with pt's insurance but [facility] is able to accept pt. Pt states understanding, agreeable to [facility]. Plan: [facility] pending pre-cert Original Note: Social Work Note SW back in to speak with pt to continue discussion of discharge plans. Pt states she will need SNF, states [facility] is only SNF that her insurance will pay for. SW reviewed SNF list with pt and educated pt on all SNF that accept pt's insurance. Pt states she lives in [facility] would like a SNF in [facility] so her family can visit her. Pt asked about [facility], SW informed pt that [facility] didn't show up on [facility]'s website, but that this worker can call [facility] to confirm if they accept pt's insurance or not. Pt gave this worker permission to call [facility] to check on insurance. Pt states if [facility] doesn't take her insurance then her next choice is [facility]. GENARO placed a call to Alexandra at [facility]. Alexandra states they are not in network with pt's insurance but can check out of network benefits. GENARO faxed referral. GENARO then received message from Alexandra stating pt would have a 50% copay if pt admits to [facility]. GENARO informed Alexandra to disregard referral then. GENARO placed a call to Onelia at [facility] and provided referral. SW faxed referral. Plan: SNF pending acceptance and pre-cert Thao Fry BI CONSULTANT, FIELD AUTO APPRAISER
--- NOTE | 2020-10-02 14:33 | CHAPLAIN ---
Type of Pastoral Visit _x__ Initial Visit ___ Follow-up Visit ___ On-call Visit ___ General Patient Visit ___ Spiritual Assessment ___ Family Conference ___ Bereavement ___ Rapid Response ___ Code Blue ___ Other (describe below) Pastoral Care Referral From _x__ Patient ___ Family ___ Nurse ___ Physician ___ Polygraph Technician ___ [place] In ___ Other (describe below) Sacrament/Intervention _x__ Active listening ___ Anointing ___ Jainism ___ Bereavement ___ Communion ___ Cheryle exploration ___ ___ Life review _x__ Prayer ___ Reconciliation ___ Sacrament of Sick _x__ Supportive presence ___ Wedding ___ Other (describe below) Pastoral Comments
[2020-10-02] MEDS: LORazepam 0.5 MG Tablet PO (15:32)
[2020-10-02] MEDS: 0.9% Normal Saline 1,000 ML 75 ML IV (18:08)
[2020-10-03 02:20] VITALS: BP 164/78; PULSE 98; RESP 16; TEMP 36.6; O2SAT 96
[2020-10-03 03:18] VITALS: BP 164/78; PULSE 98
[2020-10-03] MEDS: Metoprolol(XL)Succ 25 MG Tablet PO ×2 (03:18→10:33)
[2020-10-03] MEDS: Acetaminophen 500 MG Tablet 1000 MG PO ×3 (05:53→21:21)
[2020-10-03 05:56] LABS: Hematocrit 35.3 % (37-47); Mean Corpuscular Hgb 29.6 pg (27.0-32.0); Mean Corpuscular Volume 86.9 fL (81-99); Mean Platelet Vol. 8.8 fl (6.2-12.0); Platelet Count 196 K/mm3 (150-450); RBC Distribution Width CV 13.4 % (11.6-14.6); RBC Distribution Width SD 42.5 fl (35.1-43.9); Red Blood Count 4.06 M/mm3 (4.2-5.4); White Blood Count 10.3 K/mm3 (4.4-11.0)
[2020-10-03] MEDS: 0.9% Normal Saline 1,000 ML 75 ML IV (08:58)
[2020-10-03 09:48] VITALS: BP 154/66; PULSE 89; RESP 18; TEMP 36.6; O2SAT 98
--- NOTE | 2020-10-03 10:00 | CASEMGMT ---
Palliative screening tool completed at this time due to Lace/strata score of 3. Patient meets criteria at this time. Hospitalist notified and agreeable for referral. EDNA ROGERS sent referral to Palliative Care.
[2020-10-03 10:33] VITALS: PULSE 88
[2020-10-03] MEDS: Lisinopril 2.5 MG Tablet PO (10:33)
[2020-10-03] MEDS: APIXABAN 2.5 MG TABLET PO ×2 (10:33→21:21)
[2020-10-03] MEDS: Ensure Clear 120 ML Liquid PO ×4 (10:33→21:21)
[2020-10-03] MEDS: Ascorbic Acid 500 MG Tablet 1000 MG PO (10:33)
[2020-10-03] MEDS: Calcium Carb/Vitamin D 1 TABLET Tablet PO ×2 (10:33→21:21)
[2020-10-03] MEDS: Vitamin B Comp W-C Capsule 1 CAP PO (10:33)
--- NOTE | 2020-10-03 11:13 | PCM.PROGNOTE ---
Patient Problems: Active and Suspected Problems (Last Reviewed 10/01/20 @ 02:[address] Ilia Pan MD) Closed left hip fracture (Acute) Status post fall (Acute) Subjective: The date of this note should be 10/02/2020: Patient was seen and examined today this afternoon, her mucous membranes are dry and I have decided to place her back on some IV saline. I have also discontinued her IV fentanyl for pain-she has not been getting any but I think she is too frail for IV narcotics at the present time. Patient does not look uncomfortable to be in need for IV narcotics. Patient was given a list of nursing homes today by social insurance specialist-she would like to go to [facility]. Patient does not complain of any chest pain, chills, fever, or shortness of breath today. - Physical Exam Vitals/I&O's: Vital Signs Temp Pulse Resp BP Pulse Ox 97.8 F 88 18 154/66 H 98 10/03/20 09:48 10/03/20 10:33 10/03/20 09:48 10/03/20 09:48 10/03/20 09:48 Oxygen Delivery Method Room Air Weight: 42.1 kg Body Mass Index (BMI) 15.4 Intake and Output for Last 24 Hours 10/01/20 10/02/20 10/03/20 23:59 23:59 23:59 Intake Total 1411.67 / 1411.67 1435.83 / 1435.83 1240 / 1240 Output Total 775 / 825 500 / 900 900 / 900 Balance 636.67 / 586.67 935.83 / 535.83 340 / 340 General: Alert, Oriented x3, Cooperative, No apparent distress, Well developed HEENT: Atraumatic, PERRLA, EOMI, Normocephalic Oral: Dry Mucosa Neck: Supple, No JVD, Trachea Midline, Thyroid Normal Size and Texture Lungs: Clear to auscultation, Normal air movement, No rhonchi, No wheeze, No rales Cardiovascular: Regular rate, Regular Rhythm, Normal S1, Normal S2, No murmurs, PMI Normal, No rub noted, No Gallop Abdomen: Bowel Sounds Present, Soft, Non Tender, Non-Distended Extremities: No clubbing, No cyanosis, No edema, Capillary Refill Less than 3 Seconds Skin: No rashes, No breakdown Neurological: Cranial nerves II-XII grossly intact, Neuro grossly intact, Sensory exam intact to light touch and pain Psych/Mental Status: Normal Affect, Appropriate, Alert and oriented to time, place, person, mood and affect Microbiology Past 72 Hours 10/01/20 02:30 Mucosa - Nose SARS-CoV-2 Antigen (Rapid) - Final Laboratory Results 10/03/20 05:00: WBC 10.3, RBC 4.06 L, Hgb 12.0, Hct 35.3 L, MCV 86.9, MCH 29.6, MCHC 34.0, RDW Std Deviation 42.5, RDW Coeff of Fernando 13.4, Plt Count 196, MPV 8.8 Current Medications Acetaminophen (Acetaminophen 325 Mg Tablet) 650 mg PO Q6H PRN PRN PRN Reason: Pain Score 1-10/Temp > 100.7 F Acetaminophen (Acetaminophen 500 Mg Tablet) 1,000 mg PO Q8 [facility] Last Admin: 10/03/20 05:53 Dose: 1,000 mg Documented by: Apixaban (Apixaban 2.5 Mg Tablet) 2.5 mg PO BID [facility] Last Admin: 10/03/20 10:33 Dose: 2.5 mg Documented by: Ascorbic Acid (Ascorbic Acid 500 Mg Tablet) 1,000 mg PO DAILY [facility] Last Admin: 10/03/20 10:33 Dose: 1,000 mg Documented by: Calcium/Vitamin D (Calcium Carb/Vitamin D 1 Tablet Tablet) 1 tablet PO BID [facility] Last Admin: 10/03/20 10:33 Dose: 1 tablet Documented by: Sodium Chloride () 1,000 mls @ 75 mls/hr IV .[id number] [facility] Last Admin: 10/03/20 08:58 Dose: 75 mls/hr Documented by: Lisinopril (Lisinopril 2.5 Mg Tablet) 2.5 mg PO DAILY [facility] Last Admin: 10/03/20 10:33 Dose: 2.5 mg Documented by: Lorazepam (Lorazepam 0.5 Mg Tablet) 0.5 mg PO BID PRN PRN PRN Reason: ANXIETY Last Admin: 10/02/20 15:32 Dose: 0.5 mg Documented by: Melatonin (Melatonin 3 Mg Tablet) 3 mg PO QHS PRN PRN PRN Reason: INSOMNIA Last Admin: 10/01/20 01:44 Dose: 3 mg Documented by: Metoprolol Succinate (Metoprolol(Xl)Succ 25 Mg Tablet) 25 mg PO DAILY [facility] Last Admin: 10/03/20 10:33 Dose: 25 mg Documented by: Multivitamins (Vitamin B Comp W-C Capsule) 1 capsule PO DAILY [facility] Last Admin: 10/03/20 10:33 Dose: 1 capsule Documented by: Nicotine (Nicotine 21 Mg Patch) 21 mg TD DAILY [facility] Last Admin: 10/03/20 10:33 Dose: 21 mg Documented by: Nutritional Formula (Lactose Free) (Ensure Clear 120 Ml Liquid) 120 ml PO 4X/DAY [facility] Last Admin: 10/03/20 10:33 Dose: 120 ml Documented by: Ondansetron HCl (Ondansetron 4 Mg/2 Ml Vial) 4 mg IV Q8H PRN PRN PRN Reason: NAUSEA/VOMITING Last Admin: 10/02/20 07:51 Dose: 4 mg Documented by: Oxycodone HCl (Oxycodone 5 Mg Tablet) 2.5 mg PO Q4H PRN PRN PRN Reason: Pain Score 4-5 Prochlorperazine Edisylate (Prochlorperazine 10 Mg/2 Ml Vial) 10 mg IV Q6H PRN PRN PRN Reason: NAUSEA Last Admin: 10/02/20 13:43 Dose: 10 mg Documented by: Senna/Docusate Sodium (Senna/Docusate Sodium 1 Tablet) 2 tablet PO DAILY PRN PRN PRN Reason: CONSTIPATION Sodium Chloride (Sodium Chloride 0.65% 1 [place] Flint.Btl) 2 spray NASAL TID PRN PRN PRN Reason: NASAL DRYNESS Sodium Chloride (0.9% Saline Lock 10 Ml Syringe) 10 - 40 ml IV UD PRN PRN Reason: SALINE FLUSH Last Admin: 10/02/20 13:43 Dose: 10 ml Documented by: Medical Necessity - Tobacco Use Smoking Status: Current every day smoker Tobacco Use: Cigarettes Assessment/Plan All Active Problems (Last Reviewed 10/01/20 @ 02:[address] Ilia Pan MD) Hip fracture, right (Resolved) Closed left hip fracture (Acute) S/P partial hysterectomy (Resolved) Pneumonia (Resolved) Status post fall (Acute) Menopause (Resolved) Weight loss (Resolved) Fatigue (Resolved) Facial pain (Resolved) Nausea (Resolved) Chronic diarrhea (Resolved) Bronchitis (Resolved) Otitis media (Resolved) Hyponatremia (Resolved) Neoplasm (Resolved) #1 left femoral neck [id number] to osteoporosis-postop day #1 left hip hemiarthroplasty-continue PT and OT, patient will need temporary placement in a long term facility #2 essential hypertension #3 severe protein caloric malnutrition-nutritional services are seeing patient #4 anxiety/depression #5 osteoporosis #6 bacteriuria-patient's urinalysis on 10/01/2020 showed positive nitrites, 50-100 WBCs, +4 bacteria. Culture was not ordered, I will continue to observe the patient, she shows no sign of urinary tract infection at this time and she is afebrile. Inpatient E&M: 89820 Subs Hosp L2
--- NOTE | 2020-10-03 13:14 | PN.ORTHO_ITS ---
Patient Problems: Active and Suspected Problems (Last Reviewed 10/01/20 @ 02:[address] Ilia Pan MD) Closed left hip fracture (Acute) Status post fall (Acute) Subjective: Patient states that she feels like she is doing better today than she was yesterday. She took something for nausea today which helped and states that her pain has been minimal as long as she is not doing too much moving. She denies any headaches, dizziness, nausea/vomiting, paresthesia of the extremity, or other symptoms. Objective: Patient seen for progress evaluation while she was lying in bed. Patient was seated upright having just finished lunch. Patient had no signs of discomfort/distress upon entering the room. She was alert and oriented, cooperative, and conversive. She was easily understood without any signs of confusion. Incision site still covered with occlusive dressing postop day 2. Overlying dressing shows no saturation or discharge and there is no surrounding erythema, warmth, or induration. She has very minimal tenderness on palpation directly over the incision site. She has no tenderness surrounding the incision. Patient has soft compartments throughout the extremity, no calf tenderness, and a negative Homans. She has normal sensation to light touch throughout the extremity. She has intact motor function of the knee/ankle/foot/toes. - Physical Exam Vitals/I&O's: Vital Signs Temp Pulse Resp BP Pulse Ox 97.8 F 88 18 154/66 H 98 10/03/20 09:48 10/03/20 10:33 10/03/20 09:48 10/03/20 09:48 10/03/20 09:48 Oxygen Delivery Method Room Air Weight: 92 lb 13.034 oz Body Mass Index (BMI) 15.4 Intake and Output for Last 24 Hours 10/01/20 10/02/20 10/03/20 23:59 23:59 23:59 Intake Total 1411.67 / 1411.67 1435.83 / 1435.83 1731.25 / 1731.25 Output Total 775 / 825 500 / 900 1200 / 1200 Balance 636.67 / 586.67 935.83 / 535.83 531.25 / 531.25 General: Alert, Oriented x3, Cooperative, Well developed, Well nourished Lungs: Normal air movement - Breathing easily without distress Extremities: No clubbing, No cyanosis, No edema, No Calf Tenderness Skin: No rashes, No breakdown, Incision - occlusive postop dressing remains intact. Psych/Mental Status: Normal Affect, Appropriate Microbiology Past 72 Hours 10/01/20 02:30 Mucosa - Nose SARS-CoV-2 Antigen (Rapid) - Final Laboratory Results 10/03/20 05:00: WBC 10.3, RBC 4.06 L, Hgb 12.0, Hct 35.3 L, MCV 86.9, MCH 29.6, MCHC 34.0, RDW Std Deviation 42.5, RDW Coeff of Fernando 13.4, Plt Count 196, MPV 8.8 Current Medications Acetaminophen (Acetaminophen 325 Mg Tablet) 650 mg PO Q6H PRN PRN PRN Reason: Pain Score 1-10/Temp > 100.7 F Acetaminophen (Acetaminophen 500 Mg Tablet) 1,000 mg PO Q8 [facility] Last Admin: 10/03/20 05:53 Dose: 1,000 mg Documented by: Apixaban (Apixaban 2.5 Mg Tablet) 2.5 mg PO BID [facility] Last Admin: 10/03/20 10:33 Dose: 2.5 mg Documented by: Ascorbic Acid (Ascorbic Acid 500 Mg Tablet) 1,000 mg PO DAILY [facility] Last Admin: 10/03/20 10:33 Dose: 1,000 mg Documented by: Calcium/Vitamin D (Calcium Carb/Vitamin D 1 Tablet Tablet) 1 tablet PO BID [facility] Last Admin: 10/03/20 10:33 Dose: 1 tablet Documented by: Sodium Chloride () 1,000 mls @ 75 mls/hr IV .[id number] [facility] Last Infusion: 10/03/20 12:19 Dose: 75 mls/hr Documented by: Lisinopril (Lisinopril 2.5 Mg Tablet) 2.5 mg PO DAILY [facility] Last Admin: 10/03/20 10:33 Dose: 2.5 mg Documented by: Lorazepam (Lorazepam 0.5 Mg Tablet) 0.5 mg PO BID PRN PRN PRN Reason: ANXIETY Last Admin: 10/02/20 15:32 Dose: 0.5 mg Documented by: Melatonin (Melatonin 3 Mg Tablet) 3 mg PO QHS PRN PRN PRN Reason: INSOMNIA Last Admin: 10/01/20 01:44 Dose: 3 mg Documented by: Metoprolol Succinate (Metoprolol(Xl)Succ 25 Mg Tablet) 25 mg PO DAILY [facility] Last Admin: 10/03/20 10:33 Dose: 25 mg Documented by: Multivitamins (Vitamin B Comp W-C Capsule) 1 capsule PO DAILY [facility] Last Admin: 10/03/20 10:33 Dose: 1 capsule Documented by: Nicotine (Nicotine 21 Mg Patch) 21 mg TD DAILY [facility] Last Admin: 10/03/20 10:33 Dose: 21 mg Documented by: Nutritional Formula (Lactose Free) (Ensure Clear 120 Ml Liquid) 120 ml PO 4X/DAY [facility] Last Admin: 10/03/20 10:33 Dose: 120 ml Documented by: Ondansetron HCl (Ondansetron 4 Mg/2 Ml Vial) 4 mg IV Q8H PRN PRN PRN Reason: NAUSEA/VOMITING Last Admin: 10/02/20 07:51 Dose: 4 mg Documented by: Oxycodone HCl (Oxycodone 5 Mg Tablet) 2.5 mg PO Q4H PRN PRN PRN Reason: Pain Score 4-5 Prochlorperazine Edisylate (Prochlorperazine 10 Mg/2 Ml Vial) 10 mg IV Q6H PRN PRN PRN Reason: NAUSEA Last Admin: 10/02/20 13:43 Dose: 10 mg Documented by: Senna/Docusate Sodium (Senna/Docusate Sodium 1 Tablet) 2 tablet PO DAILY PRN PRN PRN Reason: CONSTIPATION Sodium Chloride (Sodium Chloride 0.65% 1 [place].Btl) 2 spray NASAL TID PRN PRN PRN Reason: NASAL DRYNESS Sodium Chloride (0.9% Saline Lock 10 Ml Syringe) 10 - 40 ml IV UD PRN PRN Reason: SALINE FLUSH Last Admin: 10/02/20 13:43 Dose: 10 ml Documented by: Medical Necessity - Tobacco Use Smoking Status: Current every day smoker Tobacco Use: Cigarettes Assessment/Plan All Active Problems (Last Reviewed 10/01/20 @ 02:[address] Ilia Pan MD) Hip fracture, right (Resolved) Closed left hip fracture (Acute) S/P partial hysterectomy (Resolved) Pneumonia (Resolved) Status post fall (Acute) Menopause (Resolved) Weight loss (Resolved) Fatigue (Resolved) Facial pain (Resolved) Nausea (Resolved) Chronic diarrhea (Resolved) Bronchitis (Resolved) Otitis media (Resolved) Hyponatremia (Resolved) Neoplasm (Resolved) Patient evaluated today postop day 2 for left hemiarthroplasty. Patient appears to be doing very well having no concerns or complaints upon evaluation today. She has no signs of infection or inflammation around the incision site and there are no areas of induration or signs of hematoma. She is neurovascularly intact throughout the extremity without signs of DVT. Continue to keep the occlusive dressing in place until day 3 postop. Can remove the dressing on day 3 and cleanse with antibacterial soap and water. Can then pat it dry and apply a new dressing (ABD) over incision. Can then change dressing daily after cleansing and/or showering. Patient to continue anticoagulation with the Eliquis for 3 weeks. She should continue with SCDs and SAVANNAH hose. She is also remain 50% weightbearing on the left lower extremity due to the nondisplaced fracture of the greater trochanter. Patient likely to transfer to transitional care and then will follow up in our office 2 weeks postop for removal of staple, wound check, along with repeat x-rays.
--- NOTE | 2020-10-03 13:18 | CASEMGMT ---
Addendum entered by Thao Fry 10/03/20 14:52: GENARO placed a call to Gifty at [facility] to ask about pre-cert. Gifty states she still hasn't heard anything yet regarding pt's pre-cert. Original Note: Social Work Note GENARO faxed updated clinicals to [facility]. GENARO wrote on fax coversheet that pt is ready for discharge once pre-cert is obtained. Plan: [facility] pending pre-cert Thao Fry MERCURY CRACKING TESTER, MERCHANDISE STOCKER
[2020-10-03 13:51] VITALS: BP 160/67; PULSE 89; RESP 18; TEMP 37.1; O2SAT 96
[2020-10-03 20:24] VITALS: BP 163/53; PULSE 85; RESP 16; TEMP 37.1; O2SAT 96
[2020-10-04 02:36] VITALS: BP 156/61; PULSE 84; RESP 18; TEMP 36.7; O2SAT 97
[2020-10-04] MEDS: Acetaminophen 500 MG Tablet 1000 MG PO (05:45)
[2020-10-04] MEDS: Senna/Docusate Sodium 1 Tablet 2 TABLET PO (05:51)
[2020-10-04] MEDS: 0.9% Saline Lock 10 ML Syringe IV (05:52)
[2020-10-04 06:30] LABS: Hematocrit 29.4 % (37-47); Hemoglobin 10.2 g/dL (12.0-15.0); Mean Corp Hgb Conc 34.7 g/dL (32-36); Mean Corpuscular Hgb 29.5 pg (27.0-32.0); Mean Platelet Vol. 8.6 fl (6.2-12.0); Platelet Count 192 K/mm3 (150-450); RBC Distribution Width CV 13.2 % (11.6-14.6); RBC Distribution Width SD 41.2 fl (35.1-43.9); Red Blood Count 3.46 M/mm3 (4.2-5.4)
[2020-10-04 07:46] VITALS: BP 149/86; PULSE 86; RESP 16; TEMP 36.9; O2SAT 94
--- NOTE | 2020-10-04 10:37 | PCM.TXEXTCAR ---
- Diet 10/02/20 02:29 Diet: Regular - General Food consistency:: Regular Liquid Consistency:: Regular/Thin Type of Dietary Supplement:: Is pt able to select menu?: Yes Diet Comments: Except meds with sips - Wound(s) left hip Wound Type: Surgical Incision - Therapies Weight Bearing: Partial weight bearing Physical Therapy: Eval and Treat Occupational Therapy: Eval and Treat - Problem/Diagnosis (1) Osteoporosis Status: Chronic (2) Closed left hip fracture Status: Acute (3) Severe protein-calorie malnutrition Status: Chronic - Allergies/Procedures Done in Hospital Allergies/Adverse Reactions: Allergies Penicillins Allergy (Intermediate, Verified 09/30/20 21:59) Hives morphine Adverse Reaction (Verified 10/01/20 01:03) Vomiting Procedures: - - left hip hemiarthroplasty - Type of Care/Length of Stay Estimated LOS: Convalescent Care Less Than 30 days Type of Care Needed: Skilled Rehab Potential: Good Prognosis: Good - Additional Orders/Day of Discharge Additional Orders: CHANGE DRESSING DAILY AFTER CLEASENING AREA WITH SOAP AND WATER OR AFTER SHOWERING. 50% WEIGHTBEARING ON LEFT LOWER EXTREMITY. FOLLOWUP WITH DR GONSALES IN TWO WEEKS H&P will serve as current which was dated: 09/30/20 Day of Discharge: 10/04/20 - Dietary and Speech Recommendations Dietitian Recommendations/Changes: Will continue liberal regular diet d/t low BMI and s/s of malnutriton. Will d/c ensure clear w/ meals for increased nutrition if consumed and provide ONS 4x/day w/ medpass. - Follow Up Care Primary Care Physician: Jose Lyons MD [Primary Care Provider] -
[2020-10-04] MEDS: Vitamin B Comp W-C Capsule 1 CAP PO (10:39)
[2020-10-04] MEDS: APIXABAN 2.5 MG TABLET PO (10:39)
[2020-10-04] MEDS: Ensure Clear 120 ML Liquid PO (10:39)
[2020-10-04] MEDS: Calcium Carb/Vitamin D 1 TABLET Tablet PO (10:39)
[2020-10-04 10:40] VITALS: PULSE 86
[2020-10-04] MEDS: Ascorbic Acid 500 MG Tablet 1000 MG PO (10:40)
[2020-10-04] MEDS: Metoprolol(XL)Succ 25 MG Tablet PO (10:40)
[2020-10-04] MEDS: Lisinopril 2.5 MG Tablet PO (10:40)
--- NOTE | 2020-10-04 11:45 | CASEMGMT ---
Social Work Note SW received call from Gifty at [facility] stating pre-cert has been obtained and pt can discharge today. Physician updated. GENARO faxed completed discharge paperwork to Gifty including transfer to extended care facility, signed medication list, any scripts, HENS, and COVID screening tool. Original in SNF Folder and copy on pt's chart. GENARO completed [facility] in HENS. Original in SNF folder and copy on pt's chart. GENARO spoke with RN, pt can transport via wheelchair van. SW accessed trip assist and arranged transportation via wheelchair van for 1:00pm. Transportation form completed and placed on SNF folder and copy on pt's chart. SW in to speak with pt. SW updated pt that pre-cert has been obtained and pt is able to discharge today to [facility] today. Pt states understanding. Pt gave this worker permission to call her son Josué and update him. SW placed a call to pt's son Josué and updated him on discharge and transportation time to [facility]. Josué states understanding. GENARO placed a call to Gifty at [facility] and updated her on transportation time. RN updated on transportation time. Plan: [facility] skilled today with Physician's transporting pt via wheelchair van at 1:00pm Thao Fry MSW, MATH AND PHYSICS INSTRUCTOR
--- NOTE | 2020-10-04 12:12 | PHA.DC.MR ---
Pharmacy Service has performed discharge medication reconciliation for this patient. The patient's discharge medication list was reviewed for discrepancies and discrepancies were resolved. Home Medications lisinopril 10 mg tablet 2.5 mg PO DAILY 08/07/17 Vitamin B Complex 1 tab PO DAILY 06/30/19 Acetaminophen [Tylenol Tablet] 650 mg PO Q6H PRN PRN tab 07/05/19 Calcium Carbonate/Vitamin D3 [Os-Johnie 500-Vit D3 600 Caplet] 1 ea PO BID #1 tab 07/05/19 Nicotine [Nicoderm Cq] 21 mg TRANSDERM. DAILY patch 07/05/19 Sodium Chloride 0.65% [[place] Nasal St[employer]ker] 2 spray NASAL TID PRN PRN spray.btl 07/05/19 Ascorbic Acid [Vitamin C] 1,000 mg PO DAILY 09/30/20 Polyethylene Glycol 3350 [Miralax] 17 gm PO DAILY PRN 09/30/20 Metoprolol(XL)Succ 25 mg PO DAILY 10/03/20 Apixaban [Eliquis] 2.5 mg PO BID tab 10/04/20 Ensure Clear 120 ml PO 4X/DAY liquid 10/04/20 Lorazepam [Ativan] 0.5 mg PO BID PRN PRN #14 tab 10/04/20 Ondansetron [Zofran Odt] 4 mg PO Q6H PRN tab 10/04/20 Oxycodone [Oxyir] 2.5 mg PO Q4H PRN PRN 7 Days #10 tab 10/04/20
--- NOTE | 2020-10-04 19:45 | DS.PCM_ITS ---
Discharge Date and Diagnosis - Problem List Patient Problems: Active and Suspected Problems (Last Reviewed 10/01/20 @ 02:[address] Ilia Pan MD) Closed left hip fracture (Acute) Status post fall (Acute) Date of Admission: 09/30/20 Date of Discharge: 10/04/20 - Primary Discharge Diagnosis Acute Problems: Active Problems (Last Reviewed 10/01/20 @ 02:[address] Ilia Pan MD) #1 left femoral neck [id number] to osteoporosis #2 essential hypertension #3 severe protein caloric malnutrition #4 anxiety/depression #5 osteoporosis #6 bacteriuria-significance unknown - Secondary Discharge Diagnosis Chronic Problems: Chronic Problems (Last Reviewed 10/01/20 @ 02:[address] Ilia Pan MD) Chronic anxiety (Chronic) Severe protein-calorie malnutrition (Chronic) Osteoporosis (Chronic) Primary cancer of right female breast (Chronic) Regional lymph node metastasis present (Chronic) Tobacco dependency (Chronic) Bruit of left carotid artery (Chronic) Chronic rhinitis (Chronic) Thyromegaly (Chronic) Multinodular goiter (Chronic) Mild anemia (Chronic) Cholelithiases (Chronic) History of skin cancer (Chronic) Hemangioma (Chronic) Lentigo (Chronic) Keratosis (Chronic) Tobacco abuse (Chronic) Lung nodule (Chronic) Breast mass in female (Chronic) Hospital Course and Treatment Operations: - - Left hip hemiarthroplasty Procedures: None Summary of Care Provided: The patient is a 80 year old F who was seen in the emergency room at [facility] after sustaining a fall at home and complaining of left hip pain, x-rays obtained in the emergency room showed a left femoral neck fracture, patient was admitted to [place] [id number] and seen in consultation by orthopedic surgery, she was also seen by PT and OT. Patient underwent a left hip hemiarthroplasty, she did well after the surgery and had no major complications. It was felt that she would benefit from a short inpatient stay at a assisted facility and the patient agreed. Patient had a urinalysis performed while in the hospital that showed bacteriuria but the patient showed no symptoms of urinary tract infection and the significance of the bacteriuria was unknown and the patient was not given antibiotics. On 10/04/2020, patient was seen and examined: On examination she appeared in good health and spirits, she does not appear to be in any distress. Vital signs as documented. Skin warm and dry and without overt rashes. Neck without JVD, thyroid appears normal, trachea is midline, neck is supple. Lungs clear, normal air movement was noted. Heart exam notable for regular rhythm, normal sounds and absence of murmurs, rubs or gallops. Abdomen unremarkable and without evidence of organomegaly, masses, or abdominal aortic enlargement, bowel sounds are present in all 4 quadrants, no abdominal tenderness was noted. Extremities nonedematous, no cyanosis was noted, no clubbing was noted. Neuro: Cranial nerves II through XII are grossly intact, no focal motor deficits were noted, sensation to light touch and pinprick is intact, motor exam 5/5 throughout. Psych: Patient is alert and oriented x3, she does not appear anxious or depressed, she does not appear agitated. Patient appeared stable for discharge to a assisted facility for inpatient skilled care on 10/04/2020. Patient Problems: Active and Suspected Problems (Last Reviewed 10/01/20 @ 02:[address] Ilia Pan MD) Closed left hip fracture (Acute) Status post fall (Acute) - Physical Exam Vitals/I&O's: Vital Signs Temp Pulse Resp BP Pulse Ox 98.4 F 86 16 149/86 H 94 10/04/20 07:46 10/04/20 10:40 10/04/20 07:46 10/04/20 07:46 10/04/20 07:46 Oxygen Delivery Method Room Air Weight: 42.1 kg Body Mass Index (BMI) 15.4 Intake and Output for Last 24 Hours 10/02/20 10/03/20 10/04/20 23:59 23:59 23:59 Intake Total 1435.83 / 1435.83 2603.75 / 2603.75 50 / 50 Output Total 500 / 900 1500 / 1500 300 / 300 Balance 935.83 / 535.83 1103.75 / 1103.75 -250 / -250 Laboratory Results 10/04/20 05:45: WBC 8.0, RBC 3.46 L, Hgb 10.2 L, Hct 29.4 L, MCV 85.0, MCH 29.5, MCHC 34.7, RDW Std Deviation 41.2, RDW Coeff of Fernando 13.2, Plt Count 192, MPV 8.6 Home Medications: Medications to take at Discharge lisinopril 10 mg tablet 2.5 mg PO DAILY 08/07/17 Vitamin B Complex 1 tab PO DAILY 06/30/19 Acetaminophen [Tylenol Tablet] 650 mg PO Q6H PRN PRN tab 07/05/19 Calcium Carbonate/Vitamin D3 [Os-Johnie 500-Vit D3 600 Caplet] 1 ea PO BID #1 tab 07/05/19 Nicotine [Nicoderm Cq] 21 mg TRANSDERM. DAILY patch 07/05/19 Sodium Chloride 0.65% [[place] Nasal [place]] 2 spray NASAL TID PRN PRN spray.btl 07/05/19 Ascorbic Acid [Vitamin C] 1,000 mg PO DAILY 09/30/20 Polyethylene Glycol 3350 [Miralax] 17 gm PO DAILY PRN 09/30/20 Metoprolol(XL)Succ 25 mg PO DAILY 10/03/20 Apixaban [Eliquis] 2.5 mg PO BID tab 10/04/20 Ensure Clear 120 ml PO 4X/DAY liquid 10/04/20 Lorazepam [Ativan] 0.5 mg PO BID PRN PRN #14 tab 10/04/20 Ondansetron [Zofran Odt] 4 mg PO Q6H PRN tab 10/04/20 Oxycodone [Oxyir] 2.5 mg PO Q4H PRN PRN 7 Days #10 tab 10/04/20 Following Prescriptions Were Given to Patient: Lorazepam [Ativan] 0.5 mg PO BID PRN PRN #14 tab PRN Reason: Anxiety Prescription Printed Oxycodone [Oxyir] 2.5 mg PO Q4H PRN PRN 7 Days #10 tab PRN Reason: Pain Score 4-5 Prescription Printed Primary Care Physician: Jose Lyons MD [Primary Care Provider] - Disposition: Residential facility Minutes spent on discharge:: 33 Patient Condition:: Stable Medical Necessity - Tobacco Use Smoking Status: Current every day smoker Tobacco Use: Cigarettes Meaningful Use Info Meaningful Use Diagnoses (Choose all that apply): None applicable Inpatient E&M: 65829 Disch Hosp
== END 2020-10-04 13:05 | disposition skilled nursing facility (03) | DRG 521 ==
LOC: ED 23:33 → MS3 23:45
PROVIDERS: Orthopaedic Surgery; Admitting Provider Hospitalist; Emergency Provider Emergency Medicine; PCP Internal Medicine; Visit Provider Internal Medicine
PROC: 0SRS0JA Replacement of Left Hip Joint, Femoral Surface with Synthetic Substitute, Uncemented, Open Approach (ICD-10-PCS; CPT 27125; principal; 2020-10-01 08:25)
DX: M80.052A Age-related osteoporosis with current pathological fracture, left femur, initial encounter for fracture (principal); E43 Unspecified severe protein-calorie malnutrition; Z68.1 Body mass index [BMI] 19.9 or less, adult; F17.210 Nicotine dependence, cigarettes, uncomplicated; Z96.641 Presence of right artificial hip joint; I10 Essential (primary) hypertension; Z79.899 Other long term (current) drug therapy; F32.9 Major depressive disorder, single episode, unspecified; F41.9 Anxiety disorder, unspecified; Z85.3 Personal history of malignant neoplasm of breast; R82.71 Bacteriuria; W18.30XA Fall on same level, unspecified, initial encounter; Y93.G9 Activity, other involving cooking and grilling; Y92.000 Kitchen of unspecified non-institutional (private) residence as the place of occurrence of the external cause; Y99.8 Other external cause status
CPT/HCPCS: 36415; 71045; 73502; 80048; 81001; 82306; 84443; 85025; 85027; 85610; 85730; 86850; 86900; 86901; 87426; 93005; 97110; 97116; 97162; 97166; 97530; 97535; 97803; 99251; 99285; 99406; C1776; J7030; J7050; J7120; A4216; G0463; J2405